=== PATIENT | female | born 1965 | race African-American/Black ===

== ENCOUNTER → 2022-11-16 07:08 | Outpatient (CLI) | payer BC, SELFPAY ==
--- NOTE | ~2022-11-16 | XR_ITS ---
Clinical Indication: Abnormal finding of lung field PA and lateral views of the chest: Comparison: None Findings: The lungs are clear, without evidence of focal consolidation or pleural effusion. Cardiome diastinal silhouette is within normal limits. Bones and soft tissues are unremarkable. Impression: Normal chest. Reviewed, dictated and finalized at location . Impression: Normal chest.
== END ==
DX: R91.8 Other nonspecific abnormal finding of lung field (principal)
CPT/HCPCS: 71046

== ENCOUNTER 2024-04-09 15:04 | Outpatient (CLI) | payer BC, SELFPAY ==
--- OUTSIDE RECORDS SUMMARY | 2024-04-09 16:52 | XMS_ITS | Encounter Summary ---
Author Organization [facility] Address [address] [place] [address] Phone Care Team Providers Care Civil Division Commander Deputy Sheriff Name Role Phone Marcus Shannon MD Primary Care Provider [phone] Reason for Visit * Reason Comments Medication Refill Encounter Details Date Type Department Care Team (Late st Contact Info) Description 07/25/2023 Refill [facility] - [facility] [address] [place] [address] Marcus Shannon MD [address] [address] Medication Refill Social History Tobacco Use Types Packs/Day Years Used Date Smoking Tobacco: Never Smokeless Tobacco: Never Alcohol Use Standard Drinks/Week Comments Yes 0 (1 standard drink = 0.6 oz pur e alcohol) occasionally PHQ-2 Answer Date Recorded Total Score - Questions 1-9 0 09/05 Education Answer Date Recorded What is the highest level of school you have completed or the highest degree you have received? Bachelor's degree (e.g., BA, AB, BS) 11/04/2020 Sexually Active Control Partners Comments Not Currently Comments No Sex and Gender Information Value Date Recorded Sex Assigned at Not on file Legal Sex Female 12:46 PM CDT Gender Identity Not on file Sexual Orientation Not on file documented as of this encounter Miscellaneous Notes * Telephone Encounter - iNcole Hays RN - 07/25/2023 10:58 AM CDT Medication(s) refilled and signed per [facility] Chronic Medication Refill Standing Order for Pediatricand Adult Patients. Requested Prescriptions Pending Prescriptions Disp Refills metoprolol Succinate (TOPROL-XL) 50 MG TABLET SR 24 HR [Pharmacy Med Name: Metoprolol Succinate ER 50 MG Oral Tablet Extended Release 24 Hour] 90 Tablet 1 Sig: Take 1 tablet by mouth once daily Beta-Blockers Protocol Passed - 07/25/2023 6:50 AM Passed - BP on record in the past year Clinician-entered: BP Readings from Last 3 Encounters: 04/19/23 120/84 06/15/22 126/82 03/02/22 130/76 Patient-entered: No data recorded Passed - Visit with relevant provider in past 12 months or upcoming 90 days Recent Visits Date Type Provider Dept 04/19/23 Office Visit Marcus Shannon MD [facility] [place] Showing recent visits within past 365 days and meeting all other requirements Future Appointments Date Type Provider Dept 08/02/23 Appointment Marcus Shannon MD [facility] Showing future appointments within next 90 days and meeting all other requirements documented in this encounter Plan of Treatment Upcoming Encounters Date Type Department Care Team (Late st Contact Info) Description 06/05/2024 2:30 PM CDT Office Visit [facility] - [facility] - [address] [place] [address] Marcus Shannon MD [address] [address] documented as of this encounter Visit Diagnoses Not on filedocumented in this encounter Additional Health Concerns Assessment Noted Time PHQ-9 Depression Total Score: 0 05/08/19 21 9:00 AM CDT documented as of this encounter Care Teams Civil Division Commander Deputy Sheriff Relationship Specialty Start Date End Date Marcus Shannon MD [address] [address] PCP - General Family Medicine 07/06/16 documented as of this encounter
--- OUTSIDE RECORDS SUMMARY | 2024-04-09 16:52 | XMS_ITS | Patient Health Summary ---
Author Organization [facility] Address [address] [place] [address] Care Team Providers Care Treasury Assistant Name Role Phone Mary Jo Ellis MD Primary Care Provider [phone] Note from [facility],non-owned Affiliates and Associated Physician Practices is amultiple site organization consisting of ambulatory clinics and hospital sitesin [place], [place], [place] and [place]. This disclosure is being madepursuant to the Care Everywhere program and may not contain all information available regarding this patient. Last updated 17.[facility] Social History Tobacco Use Types Packs/Day Years Used Date Smoking Tobacco: Never Assessed Sex and Gender Information Value Date Recorded Sex Assigned at Not on file Gender Identity Not on file Sexual Orientation Not on file Procedures * SARS-COV-2 (COVID-19) IN HOUSE(Performed 08/20/2019) * SARS-COV-2 (COVID-19) IN HOUSE(Performed 07/15/2019) * MAMMO BILAT SCREENING(Performed 09/10/2013) Performed for Other screening mammogram * US BREAST LEFT COMPLETE(Performed 08/14/2012) Performed for Abnormal Mammogram, Unspecified * MAMMO LEFT DIAGNOSTIC(Performed 08/14/2012) Performed for Abnormal Mammogram, Unspecified * US PELVIS W TRANSVAG NON OB(Performed 02/14/2010) Performed for Unspecified symptom associated with female genital organs * GROSS + MICRO EXAM(Performed 03/06/2007) Results * SARS-COV-2 (COVID-19) IN HOUSE (08/20/2019 8:00 AM CDT) Only the most recent of2 resultswithin the time period is included. COVID-19 PCR Not detected Not detected, Invalid 08/22/2019 10:10 PM CDT [facility] Microbiology SPECIMEN FROM NASOPHARYNGEAL STRUCTURE / Unknown Collection / Unknown 08/20/2019 8:00 AM CDT 08/22/2019 11:01 AM CDT Narrative [facility] - 08/22/2019 10:10 PM CDT This Real Time RT-PCR assay was developed and its performance characteristics determined by [facility]. This test has been authorized by the Food and Drug administration (FDA)under an Emergency Use Authorization (EUA). This test has been validated in accordance with the FDA's guidance document Policy for Diagnostic Testing in Laboratories Certified to perform High Complexity Testing under CLIA prior to Emergency Use Authorization for Coronavirus Disease-2019 during the Public Health Emergency issued on April 05, 2019. FDA independent review of this validation is pending. This test is only authorized for the duration of time the declaration that circumstances exist justifying the authorization of emergency use of in vitro diagnostic tests for detection of SARS-CoV-2 virus and/or diagnosis of COVID-19 infection under section 564(b)(1) of the Act, 21 U.S.C 360bbb-3 (b)(1), unless the authorization is terminated or revoked sooner. Gerardo Bedoya MD LAB - MICROBIOLOGY ORDERABLES [facility] [address] [place], [place] [id number] [place] [address] * MIRANDA SCREENING DIGITAL IMAGE BILATERAL [id number] (09/10/2013 1:37 PM CDT) Anatomical Region Laterality Modality Breast Bilateral Mammography 09/15/2013 9:34 AM CDT Narrative 09/15/2013 9:34 AM CDT EXAMINATION: Digital screening mammogram on 09/10/2013. PRIOR: 2012 [facility] now available FINDINGS: Computer assisted detection was utilized. The tissue density is predominantly fatty. There is no significant change since the prior mammogram. ASSESSMENT: BIRADS Category 1: Negative mammogram. RECOMMENDATION: Follow up in one year. Thank you for allowing us to participate in the care of your patient. [facility] Breast [facility] utilizes [employer] as a reminder system to notify patients of their next recommended mammogram. Lauren Jacobson MD MAMMO ORDERABLES * US BREAST UNILATERAL LEFT (08/14/2012 10:52 AM CDT) Anatomical Region Laterality Modality Breast Left Ultrasound 08/14/2012 11:0 8 AM CDT Narrative 08/14/2012 11:08 AM CDT EXAMINATION: Left digital diagnostic mammogram on 08/14/2012 with left breast ultrasound. INDICATION: Abnormal screening mammogram FINDINGS: Computer assisted detection was utilized. The tissue density is almost completely fatty. The patient was sent for additional evaluation of a possible lesion based on a abnormal screening mammogram obtained at [facility] on 08/09/2012. The images from that study are available for review as is the report. Images today show possible small nodules present in the area of original concern. No definite discrete nodular lesion is demonstrated. A targeted left breast sonogram is then performed. At the six o'clock position 1 cm from the nipple a 3 mm complicated cyst is present. At the seven o'clock position 2 cm from the nipple, a 4 mm hypoechoic avascular wider than taller nodule is present most compatible with a complicated cyst. A similar but slightly smaller complicated cyst is present at the nine o'clock position 5 cm from the nipple. No suspicious findings are seen. ASSESSMENT: BIRADS Category 1: Negative mammogram.. RECOMMENDATION: One year followup screening mammogram. Procedure Note Von Taylor MD - 08/14/2012 EXAMINATION: Left digital diagnostic mammogram on 08/14/2012 with left breast ultrasound. INDICATION: Abnormal screening mammogram FINDINGS: Computer assisted detection was utilized. The tissue density is almost completely fatty. The patient was sent for additional evaluation of a possible lesion based on a abnormal screening mammogram obtained at [facility] on 08/09/2012. The images from that study are available for review as is the report. Images today show possible small nodules present in the area of original concern. No definite discrete nodular lesion is demonstrated. A targeted left breast sonogram is then performed. At the six o'clock position 1 cm from the nipple a 3 mm complicated cyst is present. At the seven o'clock position 2 cm from the nipple, a 4 mm hypoechoic avascular wider than taller nodule is present most compatible with a complicated cyst. A similar but slightly smaller complicated cyst is present at the nine o'clock position 5 cm from the nipple. No suspicious findings are seen. ASSESSMENT: BIRADS Category 1: Negative mammogram.. RECOMMENDATION: One year followup screening mammogram. Saw Longoria MD US ORDERABLES * MIRANDA DIAG DIRECT DIG IMAGE UNI LEFT [id number] (08/14/2012 10:38 AM CDT) Anatomical Region Laterality Modality Left Mammography 08/14/2012 11:0 8 AM CDT Narrative 08/14/2012 11:08 AM CDT EXAMINATION: Left digital diagnostic mammogram on 08/14/2012 with left breast ultrasound. INDICATION: Abnormal screening mammogram FINDINGS: Computer assisted detection was utilized. The tissue density is almost completely fatty. The patient was sent for additional evaluation of a possible lesion based on a abnormal screening mammogram obtained at [facility] on 08/09/2012. The images from that study are available for review as is the report. Images today show possible small nodules present in the area of original concern. No definite discrete nodular lesion is demonstrated. A targeted left breast sonogram is then performed. At the six o'clock position 1 cm from the nipple a 3 mm complicated cyst is present. At the seven o'clock position 2 cm from the nipple, a 4 mm hypoechoic avascular wider than taller nodule is present most compatible with a complicated cyst. A similar but slightly smaller complicated cyst is present at the nine o'clock position 5 cm from the nipple. No suspicious findings are seen. ASSESSMENT: BIRADS Category 1: Negative mammogram.. RECOMMENDATION: One year followup screening mammogram. Procedure Note Von Taylor MD - 08/14/2012 EXAMINATION: Left digital diagnostic mammogram on 08/14/2012 with left breast ultrasound. INDICATION: Abnormal screening mammogram FINDINGS: Computer assisted detection was utilized. The tissue density is almost completely fatty. The patient was sent for additional evaluation of a possible lesion based on a abnormal screening mammogram obtained at [facility] on 08/09/2012. The images from that study are available for review as is the report. Images today show possible small nodules present in the area of original concern. No definite discrete nodular lesion is demonstrated. A targeted left breast sonogram is then performed. At the six o'clock position 1 cm from the nipple a 3 mm complicated cyst is present. At the seven o'clock position 2 cm from the nipple, a 4 mm hypoechoic avascular wider than taller nodule is present most compatible with a complicated cyst. A similar but slightly smaller complicated cyst is present at the nine o'clock position 5 cm from the nipple. No suspicious findings are seen. ASSESSMENT: BIRADS Category 1: Negative mammogram.. RECOMMENDATION: One year followup screening mammogram. Saw Longoria MD MAMMO ORDERABLES * US PELVIS WITH TRANSVAG NON OB (02/14/2010 10:54 AM FISCAL ANALYST) Anatomical Region Laterality Modality Pelvis Ultrasound 02/14/2010 1:22 PM FISCAL ANALYST Impressions 02/14/2010 3:34 PM FISCAL ANALYST 1. Absent uterus. 2. No pelvic abscess or abnormal fluid collection is seen. 3. Probably hemorrhagic cysts in both ovaries as described. 4. Normal Doppler flow to both ovaries. Narrative 02/14/2010 3:34 PM FISCAL ANALYST Pelvic sonogram: HISTORY: Right pelvic pain. History of hysterectomy. A transabdominal and endovaginal pelvic sonogram as well as Doppler ultrasound are obtained. The uterus is surgically absent. There is no mass identified. No abnormal fluid collection to indicate an abscess. There is a complex nodule measuring 17.2 x 13.9 mm in diameter in the left ovary which measures 4 x 2.2 cm in diameter. The finding is probably a hemorrhagic cyst. Followup examination recommended. There is a 3.1 x 4.9 x 4.5 mm follicle in the right ovary. In addition, there is a hypoechoic nodule measuring 6.4 x 7 x 6.5 mm in diameter in the right ovary. The finding may represent a cyst with debris or a hemorrhagic cyst. The right ovary measures 2.6 x 1.7 x 2.5 cm in diameter. Doppler ultrasound images of both ovaries are obtained and show positive Doppler flow. Procedure Note Chata Del Rosario MD - 02/14/2010 Pelvic sonogram: HISTORY: Right pelvic pain. History of hysterectomy. A transabdominal and endovaginal pelvic sonogram as well as Doppler ultrasound are obtained. The uterus is surgically absent. There is no mass identified. No abnormal fluid collection to indicate an abscess. There is a complex nodule measuring 17.2 x 13.9 mm in diameter in the left ovary which measures 4 x 2.2 cm in diameter. The finding is probably a hemorrhagic cyst. Followup examination recommended. There is a 3.1 x 4.9 x 4.5 mm follicle in the right ovary. In addition, there is a hypoechoic nodule measuring 6.4 x 7 x 6.5 mm in diameter in the right ovary. The finding may represent a cyst with debris or a hemorrhagic cyst. The right ovary measures 2.6 x 1.7 x 2.5 cm in diameter. Doppler ultrasound images of both ovaries are obtained and show positive Doppler flow. IMPRESSION 1. Absent uterus. 2. No pelvic abscess or abnormal fluid collection is seen. 3. Probably hemorrhagic cysts in both ovaries as described. 4. Normal Doppler flow to both ovaries. Saw Longoria MD US ORDERABLES * GROSS + MICRO EXAM (03/06/2007 11:22 AM FISCAL ANALYST) Result CASE NUMBER [id number] Comment: ORDERING PHYSICIAN VON CUBA SPECIMEN TYPE Cyst-post neck Surgeon DR. VON CUBA Gross Exam JOSEFA VALDES Gross Report COPY TO INDICATION FOR PROCEDURE SEBACEOUS CYST POSTERIOR NECK OPERATION I/D INFECTED SEBACEOUS CYST POSTERIOR NECK GROSS THE SPECIMEN IS RECEIVED IN ONE CONTAINER LABELED WITH THE PATIENT'S NAME AND SEBACEOUS CYST POSTERIOR NECK . THE SPECIMEN IS RECEIVED IN FORMALIN AND CONSISTS OF A 1.5 X 1 X 0.8 CM. DISRUPTED CYST NODULE WITH AN ATTACHED 1 X 0.5 CM. UNREMARKABLE ELLIPSE OF WELLS, BROWN SKIN. THE CYST LUMEN IS LINED BY BAITSTA BROWN KERATINOUS MATERIAL. THE SPECIMEN IS SERIALLY SECTIONED AND THEN ENTIRELY SUBMITTED IN A SINGLE CASSETTE. LW/CS MICROSCOPIC EXAM MICROSCOPIC SECTIONS OF THE SEBACEOUS CYST OF THE POSTERIOR NECK SHOW A SKIN FRAGMENT. WITHIN THE DERMIS, EPIDERMAL INCLUSION CYST IS PRESENT. THE CYST WALL IS COMPOSED OF SQUAMOUS EPITHELIUM WITH IDENTIFIABLE GRANULAR LAYER. THE CYST LUMEN IS IN PART FILLED WITH KERATIN DEBRIS. JW/CS DIAGNOSIS DIAGNOSIS [1] SEBACEOUS CYST POSTERIOR NECK -- EPIDERMAL INCLUSION CYST JW/CS Released By KRISTI PINO CPT Code 87614 MISCELLANEOUS SAMPLES / Unknown 03/06/2007 11:22 AM FISCAL ANALYST 03/06/2007 11:23 AM FISCAL ANALYST Historical Provider MD LAB - PATHOLOGY/C YTOLOGY ORDERABLES Care Teams Treasury Assistant Relationship Specialty Start Date End Date Mary Jo Ellis MD [facility] [address] [place] [id number] PCP - General 03/06/18
--- OUTSIDE RECORDS SUMMARY | 2024-04-09 16:52 | XMS_ITS | Encounter Summary ---
Author Organization [facility] Address [address] [place] [address] Phone Care Team Providers Care Lead Technical Writer Name Role Phone Marcus Shannon MD Primary Care Provider [phone] Reason for Visit * Reason Comments Medication Refill Encounter Details Date Type Department Care Team (Late st Contact Info) Description 04/05/2023 Refill [facility] - Family Medicine [facility] [address] [place] [address] Marcus Shannon MD [address] [address] Medication Refill Social History Tobacco Use Types [...] encounter Miscellaneous Notes * Telephone Encounter - Nicole Hays RN - 04/05/2023 9:36 AM CST Medication failed the protocol, provider to review and approve the medication order if appropriate. Requested Prescriptions Pending Prescriptions Disp Refills metFORMIN (GLUCOPHAGE) 500 MG Tablet [Pharmacy Med Name: metFORMIN HCl 500 MG Oral Tablet] 60 Tablet 0 Sig: TAKE 1 TABLET BY MOUTH TWICE DAILY WITH MEALS Biguanides Protocol Failed - 04/05/2023 6:51 AM Failed - HgA1C on record in past 6 months HGB-A1C Date Value Ref Range Status 03/02/2022 6.3 (H) 4.0 - 6.0 % Final Failed - GFR on record in past 6 months No results found for: GFRA Passed - Visit with relevant provider in past 6 months or upcoming 90 days Recent Visits No visits were found meeting these conditions. Showing recent visits within past 182 days and meeting all other requirements Future Appointments Date Type Provider Dept 04/19/23 Appointment Marcus Shannon MD [facility] Showing future appointments within next 90 days and meeting all other requirements CREW SUPPORT WORKER documented in this encounter Plan of Treatment Upcoming Encounters Date Type Department Care Team (Late st Contact Info) Description 06/05/2024 2:30 PM CDT Office Visit [facility] - Family Medicine - [address] [place] [address] Marcus Shannon MD [address] [address] documented as of this encounter Visit Diagnoses Not on filedocumented in this encounter Additional Health Concerns Assessment Noted Time PHQ-9 Depression Total Score: 0 05/08/19 21 9:00 AM CDT documented as of this encounter Care Teams Lead Technical Writer Relationship Specialty Start Date End Date Marcus Shannon MD [address] [address] PCP - General Family Medicine 07/06/16 documented as of this encounter
--- OUTSIDE RECORDS SUMMARY | 2024-04-09 16:52 | XMS_ITS | Encounter Summary ---
Author Organization [facility] Address [address] [place] [address] Phone Care Team Providers Care Insurance Marketing Rep Name Role Phone Marcus Shannon MD Primary Care Provider [phone] Reason for Visit * Reason Comments Medication Refill Encounter Details Date Type Department Care Team (Late st Contact Info) Description 08/31/2021 Refill [facility] - [facility] [address] [place] [address] Marcus Shannon MD [address] [address] Medication Refill Social History Tobacco Use Types Packs/Day Years Used Date Smoking Tobacco: Never Smokeless Tobacco: Never Alcohol Use Standard Drinks/Week Comments Yes 0 (1 standard drink = 0.6 oz pur e alcohol) occasionally PHQ-2 Answer Date Recorded Total Score - Questions 1-9 0 04/0 03/2020 Education Answer Date Recorded What is the [...] Telephone Encounter - Nicole Hays RN - 08/31/2021 2:17 PM CDT metoprolol Succinate (TOPROL-XL) 50 MG TABLET SR 24 HR 90 Tablet 0 08/15/2021 Sig: Take 1 tablet by mouth once daily Sent to pharmacy as: Metoprolol Succinate ER 50 MG Oral Tablet Extended Release 24 Hour (TOPROL-XL) Class: E Prescribe E-Prescribing Status: Receipt confirmed by pharmacy (08/15/2021 ??9:31 AM CDT) Order Questions ?? metoprolol Succinate (TOPROL-XL) 50 MG TABLET SR 24 HR [[id number]] 8 Status: Active Mode: Ordering in Standing Orders mode Communicated by: Nicole Hays RN Ordering user: Nicole Hays RN 08/15/21930 Ordering provider: Marcus Shannon MD Authorized by: Marcus Shannon MD Frequency: ??08/15/21 - Until Discontinued Released by: Nicole Hays RN 08/15/[address] documented in this encounter Plan of Treatment Upcoming Encounters Date Type Department Care Team (Late st Contact Info) Description 06/05/2024 2:30 PM CDT Office Visit [facility] - Family Medicine - [place] [address] [place] [address] Marcus Shannon MD [address] [address] documented as of this encounter Visit Diagnoses Not on filedocumented in this encounter Additional Health Concerns Assessment Noted Time PHQ-9 Depression Total Score: 0 05/08/19 21 9:00 AM CDT documented as of this encounter Care Teams Insurance Marketing Rep Relationship Specialty Start Date End Date Marcus Shannon MD [address] [place] [id number] PCP - General Family Medicine 07/06/16 documented as of this encounter
--- OUTSIDE RECORDS SUMMARY | 2024-04-09 16:52 | XMS_ITS | Encounter Summary ---
Author Organization [facility] Address [address] [place] [address] Phone Care Team Providers Care Doorperson Or Luggage Porter Name Role Phone Marcus Shannon MD Primary Care Provider [phone] Reason for Visit * Reason Comments Medication Refill Encounter Details Date Type Department Care Team (Late st Contact Info) Description 03/02/2023 Refill [facility] - [facility] [address] [place] [address] Marcus Shannon MD [address] [address] Medication Refill Social History Tobacco Use Types [...] encounter Miscellaneous Notes * Telephone Encounter - Payton Saeed RMA - 03/06/2023 1:44 PM PHOTO MASK PATTERN GENERATOR scheduled O MASK PATTERN GENERATOR * Telephone Encounter - Nicole Hays RN - 03/02/2023 3:05 PM CST Needs OV with PCP O MASK PATTERN GENERATOR * Telephone Encounter - Nicole Hays RN - 03/02/2023 3:05 PM CST Medication failed the protocol, provider to review and approve the medication order if appropriate. Requested Prescriptions Pending Prescriptions Disp Refills metFORMIN (GLUCOPHAGE) 500 MG Tablet [Pharmacy Med Name: metFORMIN HCl 500 MG Oral Tablet] 60 Tablet 0 Sig: TAKE 1 TABLET BY MOUTH TWICE DAILY WITH MEALS Biguanides Protocol Failed - 03/02/2023 10:54 AM Failed - Visit with relevant provider in past 6 months or upcoming 90 days Recent Visits No visits were found meeting these conditions. Showing recent visits within past 182 days and meeting all other requirements Future Appointments No visits were found meeting these conditions. Showing future appointments within next 90 days and meeting all other requirements Failed - HgA1C on record in past 6 months HGB-A1C Date Value Ref Range Status 03/02/2022 6.3 (H) 4.0 - 6.0 % Final Failed - GFR on record in past 6 months No results found for: GFRA O MASK PATTERN GENERATOR documented in this encounter Plan of Treatment Upcoming Encounters Date Type Department Care Team (Late st Contact Info) Description 06/05/2024 2:30 PM CDT Office Visit [facility] - [facility] Medicine [facility] [address] [place] [address] Marcus Shannon MD #[address] [address] documented as of this encounter Visit Diagnoses Not on filedocumented in this encounter Additional Health Concerns Assessment Noted Time PHQ-9 Depression Total Score: 0 05/08/19 21 9:00 AM CDT documented as of this encounter Care Teams Doorperson Or Luggage Porter Relationship Specialty Start Date End Date Marcus Shannon MD [address] [place] [id number] PCP - General Family Medicine 07/06/16 documented as of this encounter
--- OUTSIDE RECORDS SUMMARY | 2024-04-09 16:52 | XMS_ITS | Referral Summary ---
Author Organization [facility] Address [address] [place] [address] Care Team Providers Care Mailing Specialist Name Role Phone Mary Jo Ellis MD Primary Care Provider [phone] Source Comments [facility],non-owned Affiliates and Associated Physician Practices is amultiple site organization consisting of ambulatory clinics and hospital sitesin [place], [place], [place] and [place]. This disclosure is being madepursuant to the Care Everywhere program and may not contain all information available regarding this patient. Last updated 17.[facility] depict Social History Tobacco Use Types Packs/Day Years Used Date Smoking Tobacco: Never Assessed Sex and Gender Information Value Date Recorded Sex Assigned at Not on file Gender Identity Not on file Sexual Orientation Not on file Plan of Treatment Not on file Procedures Procedure Name Priority Date/Time Associated Diagnosis Comments MAMMO BILAT SCREENING Routine 09/10/2013 1:37 PM CDT Other screening mammogram from Last 3 Months or Most Recently Relevant to Health Maintenance Results * MIRANDA SCREENING DIGITAL IMAGE BILATERAL [id number] (09/10/2013 1:37 PM CDT) Anatomical Region Laterality Modality Breast Bilateral Mammography 09/15/2013 9:34 AM CDT Narrative 09/15/2013 9:34 AM CDT EXAMINATION: Digital screening mammogram on 09/10/2013. PRIOR: 2012 [facility] now available FINDINGS: Computer assisted detection was utilized. The tissue density is predominantly fatty. There is no significant change since the prior mammogram. ASSESSMENT: BIRADS Category 1: Negative mammogram. RECOMMENDATION: Follow up in one year. Thank you for allowing us to participate in the care of your patient. [facility] utilizes [employer] as a reminder system to notify patients of their next recommended mammogram. Lauren Jacobson MD MAMMO ORDERABLES from Last 3 Months or Most Recently Relevant to Health Maintenance Care Teams Mailing Specialist Relationship Specialty Start Date End Date Mary Jo Ellis MD [address] [place] [address] PCP - General 03/06/18
--- OUTSIDE RECORDS SUMMARY | 2024-04-09 16:52 | XMS_ITS | Encounter Summary ---
Author Organization [facility] Address [address] [place] [address] Phone Care Team Providers Care Carpenter Cradle And Dolly Name Role Phone Marcus Shannon MD Primary Care Provider [phone] Reason for Visit * Reason Comments Medication Refill Encounter Details Date Type Department Care Team (Late st Contact Info) Description 04/21/2023 Refill [facility] - Family Medicine [facility] [address] [place] [address] Marcus Shannon MD [address] [address] Medication Refill Social History Tobacco Use Types [...] encounter Miscellaneous Notes * Telephone Encounter - Flor Wayne RN - 04/21/2023 11:44 AM CDT Medication(s) refilled and signed per [facility] Chronic Medication Refill Standing Order for Pediatricand Adult Patients. Requested Prescriptions Pending Prescriptions Disp Refills metoprolol Succinate (TOPROL-XL) 50 MG TABLET SR 24 HR [Pharmacy Med Name: Metoprolol Succinate ER 50 MG Oral Tablet Extended Release 24 Hour] 90 Tablet 0 Sig: Take 1 tablet by mouth once daily Beta-Blockers Protocol Passed - 04/21/2023 9:05 AM Passed - BP on record in the past year Clinician-entered: BP Readings from Last 3 Encounters: 04/19/23 120/84 06/15/22 126/82 03/02/22 130/76 Patient-entered: No data recorded Passed - Visit with relevant provider in past 12 months or upcoming 90 days Recent Visits Date Type Provider Dept 04/19/23 Office Visit Marcus Shannon MD [facility] 06/15/22 Office Visit Paul Russ APRN, MARKET CONSULTANT [facility] Showing recent visits within past 365 days and meeting all other requirements Future Appointments No visits were found meeting these conditions. Showing future appointments within next 90 days and meeting all other requirements documented in this encounter Plan of Treatment Upcoming Encounters Date Type Department Care Team (Late st Contact Info) Description 06/05/2024 2:30 PM CDT Office Visit [facility] - Family [facility] - [place] [address] [place] [address] Marcsu Shannon MD [address] [address] documented as of this encounter Visit Diagnoses Not on filedocumented in this encounter Additional Health Concerns Assessment Noted Time PHQ-9 Depression Total Score: 0 05/08/19 21 9:00 AM CDT documented as of this encounter Care Teams Carpenter Cradle And Dolly Relationship Specialty Start Date End Date Marcus Shannon MD #[address] [address] PCP - General Family Medicine 07/06/16 documented as of this encounter
--- OUTSIDE RECORDS SUMMARY | 2024-04-09 16:52 | XMS_ITS | Clinical Summary ---
Author Organization [facility] Address [address] [place] [address] Phone Care Team Providers Care Aquatic Scientist Name Role Phone Marcus Shannon MD Primary Care Provider [phone]- [phone] Allergies Active Allergy Reactions Criticality Noted Date Comments Tetracycline Anaphylaxis High 07/06/2016 Cetirizine Hcl Other (see Comments) Low 08/20/2019 Makes her feel funny , disconnected , lightheaded Medications Multiple Vitamin (MULTI-VITAMIN PO) Take by mouth every morning. Active Cholecalciferol (Vitamin D3) 1000 UNIT Tablet Take by mouth. Activ e famotidine (PEPCID) 20 MG Tablet Take 1 Tablet by mouth 2 times daily. 90 Tablet 3 05/21/19 21 Active pantoprazole (PROTONIX) 40 MG Tablet Delayed ResponseIndicat ions:Gastroesop hageal reflux disease, unspecified whether esophagitis present Take 1 Tablet by mouth daily. 30 Tablet 2 03/01/19 23 Active Additional Information Patient not taking.Reported on 04/19/2023 atorvastatin (LIPITOR) 10 MG Tablet Take 1 Tablet by mouth daily. 90 Tablet 3 04/19/19 24 Active EQ Aspirin Adult Low Dose 81 MG Tablet Delayed Response Take 1 tablet by mouth once daily 100 Tablet 1 08/03/19 24 Active probiotic (VSL#3) Pack 1 Packet by Per NG tube route daily. Active [place]-3 Fatty Acids (FISH OIL PO) Take by mouth. Activ e fluticasone (FLONASE) 50 MCG/ACT Suspension 1 [place] by Nasal route daily. Use in each nostril as directed. 18.2 mL 11/21/19 24 Active metoprolol Succinate (TOPROL-XL) 50 MG TABLET SR 24 HR Take 1 tablet by mouth once daily 90 Tablet 1 01/28/20 24 Active metFORMIN (GLUCOPHAGE) 500 MG Tablet TAKE 1 TABLET BY MOUTH TWICE DAILY WITH MEALS 60 Tablet 03/24/19 25 Active metFORMIN (GLUCOPHAGE) 500 MG Tablet TAKE 1 TABLET BY MOUTH TWICE DAILY WITH MEALS 60 Tablet 02/19/19 25 025 Discontinued Active Problems Problem Noted Date Diagnosed Date Type 2 diabetes mellitus treated without insulin 03/02/2022 Moderate obstructive sleep apnea 10/06/2020 Diet-controlled type 2 diabetes mellitus 021 Hyperlipidemia 06/19/2020 Diabetic eye exam 06/19/2020 Postprandial epigastric pain 05/20/2020 Belching 05/20/2020 Obesity (BMI 30-39.9) 05/07/2020 Shingles 01/08/2019 Elevated hemoglobin A1c 03/03/2018 Vitamin D insufficiency 07/09/2016 Hyperglycemia 07/09/2016 Prediabetes 07/09/2016 Elevated liver enzymes 07/09/2016 Non morbid obesity 07/06/2016 Tachycardia 07/06/2016 High blood pressure 07/06/2016 Family history of diabetes mellitus (DM) 017 Gastroesophageal reflux disease 07/06/2016 Abnormal EKG 07/06/2016 Encounters Date Type Department Care Team Description 03/23/2024 Refill [facility] [place] [id number] Marcus Shannon MD Medication Refill 02/20/2024 Refill [facility] [place] [address] Marcus Shannon MD Medication Refill 01/27/2024 Refill [facility] [address] [place] [address] Marcus Shannon MD Medication Refill from Last 3 Months Immunizations Immunization Administration Dates Next Due Covid-19, Mrna, Lnp-s, Pf, 3 0 Mcg/0.3 Ml Dose (TriActive) 05/07/2020,04/16/2020 Influenza Vaccine greater than 3 yrs 11/19/2010, 11/16/2008 Influenza Vaccine less than 3 yrs 01/05/2022 Influenza Vaccine, MDCK,quad rivalent, pres free 11/10/2019,11/14/2018 Influenza Vaccine, Quadrivalent, PF 2020,1 02/06/2017,11/21/2016 Influenza, Seasonal, Injectable, Undefined 01/05 Td (Adult) 11/16/2008 Family History Medical History Relation Name Comments Diabetes Brother Hypertension Brother Diabetes Maternal Aunt Hypertension Maternal Aunt Cancer Mother cervical Diabetes Mother Hypertension Mother Diabetes Sister Hypertension Sister Relation Name Status Comments Brother Alive Maternal Aunt Mother Sister Alive Social History Tobacco Use Types Packs/Day Years [...] on file Sexual Orientation Not on file Last Filed Vital Signs Vital Sign Reading Time Taken Comments Blood Pressure 134/82 11/21/2023 9:18 AM CDT Pulse 66 11/21/2023 9:13 AM CDT Temperature 36.5 C (97.7 F) 11/21/2023 9:13 AM CDT Respiratory Rate 20 11/21/2023 9:13 AM CDT Oxygen Saturation 98% 11/21/2023 9:13 AM CDT Inhaled Oxygen Concentration - - Weight 110.2 kg (243 lb) 04/19/2023 4:08 PM CDT Height 172.7 cm (5' 8 ) 04/19/2023 4:08 PM CDT Body Mass Index 36.95 04/19/2023 4:08 PM CDT Plan of Treatment Upcoming Encounters Date Type Department Care Team (Late st Contact Info) Description 06/05/2024 2:30 PM CDT [facility] [place] [address] [place] [address] Marcus Shannon MD [address] [address] Health Maintenance Due Date Last Done Comments Diabetes: Eye Exam 1964 Diabetes: Foot Exam 1965 TdaP Immunization 1964 Hepatitis B Immunization (1 of 3 - 19+ 3-dose series) 11/09/1983 Pneumococcal Immunization (50+ years) (1 of 2 - PCV) 11/09/1983 HPV/Cotest 1994 Cologuard 2014 Immunochemical Fecal Occult Blood 2014 Zoster Immunization (1 of 2) 2014 Diabetes: Nephropathy Screening 2021 2020, 05/07/2020, 07/07/2016 Diabetes: Hemoglobin A1c 08/30/2022 023, 09/15/2021, 2020, Additional history exists Mammogram 07/05/2024 07/06/2023, 02/06, 11/30/2020, Additional history exists Colonoscopy 07/17/2024 07/18/2019 Colorectal Cancer Screening 07/17/2024 Respiratory Syncytial Virus (RSV) Immunization (Adult) (1 - 1-dose 75+ series) 11/09/2039 07/18/2019 DTaP/Tdap/Td Immunization Discontinued 11/16/2008 Hepatitis C Virus (HCV) Screening Completed 02/19/2018 Influenza Immunization Completed , 01/05/2022, 2020, Additional history exists SARS-COV-2 Immunization Completed 11/23/19 24, 04/21/2023, 01/21/2021, Additional history exists Cervical Cancer Screening (CCS) Discontinued Meningococcal Immunization (ACWY) Aged Out No longer eligible based on patient's age to complete this topic Pap Smear Discontinued Rotavirus Immunization Aged Out No lo nger eligible based on patient's age to complete this topic Procedures Procedure Name Priority Date/Time Associated Diagnosis Comments MIRANDA SCREENING BILATERAL DIGITAL W CAD W SURESH Routine 07/06/2023 12:26 PM CDT Visit for screening mammogram HEMOGLOBIN A1C W/ ESTIMATED GLUCOSE Routine 03/02/2022 3:32 PM RACE RELATIONS ADVISER Type 2 diabetes mellitus treated without insulin (HCC) CMP (COMPREHENSIVE METABOLIC PANEL) Routine 2020 9:30 AM CDT Hyperlipidemia, unspecified hyperlipidemia type HEPATITIS PANEL ACUTE (AHP) Routine 02/19/2018 4:29 PM RACE RELATIONS ADVISER Elevated liver enzymes from Last 3 Months or Most Recently Relevant to Health Maintenance Results * MIRANDA SCREENING BILATERAL DIGITAL W CAD W SURESH (07/06/2023 12:26 PM CDT) Anatomical Region Laterality Modality breast Bilateral Mammography 07/06/2023 1:40 PM CDT Narrative 07/06/2023 5:31 PM CDT - MIRANDA SCREENING BILATERAL DIGITAL W CAD W SURESH BILATERAL DIGITAL SCREENING MAMMOGRAM 3D/2D WITH CAD WITH MEDIOLATERAL OBLIQUE CRANIOCAUDAL: 07/06/2023 The study was acquired using digital technology and interpreted from soft copy. Current study was also evaluated with ICAD version 7.2. 2D digital mammographic views, as well as 3D digital tomosynthesis were performed in the CC and MLO projections. CLINICAL: Routine screening. Patient has no complaints. No personal history of cancer. No family history of breast cancer. COMPARISONS: Comparison is made to exams dated: 03/02/2022, 11/30/2020, and 12/03/2019 [facility]. BREAST TISSUE:There are scattered fibroglandular densities in both breasts. FINDINGS: No significant masses, calcifications, or other findings are seen in either breast. There has been no significant interval change. IMPRESSION: BI-RAD 1 NEGATIVE There is no mammographic evidence of malignancy. A 1 year screening mammogram is recommended. A letter will be sent to the patient with these results. The patient will be entered into a reminder system with a target due date of 1 year for her next screening exam. Electronically signed by: Morgan giordano/penrad:07/06/2023 16:07:11 Paper Coater(s): JAMILAH Vásquez)(M), [facility] letter sent: Normal Exam Reading location: [place] BI-RADS: 1 Negative Procedure Note Morgan Cain MD - 07/06/2023 - MIRANDA SCREENING BILATERAL DIGITAL W CAD W SURESH BILATERAL DIGITAL SCREENING MAMMOGRAM 3D/2D WITH CAD WITH MEDIOLATERAL OBLIQUE CRANIOCAUDAL: 07/06/2023 The study was acquired using digital technology and interpreted from soft copy. Current study was also evaluated with ICAD version 7.2. 2D digital mammographic views, as well as 3D digital tomosynthesis were performed in the CC and MLO projections. CLINICAL: Routine screening. Patient has no complaints. No personal history of cancer. No family history of breast cancer. COMPARISONS: Comparison is made to exams dated: 03/02/2022, 11/30/2020, and 12/03/2019 [facility]. BREAST TISSUE:There are scattered fibroglandular densities in both breasts. FINDINGS: No significant masses, calcifications, or other findings are seen in either breast. There has been no significant interval change. IMPRESSION: BI-RAD 1 NEGATIVE There is no mammographic evidence of malignancy. A 1 year screening mammogram is recommended. A letter will be sent to the patient with these results. The patient will be entered into a reminder system with a target due date of 1 year for her next screening exam. Electronically signed by: Morgan giordano/penrad:07/06/2023 16:07:11 Paper Coater(s): JAMILAH Vásquez)(M), [facility] letter sent: Normal Exam Reading location: [place] BI-RADS: 1 Negative Marcus Shannon MD IMG MAMMO ORDERABLES Final Result * (ABNORMAL) HEMOGLOBIN A1C W/ ESTIMATED GLUCOSE (03/02/2022 3:32 PM RACE RELATIONS ADVISER) HGB-A1C 6.3(H) 4.0 - 6.0 % 03/02/2022 4:18 PM RACE RELATIONS ADVISER [facility] Est Average Glucose 134.1 mg/dL 03/02/2022 4:18 PM RACE RELATIONS ADVISER [facility] Blood Venipuncture / Unknown 03/02/2022 3:32 PM RACE RELATIONS ADVISER 03/02/2022 3:32 PM RACE RELATIONS ADVISER Narrative [facility] - 03/02/2022 4:18 PM RACE RELATIONS ADVISER HEMOGLOBIN A1C: DIABETIC PATIENTS: WELL-CONTROLLED: 6.2 - 7.0 INTERMEDIATE WELL-CONTROLLED: 7.0 - 9.0 POORLY-CONTROLLED: >9.0 Marcus Shannon MD CHEMISTRY ORDERABLES Final Result [facility] [address] [place] [address] * (ABNORMAL) CMP (COMPREHENSIVE METABOLIC PANEL) (2020 9:30 AM CDT) [facility] SODIUM 138 136 - 144 mmol/L 2020 11:04 AM CDT [facility] POTASSIUM 4.1 3.5 - 5.1 mmol/L 2020 11:04 AM CDT [facility] CHLORIDE 101 100 - 110 mmol/L 2020 11:04 AM CDT [facility] CO2, VENOUS 27 22 - 32 mmol/L 2020 11:04 AM CDT [facility] ANION GAP 14.1 8.0 - 20.0 mmol/L 2020 11:04 AM CDT [facility] GLUCOSE 117(H) 70 - 99 mg/dL 2020 11:04 AM CDT [facility] BUN 13 6 - 20 mg/dL 2020 11:04 AM CDT [facility] CREATININE, BLOOD 0.86 0.60 - 1.10 mg/dL 2020 11:04 AM [facility] BUN/CREATININE RATIO 15 12 - 20 ratio 2020 11:04 AM [facility] TOTAL PROTEIN 7.8 6.0 - 8.3 g/dL 2020 11:04 AM [facility] ALBUMIN 4.4 3.5 - 5.2 g/dL 2020 11:04 AM [facility] Comment: The colormetric methods used for the determination of Albumin may lead to falsely elevated test results in patients suffering from renal failure or insufficiency due to interference with other proteins. A/G RATIO 1.3 1.0 - 2.0 2020 11:04 AM [facility] CALCIUM 9.4 8.9 - 10.3 mg/dL 2020 11:04 AM [facility] T BILI 0.4 <=1.2 mg/dL 2020 11:04 AM [facility] SGOT (AST) 24 <=32 U/L 2020 11:04 AM [facility] SGPT (ALT) 24 <=41 U/L 2020 11:04 AM [facility] ALKALINE PHOSPHATASE 100 35 - 105 U/L 2020 11:04 AM [facility] GFR, EST. NONAFRICAN >60 >=60 2020 11:04 AM [facility] GFR, EST. >60 >=60 021 11:04 AM [facility] Comment: Creatinine Clearance is the preferred criteria for selecting drug dose adjustments in renally impaired patients. The GFR is provided as additional pertinent clinical information. GFR is reported in mL/min/1.73 sq m. IS THE PATIENT REQUIRED TO BE FASTING? No 2020 11:04 AM [facility] Blood Venipuncture / Unknown 2020 9:30 AM CDT 2020 10:28 AM CDT Marcus Shannon MD CHEMISTRY ORDERABLES Final Result Performing Organization Address City/State/ZIP Sd de Phone Number [facility] [address] [place] [address] * HEPATITIS PANEL ACUTE (AHP) (02/19/2018 4:29 PM RACE RELATIONS ADVISER) HEPATITIS A IGM ANTIBODY NON DETECTED NON DETECTED 02/19/2018 10:40 PM RACE RELATIONS ADVISER [facility] Comment: IGM Antibodies to HAV not detected. Does not exclude early acute or recovered HAV infection. HEP B CORE AB (IGM) NON DETECTED NON DETECTED 02/19/2018 10:40 PM RACE RELATIONS ADVISER [facility] Comment: IGM anti-HBC not detected. Does not exclude the possibility of exposure to or infection with HBV. HEPATITIS B SURFACE ANTIGEN NON DETECTED NON DETECTED 02/19/2018 10:40 PM RACE RELATIONS ADVISER [facility] Comment: A nonreactive test result does not exclude the possibility of exposure to or infection with Hepatitis B virus. A nonreactive test result in individuals with prior exposure to hepatitis B may be due to antigen levels below the detection limit of this assay or lack of antigen reactivity to the antibodies in this assay. hepatitis C antibody 0.08 <1 S/CO 02/19/2018 10:40 PM RACE RELATIONS ADVISER [facility] Comment: Signal/Cutoff ratio < 0.79 is Nondetected Signal/Cutoff ratio 0.80-0.99 is Grayzone Signal/Cutoff ratio > 0.99 is Detected Supplemental assays are recommended if signal/cutoff ratio is >/=1.00. Signal/cutoff ratio result >/= 5.00 is 97% predictive of positivity for recombinant immunoblot assay (RIBA) and will be reported to the [place] Department of Public Health as required. Blood specimen (specimen) Venipuncture / Unknown 02/19/2018 4:29 PM RACE RELATIONS ADVISER 02/19/2018 4:37 PM RACE RELATIONS ADVISER Marcus Shannon MD HEMATOLOGY ORDERABLES Final Result [facility] [address] [place] [address], from Last 3 Months or Most Recently Relevant to Health Maintenance Insurance [facility] Care Teams Aquatic Scientist Relationship Specialty Start Date End Date Marcus Shannon MD [address] [address] PCP - General Family Medicine 07/06/16
--- OUTSIDE RECORDS SUMMARY | 2024-04-09 16:52 | XMS_ITS | Encounter Summary ---
Author Organization [facility] Address [address] [place] [address] Phone Care Team Providers Care Business Analysis Analyst Name Role Phone Marcus Shannon MD Primary Care Provider [phone] [phone] Reason for Visit * Reason Comments Medication Refill Encounter Details Date Type Department Care Team (Late st Contact Info) Description 01/16/2023 [facility]ill [facility] [address] [place] [address] Marcus Shannon MD #[address] [address] Medication Refill Social History Tobacco Use Types [...] Telephone Encounter - Nicole Hays RN - 01/17/2023 8:25 AM CST Medication failed the protocol, provider to review and approve the medication order if appropriate. Requested Prescriptions Pending Prescriptions Disp Refills EQ Aspirin Adult Low Dose 81 MG Tablet Delayed Response [Pharmacy Med Name: EQ Aspirin Adult Low Dose 81 MG Oral Tablet Delayed Release] 100 Tablet 1 Sig: Take 1 tablet by mouth once daily Platelet Inhibitors Protocol Failed - 01/16/2023 5:09 PM Failed - CBC on record in the past year WBC Date Value Ref Range Status 05/07/2020 7.76 4.00 - 12.00 10(3)/mcL Final WBC ESTERASE Date Value Ref Range Status 07/07/2016 25 /uL (A) Negative Final WBC MORPH STATUS Date Value Ref Range Status 07/07/2016 Normal Final RBC Date Value Ref Range Status 05/07/2020 4.56 3.80 - 5.30 10(6)/mcL Final RBC MORPHOLOGY CONSISTENT WITH INDICES Date Value Ref Range Status 07/07/2016 Yes Final HEMATOCRIT (HCT) Date Value Ref Range Status 05/07/2020 37.1 36.0 - 47.0 % Final HEMOGLOBIN (HGB) Date Value Ref Range Status 05/07/2020 12.0 12.0 - 15.8 g/dL Final MCV Date Value Ref Range Status 05/07/2020 81.4 (L) 82.0 - 96.0 fL Final MCH Date Value Ref Range Status 05/07/2020 26.3 26.0 - 34.0 pg Final MCHC Date Value Ref Range Status 05/07/2020 32.3 31.0 - 36.0 g/dL Final Passed - Visit with relevant provider in past year or upcoming 90 days Recent Visits Date Type Provider Dept 06/15/22 Office Visit Paul Russ APRN, [facility] 03/02/22 Office Visit Marcus Shannon MD [facility] Showing recent visits within past 365 days and meeting all other requirements Future Appointments No visits were found meeting these conditions. Showing future appointments within next 90 days and meeting all other requirements ITY CONTROL documented in this encounter Plan of Treatment Upcoming Encounters Date Type Department Care Team (Late st Contact Info) Description 06/05/2024 2:30 PM CDT Office Visit [facility] [address] [place] [address] Marcus Shannon MD #[address] [address] documented as of this encounter Visit Diagnoses Not on filedocumented in this encounter Additional Health Concerns Assessment Noted Time PHQ-9 Depression Total Score: 0 05/08/19 21 9:00 AM CDT documented as of this encounter Care Teams Business Analysis Analyst Relationship Specialty Start Date End Date Marcus Shannon MD #[address] [address] PCP - General Family Medicine 07/06/16 documented as of this encounter
--- OUTSIDE RECORDS SUMMARY | 2024-04-09 16:52 | XMS_ITS | Encounter Summary ---
Author Organization [facility] Address [address] [place] [address] Care Team Providers Care Dog Groomer Name Role Phone Mary Jo Ellis MD Primary Care Provider [phone]- [phone] Encounter Details Date Type Department Care Team (Late st Contact Info) Description 07/15/2019 Lab Requisition [facility] [address] [place] [address] Gerardo Bedoya MD Social History Tobacco Use Types Packs/Day Years Used Date Smoking Tobacco: Never Assessed Sex and Gender Information Value Date Recorded Sex Assigned at Not on file Gender Identity Not on file Sexual Orientation Not on file documented as of this encounter Plan of Treatment Not on file documented as of this encounter Procedures Procedure Name Priority Date/Time Associated Diagnosis Comments SARS-COV-2 (COVID-19) IN HOUSE Routine 07/15/2019 8:30 AM CDT documented in this encounter Results * SARS-COV-2 (COVID-19) IN HOUSE (07/15/2019 8:30 AM CDT) COVID-19 PCR Not detected Not detected, Invalid 07/15/2019 11:24 PM CDT [facility] Microbiology SPECIMEN FROM NASOPHARYNGEAL STRUCTURE / Unknown Collection / Unknown 07/15/2019 8:30 AM CDT 07/15/2019 3:27 PM CDT Narrative [facility] - 07/15/2019 11:24 PM CDT This Real Time RT-PCR assay was developed and its performance characteristics determined by [facility]. This test has been authorized [...] Gerardo Bedoya MD LAB - MICROBIOLOGY ORDERABLES [facility] [address] [place] [address], [facility] [phone] documented in this encounter Visit Diagnoses Not on filedocumented in this encounter Additional Health Concerns Infection Onset Date Last Indicated Resolved Time COVID-19 Under Investigation 07/15/2019 07/15/2019 07/15/2019 11:24 PM CDT COVID-19 Under Investigation 08/22/2019 08/20/2019 08/22/2019 10:10 PM CDT documented as of this encounter Care Teams Dog Groomer Relationship Specialty Start Date End Date Mary Jo Ellis MD [facility] [place] [address] PCP - General 03/06/18 documented as of this encounter
--- OUTSIDE RECORDS SUMMARY | 2024-04-09 16:52 | XMS_ITS | Encounter Summary ---
Author Organization [facility] Address [address] [place] [address] Phone Care Team Providers Care Regular Senior Care Provider Name Role Phone Marcus Shannon MD Primary Care Provider [phone] [phone] Reason for Visit * Reason Comments Medication Refill Encounter Details Date Type Department Care Team (Late st Contact Info) Description 04/25/2020 Refill [facility] [address] [place] [address] Marcus Shannon MD [address] [address] Medication Refill Social History Tobacco Use Types Packs/Day Years Used Date Smoking Tobacco: Never Smokeless Tobacco: Never Alcohol Use Standard Drinks/Week Comments Yes 0 (1 standard drink = 0.6 oz pur e alcohol) occasionally PHQ-2 Answer Date Recorded PHQ-2 Score 0 10/10/2018 Sexually Active Control Partners Comments Not Currently Comments No Sex and Gender Information Value Date Recorded Sex Assigned at Not on file Legal Sex Female 12:46 PM CDT Gender Identity Not on file Sexual Orientation Not on file COVID-19 Exposure Response Date Recorded In the last month, have you been in contact with someone who was confirmed or suspected to have Coronavirus / COVID-19? No / Unsure 04/13/2020 12:40 PM ASSOCIATE SALES documented as of this encounter Miscellaneous Notes * Telephone Encounter - Vicky Juan RN - 04/26/2020 10:01 AM CDT Medication failed the protocol, provider to review and approve the medication order if appropriate. Requested Prescriptions Pending Prescriptions Disp Refills metoprolol Succinate (TOPROL-XL) 50 MG TABLET SR 24 HR [Pharmacy Med Name: Metoprolol Succinate ER 50 MG Oral Tablet Extended Release 24 Hour] 30 Tablet 0 Sig: Take 1 tablet by mouth once daily Cardiovascular: Beta Blockers Failed - 04/25/2020 3:32 PM Failed - Valid encounter within last 12 months Past Office Visits Recent Outpatient Visits 1 year ago Essential hypertension [facility] Marcus Maher MD 1 year ago Hyperglycemia [facility] Marcus Maher MD 2 years ago Essential hypertension [facility] Marcus Maher MD 3 years ago Non morbid obesity, unspecified obesity type [facility] Marcus Maher MD Upcoming Appointments Future Appointments In 1 week Marcus Shannon MD [facility] - Recent and Past Visits Recent Visits No visits were found meeting these conditions. Showing recent visits within past 460 days with a meds authorizing provider and meeting all other requirements Future Appointments Date Type Provider Dept 05/07/20 Appointment Marcus Shannon MD [facility] Showing future appointments within next 90 days with a meds authorizing provider and meeting all other requirements Passed - Last BP in normal range BP Readings from Last 1 Encounters: 07/18/19 92/78 documented in this encounter Plan of Treatment Upcoming Encounters Date Type Department Care Team (Late st Contact Info) Description 06/05/2024 2:30 PM CDT Office [facility] [place] [address] Marcus Shannon MD #[address] [address] documented as of this encounter Visit Diagnoses Not on filedocumented in this encounter Additional Health Concerns Assessment Noted Time PHQ-9 Depression Total Score: 0 02/19/19 19 3:00 PM ASSOCIATE SALES documented as of this encounter Care Teams Regular Senior Care Provider Relationship Specialty Start Date End Date Marcus Shannon MD [address] [address] PCP - General Family Medicine 07/06/16 documented as of this encounter
--- OUTSIDE RECORDS SUMMARY | 2024-04-09 16:52 | XMS_ITS | Encounter Summary ---
Author Organization [facility] Address [address] [place] [address] Care Team Providers Care Wine Manager Name Role Phone Mary Jo Ellis MD Primary Care Provider [phone]- [phone] Encounter Details Date Type Department Care Team (Late st Contact Info) Description 08/22/2019 Lab Requisition [facility] [address] [place] [address] Gerardo Bedoya MD Social History Tobacco Use [...] Diagnosis Comments SARS-COV-2 (COVID-19) IN HOUSE Routine 08/20/2019 8:00 AM CDT documented in this encounter Results * SARS-COV-2 (COVID-19) IN HOUSE (08/20/2019 8:00 AM CDT) COVID-19 PCR Not detected Not detected, Invalid 08/22/2019 10:10 PM CDT [facility] Microbiology SPECIMEN FROM NASOPHARYNGEAL STRUCTURE / Unknown Collection / Unknown 08/20/2019 8:00 AM CDT 08/22/2019 11:01 AM CDT Narrative [facility] - 08/22/2019 10:10 PM CDT This Real Time RT-PCR assay was developed and its performance characteristics determined by [facility]. This test has been authorized [...] Gerardo Bedoya MD LAB - MICROBIOLOGY ORDERABLES [facility] [address] [place] [address] [phone] documented in this encounter Visit Diagnoses Not on filedocumented in this encounter Additional Health Concerns Infection Onset Date Last Indicated Resolved Time COVID-19 Under Investigation 08/22/2019 08/20/2019 08/22/2019 10:10 PM CDT documented as of this encounter Care Teams Wine Manager Relationship Specialty Start Date End Date Mary Jo Ellis MD [facility] [place], [place] [id number] PCP - General 03/06/18 documented as of this encounter
--- OUTSIDE RECORDS SUMMARY | 2024-04-09 16:52 | XMS_ITS | Encounter Summary ---
Author Organization [facility] Address [address] [place] [address] Phone Care Team Providers Care Livestock Farmworker Name Role Phone Marcus Shannon MD Primary Care Provider [phone] [phone] Reason for Visit * Reason Comments Medication Refill Encounter Details Date Type Department Care Team (Late st Contact Info) Description 02/20/2020 Refill [facility] [address] [place], [place] [id number] Marcus Shannon MD [address] [address] Medication Refill Social History Tobacco Use Types [...] encounter Miscellaneous Notes * Telephone Encounter - Edita Ravi CMA - 02/23/2020 8:23 AM CST Dime message was sent to patient. PROGRAM ENGAGEMENT DIRECTOR * Telephone Encounter - Nicole Hays RN - 02/20/2020 1:07 PM CST Patient needs appointment. PROGRAM ENGAGEMENT DIRECTOR documented in this encounter Plan of Treatment Upcoming Encounters Date Type Department Care Team (Late st Contact Info) Description 06/05/2024 2:30 PM CDT Office Visit [facility] [address] [place] [address] Marcus Shannon MD [address] [address] documented as of this encounter Visit Diagnoses Not on filedocumented in this encounter Additional Health Concerns Assessment Noted Time PHQ-9 Depression Total Score: 0 02/19/19 19 3:00 PM IT PROGRAM ENGAGEMENT DIRECTOR documented as of this encounter Care Teams Livestock Farmworker Relationship Specialty Start Date End Date Marcus Shannon MD [address] [address] PCP - General Family Medicine 07/06/16 documented as of this encounter
--- OUTSIDE RECORDS SUMMARY | 2024-04-09 16:52 | XMS_ITS | Encounter Summary ---
Author Organization [facility] Address [address] [place] [address] Phone Care Team Providers Care Industrial Trainer Name Role Phone Marcus Shannon MD Primary Care Provider [phone] Reason for Visit * Reason Comments Medication Refill Encounter Details Date Type Department Care Team (Late st Contact Info) Description 05/16/2023 Refill [facility] #2 [place] [address] Marcus Shannon MD [address] [address] Medication Refill Social History Tobacco Use Types [...] Telephone Encounter - Nicole Hays RN - 05/16/2023 10:58 AM CDT Medication failed the protocol, provider to review and approve the medication order if appropriate. Requested Prescriptions Pending Prescriptions Disp Refills metFORMIN (GLUCOPHAGE) 500 MG Tablet [Pharmacy Med Name: metFORMIN HCl 500 MG Oral Tablet] 60 Tablet 5 Sig: TAKE 1 TABLET BY MOUTH TWICE DAILY WITH MEALS Biguanides Protocol Failed - 05/16/2023 6:50 AM Failed - HgA1C on record in [...] Dept 04/19/23 Office Visit Marcus Shannon MD [facility] Showing recent visits within past 182 days and meeting all other requirements Future Appointments Date Type Provider Dept 08/02/23 Appointment Marcus Shannon MD [facility] Showing future appointments within next 90 days and meeting all other requirements documented in this encounter Plan of Treatment Upcoming Encounters Date Type Department Care Team (Late st Contact Info) Description 06/05/2024 2:30 PM CDT [facility] [place] [address] [place] [address] Marcus Shannon MD [address] [address] documented as of this encounter Visit Diagnoses Not on filedocumented in this encounter Additional Health Concerns Assessment Noted Time PHQ-9 Depression Total Score: 0 05/08/19 21 9:00 AM CDT documented as of this encounter Care Teams Industrial Trainer Relationship Specialty Start Date End Date Marcus Shannon MD [address] [address] PCP - General Family Medicine 07/06/16 documented as of this encounter
--- OUTSIDE RECORDS SUMMARY | 2024-04-09 16:52 | XMS_ITS | Clinical Summary ---
Author Organization [facility] Address [address] [place] [address] Care Team Providers Care Warp Picker Name Role Phone Mary Jo Ellis MD Primary Care Provider [phone]- [phone] Source Comments [facility],non-owned Affiliates and Associated Physician Practices is amultiple site organization consisting of ambulatory clinics and hospital sitesin [place], [place], [place] and [place]. This disclosure is being madepursuant to the Care Everywhere program and may not contain all information available regarding this patient. Last updated 17.[facility] Prezi Social History Tobacco Use Types Packs/Day Years Used Date Smoking Tobacco: Never Assessed Sex and Gender Information Value Date Recorded Sex Assigned at Not on file Gender Identity Not on file Sexual Orientation Not on file Plan of Treatment Health Maintenance Due Date Last Done Comments COLOGUARD (AGES 45-75) - COL ON CA SCREENING 1964 COLON MONITORING 1964 COLONOSCOPY - COLON CA SCREENING 1964 CT COLONOGRAPHY - COLON CA SCREENING 1964 Colorectal Cancer Screening 1964 FIT - COLON CA SCREENING 1964 FLEX SIG - COLON CA SCREENING 1964 LIPID TESTING 1964 PAP SMEAR 1964 HIV SCREENING 11/09/1979 HEPATITIS C SCREENING 11/04/1982 DTAP/TDAP/TD VACCINES (1 - Tdap) 11/09/1983 HEPATITIS B VACCINE (1 of 3 - 19+ 3-dose series) 11/09/1983 PNEUMOCOCCAL VACCINE 50+ (1 of 1 - PCV) 2014 ZOSTER VACCINE (1 of 2) 2014 MAMMOGRAM 09/11/2015 09/10/2013 COVID-19 VACCINE (2023-2 5 season) 2023 INFLUENZA VACCINE (#1) 2023 DEPRESSION SCREENING 02/06/2024 HIB VACCINE Aged Out No longer eligi ble based on patient's age to complete this topic HPV VACCINE Aged Out No longer eligi ble based on patient's age to complete this topic MENINGOCOCCAL (Group B) VACCINE Aged Out No longer eligible based on patient's age to complete this topic MENINGOCOCCAL VACCINE Aged Out No richar ashlie eligible based on patient's age to complete this topic PNEUMOCOCCAL VACCINE Aged Out No long er eligible based on patient's age to complete [...] Digital screening mammogram on 09/10/2013. PRIOR: 2012 [facility] now available FINDINGS: Computer assisted detection was utilized. The tissue density is predominantly fatty. There is no significant change since the prior mammogram. ASSESSMENT: BIRADS Category 1: Negative mammogram. RECOMMENDATION: Follow up in one year. Thank you for allowing us to participate in the care of your patient. [facility] Breast Care utilizes Bal[employer] as a reminder system to notify patients of their next recommended mammogram. Lauren Jacobson MD MAMMO ORDERABLES from Last 3 Months or Most Recently Relevant to Health Maintenance Care Teams Warp Picker Relationship Specialty Start Date End Date Mary Jo Ellis MD [address] [place] [address] PCP - General 03/06/18
[2024-04-09 18:22] LABS: Basophils Absolute Auto 0.1 K/mm3 (0.0-0.1); Basophils Percent Auto 0.7 % (0.2-1.2); Eosinophils Absolute Auto 0.2 K/mm3 (0-0.3); Eosinophils Percent Auto 1.7 % (0-4.4); Hematocrit 35.4 % (37.0-47.0); Hemoglobin 11.7 g/dL (12.0-15.0); Immature Granulocyte Absolute 0.02 K/mm3 (0.00-0.031); Immature Granulocyte Percent A 0.2 % (0-0.5); Lymphocytes Absolute Auto 4.14 K/mm3 (0.9-3.2); Lymphocytes Percent Auto 41.4 % (18.3-44.2); Mean Corpuscular HGB Conc 33.1 g/dl (32-36); Mean Corpuscular Hemoglobin 25.8 pg (26-34); Mean Platelet Volume 12.1 fl (7.4-10.4); Monocytes Absolute Auto 0.6 K/mm3 (0.1-0.6); Monocytes Percent Auto 5.5 % (2.6-8.5); Neutrophils Absolute Auto 5.1 K/mm3 (1.3-6.7); Neutrophils Percent Auto 50.5 % (45.5-73.1); Platelet Count Result 227 k/mm3 (150-375); Red Blood Count 4.54 M/mm3 (4.2-5.4); Red Cell Distribution Width 15.2 % (11.5-14.5)
[2024-04-09 18:38] LABS: Alanine Aminotransferase 26 U/L (6-35); Albumin Level 4.5 g/dL (3.5-5.1); Alkaline Phosphatase 133 U/L (38-126); Anion Gap 13 mmol/L (4-12); Aspartate Amino Transferase 30 U/L (14-36); Bilirubin,Total 0.6 mg/dL (0.2-1.3); Blood Urea Nitrogen 16 mg/dL (7-17); Calcium 10.1 mg/dL (8.4-10.2); Carbon Dioxide 29 mmol/L (22-30); Chloride 98 mmol/L (98-107); Cholesterol 174 mg/dL (0-200); Estimated Glomerular Filt Rate > 60; Glucose 103 mg/dL (65-110); HDL Direct 56 mg/dL; Potassium 3.9 mmol/L (3.4-5.0); Sodium 140 mmol/L (137-145); Triglycerides 72 mg/dL (<150)
[2024-04-09 18:46] LABS: Vitamin D 25 Hydroxy 53.3 ng/mL
[2024-04-09 18:49] LABS: LDL Cholesterol Direct 83 mg/dL
[2024-04-09 18:51] LABS: Creatinine Urine 89.4 mg/dL
[2024-04-09 18:55] LABS: Microalbumin Urine Random 35.8 mg/L (0-16.7)
[2024-04-09 19:06] LABS: Hemoglobin A1C 7.9 % (<5.7)
[2024-04-10 09:21] LABS: Iron 72 ug/dL (37-170)
[2024-04-10 09:30] LABS: Percent Iron Saturation 19 % (20-50)
[2024-04-10 10:29] LABS: Folic Acid > 20.0 ng/mL (2.76->20)
== END 2024-04-09 15:05 | disposition home or self-care (01) ==
LOC: ANHGOSHLAB 15:05
PROVIDERS: Family Medicine; PCP Nurse Practitioner Family; Visit Provider Nurse Practitioner Family
DX: E78.5 Hyperlipidemia, unspecified (principal); I10 Essential (primary) hypertension; E55.9 Vitamin D deficiency, unspecified; E11.9 Type 2 diabetes mellitus without complications; D64.9 Anemia, unspecified
CPT/HCPCS: 36415; 80053; 80061; 82043; 82306; 82607; 82728; 82746; 83036; 83540; 83550; 84443; 85025

== ENCOUNTER 2024-05-23 15:20 | Outpatient (CLI) | payer BC, SELFPAY ==
--- NOTE | ~2024-05-23 | US_ITS ---
US thyroid INDICATION: Nontoxic goiter TECHNIQUE: Real-time sonographic images of the thyroid gland were obtained. COMPARISON: No prior studies for comparison. FINDINGS: The right thyroid lobe measures 3.1 x 0.9 times centimeters. The left thyroid lobe measure s 3.2 x 1 x 1.1 m. There is normal echotexture and echogenicity throughout the thyroid gland. No disc rete nodules identified. Normal vascular flow is present. IMPRESSION: 1. Normal thyroid without discrete nodule or abnormal vascularity. Reviewed, dictated and finalized at location A.
== END 2024-05-23 15:21 | disposition home or self-care (01) ==
LOC: MICIMG 15:20
PROVIDERS: PCP Nurse Practitioner Family; Visit Provider Nurse Practitioner Family
DX: E04.9 Nontoxic goiter, unspecified (principal)
CPT/HCPCS: 76536

== ENCOUNTER 2024-10-03 07:41 | Outpatient (CLI) | payer BC, SELFPAY ==
--- OUTSIDE RECORDS SUMMARY | 2000-11-09 19:00 | XMS_ITS | Continuity of Care Document ---
Author Organization [facility] Address [address] [place] [address] Phone Care Team Providers Care Hot Press Operator Name Role Phone Tom OD, Bert Unavailable Unavailable Advance Directives Directive Yes / No Effective Date File Name No Information Encounters Encounter Description Practice Location Reason(s) For Visit Diagnoses Date Provider Providers Copied on Encounter [facility], [address], [place], [place], [id number], [place] tel:[phone] SEC [facility] No Information Oct-0 6-200 1 Tom OD Bert. [address] , [address], [place], [address], [place]. tel:[phone] Family History Family Member Type Diagnosis Age At Onset No Information Payers Payer name Insurance type Covered libertarian ID Authoriza tion(s) No Information Social History [...]
--- NOTE | ~2024-10-03 | MM_ITS ---
EXAMINATION: MM screening brodie BI w bryson HISTORY: Screening TECHNIQUE: Craniocaudal and mediolateral oblique 3-D tomosynthesis images were obtained and synthetic 2-D images were generated. CAD analysis was submitted and interpreted. COMPARISON: None provided BREAST PARENCHYMAL COMPOSITION: There are scattered areas of fibroglandular density. FINDINGS: There is no evidence of suspicious mass, calcification, or architectural distortion to suggest malignancy in either breast. IMPRESSION: 1. No mammographic evidence of malignancy. 2. Recommend routine screening mammography in one year. BI-RADS Category 1: Negative Reviewed, dictated and finalized at location B.
--- OUTSIDE RECORDS SUMMARY | 2024-10-03 07:50 | XMS_ITS | Encounter Summary ---
Author Organization [facility] Address [address] [place] [address] Phone Care Team Providers Care Assistant Center Director Name Role Phone Provider, None Primary Care Provider Unavailabl e Reason for Visit * Reason Comments Medication Refill Encounter Details Date Type Department Care Team (Late st Contact Info) Description 08/20/2024 Refill [facility] [address]2 [place] [address] Marcus Shannon MD #[address] [address] Medication Refill Social History Tobacco Use Types [...] on file documented as of this encounter Visit Diagnoses Not on filedocumented in this encounter Additional Health Concerns Assessment Noted Time PHQ-9 Depression Total Score: 0 05/08/19 21 9:00 AM CDT documented as of this encounter Care Teams Assistant Center Director Relationship Specialty Start Date End Date Provider, None [place] PCP - General 07/26/24 documented as of this encounter
--- OUTSIDE RECORDS SUMMARY | 2024-10-03 07:50 | XMS_ITS | Encounter Summary ---
Author Organization [facility] Address [address] [place] [address] Phone Care Team Providers Care Process Safety Management Engineer Name Role Phone Marcus Shannon MD Primary Care Provider [phone] Provider, None Primary Care Provider Unavailabl e Reason for Visit * Reason Comments Medication Refill Encounter Details Date Type Department Care Team (Late st Contact Info) Description 06/20/2024 Refill [facility] #2 [place] [address] Marcus Shannon MD #[address] [address] Medication Refill Social History Tobacco Use Types [...] Telephone Encounter - Nicole Hays RN - 06/20/2024 10:23 AM CDT Not seen in over a year - pt has cancelled her last 3 appts - most recent 06/05/24 documented in this encounter Plan of Treatment Not on file documented as of this encounter Visit Diagnoses Not on filedocumented in this encounter Additional Health Concerns Assessment Noted Time PHQ-9 Depression Total Score: 0 05/08/19 21 9:00 AM CDT documented as of this encounter Care Teams Process Safety Management Engineer Relationship Specialty Start Date End Date Marcus Shannon MD #[address] [address] PCP - General Family Medicine 07/06/16 07/25/24 Provider, None [place] PCP - General 07/26/24 documented as of this encounter
--- OUTSIDE RECORDS SUMMARY | 2024-10-03 07:50 | XMS_ITS | Clinical Summary ---
Author Organization [facility] Address [address] [place] [address] Phone Care Team Providers Care Herb Counselor Name Role Phone Provider, None Primary Care Provider Unavailabl e Allergies Active Allergy Reactions Criticality Noted Date Comments Tetracycline Anaphylaxis High 07/06/2016 Cetirizine Hcl Other (see Comments) Low 08/20/2019 Makes her feel funny, disconnected, lightheaded Medications Multiple Vitamin (MULTI-VITAMIN PO) Take by mouth every morning. Active Cholecalciferol (Vitamin D3) 1000 UNIT Tablet Take by mouth. Active famotidine (PEPCID) 20 MG Tablet Take 1 Tablet by mouth 2 times daily. 90 Tablet 3 1 Active pantoprazole (PROTONIX) 40 MG Tablet Delayed ResponseIndicati ons:Gastroesopha geal reflux disease, unspecified whether esophagitis present Take 1 Tablet by mouth daily. 30 Tablet 2 3 Active Additional Information Patient not taking.Reported on 04/19/2023 EQ Aspirin Adult Low Dose 81 MG Tablet Delayed Response Take 1 tablet by mouth once daily 100 Tablet 1 4 Active probiotic (VSL#3) Pack 1 Packet by Per NG tube route daily. Active [place]-3 Fatty Acids (FISH OIL PO) Take by mouth. Activ e fluticasone (FLONASE) 50 MCG/ACT Suspension 1 [place] by Nasal route daily. Use in each nostril as directed. 18.2 mL 4 Active atorvastatin (LIPITOR) 10 MG Tablet Take 1 tablet by mouth once daily 90 Tablet 5 Active metFORMIN (GLUCOPHAGE) 500 MG Tablet TAKE 1 TABLET BY MOUTH TWICE DAILY WITH MEALS 60 Tablet 5 Active metoprolol Succinate (TOPROL-XL) 50 MG TABLET SR 24 HR Take 1 tablet by mouth once daily 30 Tablet 5 Active Active Problems Problem Noted Date Diagnosed Date [...] Encounters Date Type Department Care Team Description 08/20/2024 Refill [facility]2 [place] [phone] Marcus Shannon MD Medication Refill 08/01/2024 Refill [facility] [place] [address] Marcus Shannon MD Medication Refill 07/26/2024 Telephone [facility] [address] [place] [place] [address] Marcus Shannon MD Appointment 07/24/2024 Refill [facility] #2 [place] [address] Marcus Shannon MD Medication Refill from Last 3 Months Immunizations Immunization Administration Dates Next Due Covid-19, Mrna, Lnp-s, Pf, 3 0 Mcg/0.3 Ml Dose ([employer]) 05/07/2020,04/16/2020 Influenza Vaccine greater than 3 yrs [...] 4:08 PM CDT Height 172.7 cm (5' 8) 04/19/2023 4:08 PM CDT Body Mass Index 36.95 04/19/2023 4:08 PM CDT Plan of Treatment Health Maintenance Due Date Last Done Comments Diabetes: Eye Exam 1965 Diabetes: Foot Exam 1964 TdaP Immunization 1964 Hepatitis B Immunization (1 of 3 - 19+ 3-dose series) 11/09/1983 Pneumococcal Immunization (50+ years) (1 of 2 - PCV) 11/09/1983 Cologuard 2009 Immunochemical Fecal Occult Blood 2009 Zoster Immunization (1 of 2) 2014 Diabetes: Nephropathy Screening 2021 2020, 05/07/2020, 07/07/2016 Diabetes: Hemoglobin A1c 08/30/2022 023, 09/15/2021, 2020, Additional history exists Mammogram 07/05/2024 07/06/2023, 02/06, 11/30/2020, Additional history exists Colonoscopy 07/17/2024 07/18/2019 Colorectal Cancer Screening 07/17/2024 Influenza Immunization (#1) 10/06/202411/05, 01/05/2022, 01/05/2022, Additional history exists Respiratory Syncytial Virus (RSV) Immunization (Adult) (1 - 1-dose 75+ series) 11/09/2039 DTaP/Tdap/Td Immunization Discontinued 11/16/2008 Hepatitis C Virus (HCV) Screening Completed 02/19/2018 SARS-COV-2 Immunization Completed 11/23/19 24, 04/21/2023, 01/21/2021, Additional history exists Human Papillomavirus (HPV) Immunization Aged Out No longer eligible based on patient's age to complete this topic Meningococcal Immunization (ACWY) Aged Out No longer eligible based on patient's age to complete this topic Rotavirus Immunization Aged Out No lo nger eligible based on patient's age to complete this topic Procedures Procedure Name Priority Date/Time Associated Diagnosis Comments MIRANDA SCREENING BILATERAL DIGITAL W CAD W SURESH Routine 07/06/2023 12:26 PM CDT Visit for screening mammogram HEMOGLOBIN A1C W/ ESTIMATED GLUCOSE Routine 03/02/2022 3:32 PM CIVIL ENGINEER HELPER Type 2 diabetes mellitus treated without insulin (HCC) CMP (COMPREHENSIVE METABOLIC PANEL) Routine 2020 9:30 AM CDT Hyperlipidemia, unspecified hyperlipidemia type HEPATITIS PANEL ACUTE (AHP) Routine 02/19/2018 4:29 PM CIVIL ENGINEER HELPER Elevated liver enzymes from Last 3 Months [...] copy. Current study was also evaluated with [employer] version 7.2. 2D digital mammographic views, as well as 3D digital tomosynthesis were performed in the CC and MLO projections. CLINICAL: Routine screening. Patient has no complaints. No personal history of cancer. No family history of breast cancer. COMPARISONS: Comparison is made to exams dated: 03/02/2022, 11/30/2020, and 12/03/2019 [facility]. BREAST TISSUE:There are scattered fibroglandular densities in [...] next screening exam. Electronically signed by: Morgan giordano/uma:07/06/2023 16:07:11 Checking Department Supervisor(s): RT Thalia(R)(M), [facility] letter sent: Normal Exam Reading location: [facility] BI-RADS: 1 Negative Procedure Note Morgan Cain [...] to exams dated: 03/02/2022, 11/30/2020, and 12/03/2019 [facility]. BREAST TISSUE:There are scattered fibroglandular densities in [...] next screening exam. Electronically signed by: Morgan giordano/uma:07/06/2023 16:07:11 Checking Department Supervisor(s): RT Thalia(R)(M), [facility] letter sent: Normal Exam Reading location: [facility] BI-RADS: 1 Negative [facility] Dc Shannon MD IMG MAMMO ORDERABLES Nataliia l Result * (ABNORMAL) HEMOGLOBIN A1C W/ ESTIMATED GLUCOSE (03/02/2022 3:32 PM CIVIL ENGINEER HELPER) HGB-A1C 6.3(H) 4.0 - 6.0 % 03/02/2022 4:18 PM CIVIL ENGINEER HELPER [facility] Est Average Glucose 134.1 mg/dL 03/02/2022 4:18 PM CIVIL ENGINEER HELPER [facility] Blood Venipuncture / Unknown 03/02/2022 3:32 PM CIVIL ENGINEER HELPER 03/02/2022 3:32 PM CIVIL ENGINEER HELPER Narrative [facility] - 03/02/2022 4:18 PM CIVIL ENGINEER HELPER HEMOGLOBIN A1C: DIABETIC PATIENTS: WELL-CONTROLLED: 6.2 - 7.0 INTERMEDIATE WELL-CONTROLLED: 7.0 - 9.0 POORLY-CONTROLLED: >9.0 Marcus Shannon MD CHEMISTRY ORDERABLES Nataliia matos Result [facility] [address] [place] [address] * (ABNORMAL) CMP (COMPREHENSIVE METABOLIC PANEL) (2020 9:30 AM CDT) SODIUM 138 136 - 144 mmol/L 2020 11:04 AM CDT [facility] POTASSIUM 4.1 3.5 - 5.1 mmol/L 2020 11:04 AM CDT [facility] CHLORIDE 101 100 - 110 mmol/L 2020 11:04 AM CDT [facility] CO2, VENOUS 27 22 - 32 mmol/L 2020 11:04 AM CDT [facility] ANION GAP 14.1 8.0 - 20.0 mmol/L 2020 11:04 AM CDT [facility] GLUCOSE 117(H) 70 - 99 mg/dL 2020 11:04 AM CDT [facility] BUN 13 6 - 20 mg/dL 2020 11:04 AM CDT [facility] CREATININE, BLOOD 0.86 0.60 - 1.10 mg/dL 2020 11:04 AM CDT [facility] BUN/CREATININE RATIO 15 12 - 20 ratio 2020 11:04 AM CDT [facility] TOTAL PROTEIN 7.8 6.0 - 8.3 g/dL 2020 11:04 AM CDT [facility] ALBUMIN 4.4 3.5 - 5.2 g/dL 2020 11:04 AM CDT [facility] Comment: The colormetric methods used for the determination of Albumin may lead to falsely elevated test results in patients suffering from renal failure or insufficiency due to interference with other proteins. A/G RATIO 1.3 1.0 - 2.0 2020 11:04 AM CDT [facility] CALCIUM 9.4 8.9 - 10.3 mg/dL 2020 11:04 AM CDT [facility] T BILI 0.4 <=1.2 mg/dL 2020 11:04 AM CDT [facility] SGOT (AST) 24 <=32 U/L 2020 11:04 AM CDT [facility] SGPT (ALT) 24 <=41 U/L 2020 11:04 AM CDT [facility] ALKALINE PHOSPHATASE 100 35 - 105 U/L 2020 11:04 AM CDT [facility] GFR, EST. NONAFRICAN >60 >=60 2020 11:04 AM CDT [facility] GFR, EST. >60 >=60 021 11:04 AM CDT [facility] Comment: Creatinine Clearance is the preferred criteria for selecting drug dose adjustments in renally impaired patients. The GFR is provided as additional pertinent clinical information. GFR is reported in mL/min/1.73 sq m. IS THE PATIENT REQUIRED TO BE FASTING? No 2020 11:04 AM CDT [facility] Blood Venipuncture / Unknown 2020 9:30 AM CDT 2020 10:28 AM CDT us Marcus Shannon MD CHEMISTRY ORDERABLES Nataliia matos Result [facility] [address] [place] [address] * HEPATITIS PANEL ACUTE (AHP) (02/19/2018 4:29 PM CIVIL ENGINEER HELPER) HEPATITIS A IGM ANTIBODY NON DETECTED NON DETECTED 02/19/2018 10:40 PM CIVIL ENGINEER HELPER [facility] Comment: IGM Antibodies to HAV not detected. Does not exclude early acute or recovered HAV infection. HEP B CORE AB (IGM) NON DETECTED NON DETECTED 02/19/2018 10:40 PM CIVIL ENGINEER HELPER [facility] Comment: IGM anti-HBC not detected. Does not exclude the possibility of exposure to or infection with HBV. HEPATITIS B SURFACE ANTIGEN NON DETECTED NON DETECTED 02/19/2018 10:40 PM CIVIL ENGINEER HELPER [facility] Comment: A nonreactive test result does not [...] antibody 0.08 <1 S/CO 02/19/2018 10:40 PM CIVIL ENGINEER HELPER [facility] Comment: Signal/Cutoff ratio < 0.79 is Nondetected Signal/Cutoff ratio 0.80-0.99 is Grayzone Signal/Cutoff ratio > 0.99 is Detected Supplemental assays are recommended if signal/cutoff ratio is >/=1.00. Signal/cutoff ratio result >/= 5.00 is 97% predictive of positivity for recombinant immunoblot assay (RIBA) and will be reported to the [place] Department of Public Health as required. Blood specimen (specimen) Venipuncture / Unknown 02/19/2018 4:29 PM CIVIL ENGINEER HELPER 02/19/2018 4:37 PM CIVIL ENGINEER HELPER us Marcus Shannon MD HEMATOLOGY ORDERABLES Fin al Result [facility] [address] [place] [address], from Last 3 Months or Most Recently Relevant to Health Maintenance Insurance [facility] Care Teams Herb Counselor Relationship Specialty Start Date End Date Provider, None [place] PCP - General 07/26/24
--- OUTSIDE RECORDS SUMMARY | 2024-10-03 07:50 | XMS_ITS | Encounter Summary ---
Author Organization [facility] Address [address] [place] [address] Phone Care Team Providers Care Foxing Closer Name Role Phone Marcus Shannon MD Primary Care Provider [phone] Provider, None Primary Care Provider Unavailabl e Reason for Visit * Reason Comments Medication Refill Encounter Details Date Type Department Care Team (Late st Contact Info) Description 03/02/2023 Refill [facility] #2 [place] [address] Marcus Shannon MD #[address] [address] Medication Refill Social History Tobacco Use Types [...] Payton Saeed RMA - 03/06/2023 1:44 PM CHEMICAL LABORATORY TECHNICIAN scheduled ICAL LABORATORY TECHNICIAN * Telephone Encounter - Nicole Hays RN - 03/02/2023 3:05 PM CST Needs OV with PCP ICAL LABORATORY TECHNICIAN * Telephone Encounter - Nicole Hays RN [...] 6 months No results found for: GFRA ICAL LABORATORY TECHNICIAN documented in this encounter Plan of Treatment Not on file documented as of this encounter Visit Diagnoses Not on filedocumented in this encounter Additional Health Concerns Assessment Noted Time PHQ-9 Depression Total Score: 0 05/08/19 21 9:00 AM CDT documented as of this encounter Care Teams Foxing Closer Relationship Specialty Start Date End Date Marcus Shannon MD [address] [place] [id number] PCP - General Family Medicine 07/06/16 07/25/24 Provider, None [place] PCP - General 07/26/24 documented as of this encounter
--- OUTSIDE RECORDS SUMMARY | 2024-10-03 07:50 | XMS_ITS | Encounter Summary ---
Author Organization [facility] Address [address] [place] [address] Phone Care Team Providers Care Member Of Congress Name Role Phone Marcus Shannon MD Primary Care Provider +1 -[phone] Provider, None Primary Care Provider Unavailabl e Reason for Visit * Reason Comments Medication Refill Encounter Details Date Type Department Care Team (Late st Contact Info) Description 05/16/2023 Refill [facility] #2 [place] [address] Marcus Shannon MD [address] [address] Medication Refill Social History Tobacco Use Types [...] documented as of this encounter Care Teams Member Of Congress Relationship Specialty Start Date End Date Marcus Shannon MD #[address] [address] PCP - General Family Medicine 07/06/16 07/25/24 Provider, None [place] PCP - General 07/26/24 documented as of this encounter
--- OUTSIDE RECORDS SUMMARY | 2024-10-03 07:50 | XMS_ITS | Encounter Summary ---
Author Organization [facility] Address [address] [place] [address] Phone Care Team Providers Care Bookseamer Blindstitch Name Role Phone Marcus Shannon MD Primary Care Provider +1 [phone] Provider, None Primary Care Provider Unavailabl e Reason for Visit * Reason Comments Medication Refill Encounter Details Date Type Department Care Team (Late st Contact Info) Description 04/25/2020 Refill [facility] #2 [place] [id number] Marcus Shannon MD #[address] [address] Medication Refill Social History Tobacco Use Types [...] COVID-19? 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 documented as of this encounter Miscellaneous Notes [...] Outpatient Visits 1 year ago Essential hypertension [facility] Marcus Maher MD 1 year ago Hyperglycemia [facility] Marcus Maher MD 2 years ago Essential hypertension [facility] Marcus Maher MD 3 years ago Non morbid obesity, unspecified obesity type [facility] Marcus Maher MD Upcoming Appointments Future Appointments In 1 week Marcus Shannon MD [facility] - Recent and Past Visits Recent Visits No visits were found meeting these conditions. Showing recent visits within past 460 days with a meds authorizing provider and meeting all other requirements Future Appointments Date Type Provider Dept 05/07/20 Appointment Marcus Shannon MD [facility] Showing future appointments within next 90 [...] Total Score: 0 02/19/19 19 3:00 PM TRUCK DRIVER HEAVY documented as of this encounter Care Teams Bookseamer Blindstitch Relationship Specialty Start Date End Date Marcus Shannon MD [address] [address] PCP - General Family Medicine 07/06/16 07/25/24 Provider, None [place] PCP - General 07/26/24 documented as of this encounter
--- OUTSIDE RECORDS SUMMARY | 2024-10-03 07:50 | XMS_ITS | Encounter Summary ---
Author Organization [facility] Address [address] [place] [address] Phone Care Team Providers Care Physiological Chemist Name Role Phone Marcus Shannon MD Primary Care Provider +1 -[phone] Provider, None Primary Care Provider Unavailabl e Reason for Visit * Reason Comments Medication Refill Encounter Details Date Type Department Care Team (Late st Contact Info) Description 04/05/2023 Refill [facility] #2 [place] [address] Marcus Shannon MD #[address] [address] Medication Refill Social History Tobacco Use Types [...] Provider Dept 04/19/23 Appointment Marcus Shannon MD [facility] Showing future appointments within next 90 days and meeting all other requirements ALTERATIONS SEAMSTRESS documented in this encounter Plan of Treatment Not on file documented as of this encounter Visit Diagnoses Not on filedocumented in this encounter Additional Health Concerns Assessment Noted Time PHQ-9 Depression Total Score: 0 05/08/19 21 9:00 AM CDT documented as of this encounter Care Teams Physiological Chemist Relationship Specialty Start Date End Date Marcus Shannon MD #[address] [address] PCP - General Family Medicine 07/06/16 07/25/24 Provider, None [place] PCP - General 07/26/24 documented as of this encounter
--- OUTSIDE RECORDS SUMMARY | 2024-10-03 07:50 | XMS_ITS | Encounter Summary ---
Author Organization [facility] Address [address] [place] [address] Phone Care Team Providers Care Beef Tagger Name Role Phone Marcus Shannon MD Primary Care Provider +1 [phone] Provider, None Primary Care Provider Unavailabl e Reason for Visit * Reason Comments Medication Refill Encounter Details Date Type Department Care Team (Late st Contact Info) Description 04/21/2023 Refill [facility] #2 [place] [address] Marcus Shannon MD #[address] [address] Medication Refill Social History Tobacco Use Types [...] AM CDT Medication(s) refilled and signed per [facility] Chronic Medication Refill Standing Order for Pediatricand [...] Dept 04/19/23 [facility] Visit [facility]22 Office Visit Paul Russ APRN, WOUND CARE PHYSICIAN [facility] Showing recent visits within past 365 days [...] documented as of this encounter Care Teams Beef Tagger Relationship Specialty Start Date End Date Marcus Shannon MD #[address] [address] PCP - General Family Medicine 07/06/16 07/25/24 Provider, None [place] PCP - General 07/26/24 documented as of this encounter
--- OUTSIDE RECORDS SUMMARY | 2024-10-03 07:50 | XMS_ITS | Encounter Summary ---
Author Organization [facility] Address [address] [place] [address] Phone Care Team Providers Care Sales Order Clerk Name Role Phone Marcus Shannon MD Primary Care Provider +1 [phone] Provider, None Primary Care Provider Unavailabl e Reason for Visit * Reason Comments Medication Refill Encounter Details Date Type Department Care Team (Late st Contact Info) Description 01/16/2023 Refill [facility] #2 [place] [id number] Marcus Shannon MD #[address] [address] Medication Refill Social History Tobacco Use Types [...] Bennett 03/02/22 Office Visit Marcus Shannon MD [facility] Showing recent visits within past 365 days and meeting all other requirements Future Appointments No visits were found meeting these conditions. Showing future appointments within next 90 days and meeting all other requirements L HANDLER documented in this encounter Plan of Treatment Not on file documented as of this encounter Visit Diagnoses Not on filedocumented in this encounter Additional Health Concerns Assessment Noted Time PHQ-9 Depression Total Score: 0 05/08/19 9:00 AM CDT documented as of this encounter Care Teams Sales Order Clerk Relationship Specialty Start Date End Date Marcus Shannon MD #[address] [address] PCP - General Family Medicine 07/06/16 07/25/24 Provider, None [place] PCP - General 07/26/24 documented as of this encounter
--- OUTSIDE RECORDS SUMMARY | 2024-10-03 07:50 | XMS_ITS | Encounter Summary ---
Author Organization [facility] Address [address] [place] [address] Phone Care Team Providers Care Route Returner Name Role Phone Marcus Shannon MD Primary Care Provider +1 [phone] Provider, None Primary Care Provider Unavailabl e Reason for Visit * Reason Comments Medication Refill Encounter Details Date Type Department Care Team (Late st Contact Info) Description 02/20/2020 [facility]ill [facility] [address] [place] [address] Marcus Shannon MD #[address] [address] Medication Refill Social History Tobacco Use Types [...] Ravi CMA - 02/23/2020 8:23 AM CST MyChart message was sent to patient. ER AFTER LASTING * Telephone Encounter - Nicole Hays RN - 02/20/2020 1:07 PM CST Patient needs appointment. ER AFTER LASTING documented in this encounter Plan of Treatment Not on file documented as of this encounter Visit Diagnoses Not on filedocumented in this encounter Additional Health Concerns Assessment Noted Time PHQ-9 Depression Total Score: 0 02/19/19 19 3:00 PM FLAMER AFTER LASTING documented as of this encounter Care Teams Route Returner Relationship Specialty Start Date End Date Marcus Shannon MD #[address] [address] PCP - General Family Medicine 07/06/16 07/25/24 Provider, None [place] PCP - General 07/26/24 documented as of this encounter
--- OUTSIDE RECORDS SUMMARY | 2024-10-03 07:50 | XMS_ITS | Encounter Summary ---
Author Organization [facility] Address [address] [place] [address] Phone Care Team Providers Care Housekeeper Nanny Name Role Phone Provider, None Primary Care Provider Unavailabl e Reason for Visit * Reason Comments Medication Refill Encounter Details Date Type Department Care Team (Late st Contact Info) Description 08/01/2024 Refill [facility] #2 [place] [address] Marcus Shannon MD #[address] [address] Medication Refill Social History Tobacco Use Types [...] documented as of this encounter Care Teams Housekeeper Nanny Relationship Specialty Start Date End Date Provider, None [place] PCP - General 07/26/24 documented as of this encounter
--- OUTSIDE RECORDS SUMMARY | 2024-10-03 07:50 | XMS_ITS | Encounter Summary ---
Author Organization [facility] Address [address] [place] [address] Phone Care Team Providers Care Product Lead Name Role Phone Marcus Shannon MD Primary Care Provider [phone] [phone] Provider, None Primary Care Provider Unavailabl e Reason for Visit * Reason Comments Medication Refill Encounter Details Date Type Department Care Team (Late st Contact Info) Description 07/25/2023 Refill [facility] #2 [place] [address] Marcus Shannon MD #[address] [address] Medication Refill Social History Tobacco Use Types [...] Telephone Encounter - Nicole Hays RN - 07/25/2023 10:58 AM CDT Medication(s) refilled and signed per [facility] Chronic Medication Refill Standing Order for Pediatricand [...] [facility] Showing recent visits within past 365 days [...] documented as of this encounter Care Teams Product Lead Relationship Specialty Start Date End Date Marcus Shannon MD #[address] [address] PCP - General Family Medicine 07/06/16 07/25/24 Provider, Maryan [place] PCP - General 07/26/24 documented as of this encounter
--- OUTSIDE RECORDS SUMMARY | 2024-10-03 07:51 | XMS_ITS | Encounter Summary ---
Author Organization [facility] Address [address] [address] Care Team Providers Care Art Education Professor Name Role Phone Mary Jo Ellis MD Primary Care Provider [phone]- [phone] Encounter Details Date Type Department Care Team (Late st Contact Info) Description 07/15/2019 Lab Requisition [facility] [address] [place] [address] Gerardo Bedoya MD Social History Tobacco Use Types Packs/Day Years Used Date Smoking Tobacco: Never Assessed Comments No Sex and Gender Information Value Date Recorded Sex Assigned at Not on file Legal Sex Female 9:46 AM COGNOS LEAD Gender Identity Not on file Sexual Orientation [...] Not detected, Invalid 07/15/2019 11:24 PM CDT [facility] Microbiology SPECIMEN FROM NASOPHARYNGEAL STRUCTURE / Unknown Collection / Unknown 07/15/2019 8:30 AM CDT 07/15/2019 3:27 PM CDT Narrative [facility] - 07/15/2019 11:24 PM CDT This Real Time RT-PCR assay was developed and its performance characteristics determined by [facility]. This test has been authorized [...] the authorization is terminated or revoked sooner. eGrardo Bedoya MD LAB - MICROBIOLOGY ORDERABL ES Final Result [facility] [address] [place] [address], [facility] [phone] documented in this encounter Visit Diagnoses Not on filedocumented in this encounter Additional Health Concerns Infection Onset Date Last Indicated Resolved Time COVID-19 Under Investigation 07/15/2019 07/15/2019 07/15/2019 11:24 PM CDT COVID-19 Under Investigation 08/22/2019 08/20/2019 08/22/2019 10:10 PM CDT documented as of this encounter Care Teams Art Education Professor Relationship Specialty Start Date End Date Mary Jo Ellis MD [address] [place] [address] PCP - General 03/06/18 documented as of this encounter
--- OUTSIDE RECORDS SUMMARY | 2024-10-03 07:51 | XMS_ITS | Encounter Summary ---
Author Organization [facility] Address [address] [place] [address] Care Team Providers Care Internal Combustion Engine Assembler Name Role Phone Mary Jo Ellis MD Primary Care Provider +1- [phone] Encounter Details Date Type Department Care Team (Late st Contact Info) Description 08/22/2019 Lab Requisition [facility] [address] [place] [address] Gerardo Bedoya MD Social History Tobacco Use Types Packs/Day Years Used Date Smoking Tobacco: Never Assessed Comments No Sex and Gender Information Value Date Recorded Sex Assigned at Not on file Legal Sex Female 9:46 AM MEDICAL ASSISTANT CARDIOLOGY Gender Identity Not on file Sexual Orientation [...] Not detected, Invalid 08/22/2019 10:10 PM CDT [facility]CRO[facility] Microbiology SPECIMEN FROM NASOPHARYNGEAL STRUCTURE / Unknown Collection / Unknown 08/20/2019 8:00 AM CDT 08/22/2019 11:01 AM CDT Narrative [facility]CRO[facility] - 08/22/2019 10:10 PM CDT This Real Time RT-PCR assay was developed and its performance characteristics determined by [facility]. This test has been [...] sooner. Gerardo Bedoya MD LAB - MICROBIOLOGY ORDERABL ES Final Result [facility] [address] [place] [address], [facility] [phone] documented in this encounter Visit Diagnoses Not on filedocumented in this encounter Additional Health Concerns Infection Onset Date Last Indicated Resolved Time COVID-19 Under Investigation 08/22/2019 08/20/2019 08/22/2019 10:10 PM CDT documented as of this encounter Care Teams Internal Combustion Engine Assembler Relationship Specialty Start Date End Date Mary Jo Ellis MD [facility] [facility] [place] [address] PCP - General 03/06/18 documented as of this encounter
--- OUTSIDE RECORDS SUMMARY | 2024-10-03 07:51 | XMS_ITS | Encounter Summary ---
Author Organization [facility] Address [address] [place] [address] Phone Care Team Providers Care Driver Guide Name Role Phone Marcus Shannon MD Primary Care Provider +1 -[phone] Provider, None Primary Care Provider Unavailabl e Reason for Visit * Reason Comments Medication Refill Encounter Details Date Type Department Care Team (Late st Contact Info) Description 08/31/2021 Refill [facility] #2 [place] [address] Marcus Shannon MD #[address] [address] Medication Refill Social History Tobacco Use Types [...] (TOPROL-XL) 50 MG TABLET SR 24 HR [[id number]] 8 Status: Active Mode: Ordering in Standing Orders mode Communicated by: Nicole Hays RN Ordering user: Nicole Hays RN 08/15/21930 Ordering provider: Marcus Shannon MD Authorized by: Marcus Shannon MD Frequency: ??08/15/21 - Until Discontinued Released by: Nicole Hays RN 08/15/[address] documented in this encounter Plan of Treatment Not on file documented as of this encounter Visit Diagnoses Not on filedocumented in this encounter Additional Health Concerns Assessment Noted Time PHQ-9 Depression Total Score: 0 05/08/19 21 9:00 AM CDT documented as of this encounter Care Teams Driver Guide Relationship Specialty Start Date End Date Marcus Shannon MD #[address] [address] PCP - General Family Medicine 07/06/16 07/25/24 Provider, None [place] PCP - General 07/26/24 documented as of this encounter
--- OUTSIDE RECORDS SUMMARY | 2024-10-03 07:51 | XMS_ITS | Clinical Summary ---
Author Organization [facility] Address [address] [facility] [place] [address] Care Team Providers Care Vice President Medical Affairs Name Role Phone Mary Jo Ellis MD Primary Care Provider +1- [phone] Source Comments [facility],non-owned Affiliates and Associated Physician Practices is amultiple site organization consisting of ambulatory clinics and hospital sitesin [place], [place], [place] and [place]. This disclosure is being madepursuant to the Care Everywhere program and may not contain all information available regarding this patient. Last updated 17.[facility] [employer] Social History Tobacco Use Types Packs/Day Years Used Date Smoking Tobacco: Never Assessed Comments No Sex and Gender Information Value Date Recorded Sex Assigned at Not on file Legal Sex Female 9:46 AM PAROLE AGENT Gender Identity Not on file Sexual Orientation [...] COLON CA SCREENING 1964 LIPID TESTING 1964 HIV SCREENING 11/09/1979 HEPATITIS C SCREENING 11/04/1982 DTAP/TDAP/TD VACCINES (1 - Tdap) 11/09/1983 HEPATITIS B VACCINE (1 of 3 - 19+ 3-dose series) 11/09/1983 PNEUMOCOCCAL VACCINE 50+ (1 of 1 - PCV) 2014 ZOSTER VACCINE (1 of 2) 2014 MAMMOGRAM 09/11/2015 09/10/2013 COVID-19 VACCINE (1 - 2023-2 5 season) 2023 DEPRESSION SCREENING 02/06/2024 INFLUENZA VACCINE (#1) 2024 HIB VACCINE Aged Out No longer eligi ble based on patient's age to complete this topic HPV VACCINE Aged Out No longer eligi ble based on patient's age to complete this topic MENINGOCOCCAL (Group B) VACC INE SHARED DECISION-MAKING Aged Out No longer eligibl e based on patient's age to complete this topic MENINGOCOCCAL GROUPS A/C/Y/W VACCINE Aged Out No longer eligible b ased on patient's age to complete this topic [...] screening mammogram on 09/10/2013. PRIOR: 2012 [facility] now available FINDINGS: Computer assisted detection was utilized. The tissue density is predominantly fatty. There is no significant change since the prior mammogram. ASSESSMENT: BIRADS Category 1: Negative mammogram. RECOMMENDATION: Follow up in one year. Thank you for allowing us to participate in the care of your patient. [facility] utilizes [employer] as a reminder system to notify patients of their next recommended mammogram. us Lauren Jacobson MD MAMMO ORDERABLES Final Resu lt from Last 3 Months or Most Recently Relevant to Health Maintenance Insurance ANTH ANTHEM ANTHEM Care Teams Vice President Medical Affairs Relationship Specialty Start Date End Date Mary Jo Ellis MD [address] [place] [address] PCP - General 03/06/18
== END 2024-10-03 07:42 | disposition home or self-care (01) ==
LOC: ANHFOHIMG 07:42
PROVIDERS: PCP Nurse Practitioner Family; Visit Provider Nurse Practitioner Family
DX: Z12.31 Encounter for screening mammogram for malignant neoplasm of breast (principal)
CPT/HCPCS: 36415; 77063; 77067; 80053; 80061; 83036; 85025

== ENCOUNTER 2024-10-03 08:30 | Outpatient (CLI) | payer BC, SELFPAY ==
--- OUTSIDE RECORDS SUMMARY | 2000-11-09 19:00 | XMS_ITS | Continuity of Care Document ---
Author Organization [facility] Address [address] [place] [address] Phone Care Team Providers Care Pier Hand Name Role Phone Tom OD, Bert Unavailable Unavailable Advance Directives Directive Yes / No Effective Date File Name No Information Encounters Encounter Description Practice Location Reason(s) For Visit Diagnoses Date Provider Providers Copied on Encounter [facility], [address], [place], [place], [id number], [place] tel:[phone] [facility] No Information Oct-0 6-200 1 Tom OD Bert. [address] , [address], [place], [address], [place]. tel:[phone] Family History Family Member Type Diagnosis Age At Onset No Information Payers Payer name Insurance type Covered democrat ID Authoriza tion(s) No Information Social History [...]
--- OUTSIDE RECORDS SUMMARY | 2024-10-03 08:34 | XMS_ITS | Encounter Summary ---
Author Organization [facility] Address [address] [place] [address] Phone Care Team Providers Care Box Truck Driver Name Role Phone Provider, None Primary Care Provider Unavailabl e Reason for Visit * Reason Comments Medication Refill Encounter Details Date Type Department Care Team (Late st Contact Info) Description 08/01/2024 Refill [facility] #2 [place] [address] Marcus Shannon MD #[address] [address] Medication Refill Social History Tobacco Use Types [...] documented as of this encounter Care Teams Box Truck Driver Relationship Specialty Start Date End Date Provider, None [place] PCP - General 07/26/24 documented as of this encounter
--- OUTSIDE RECORDS SUMMARY | 2024-10-03 08:34 | XMS_ITS | Encounter Summary ---
Author Organization [facility] Address [address] [place] [address] Phone Care Team Providers Care Mold Cutting Machine Operator Name Role Phone Marcus Shannon MD Primary Care Provider +1 -[phone] Provider, None Primary Care Provider Unavailabl e Reason for Visit * Reason Comments Medication Refill Encounter Details Date Type Department Care Team (Late st Contact Info) Description 04/21/2023 Refill [facility] #2 [place] [address] Marcus Shannon MD #[address] [address] Medication Refill Social History Tobacco Use Types [...] AM CDT [facility]) [facility] Med[facility] Refill Standing Order for [...] Dept 04/19/23 Office Visit [facility]22 Office Visit Paul Russ APRN, YARN DRY ROOM WORKER [facility] Showing recent visits within past 365 days [...] documented as of this encounter Care Teams Mold Cutting Machine Operator Relationship Specialty Start Date End Date Marcus Shannon MD #[address] [address] PCP - General Family Medicine 07/06/16 07/25/24 Provider, None [place] PCP - General 07/26/24 documented as of this encounter
--- OUTSIDE RECORDS SUMMARY | 2024-10-03 08:34 | XMS_ITS | Encounter Summary ---
Author Organization [facility] Address [address] [place] [address] Phone Care Team Providers Care Manufacturers Agent Name Role Phone Marcus Shannon MD Primary Care Provider +1 -[phone] Provider, None Primary Care Provider Unavailabl e Reason for Visit * Reason Comments Medication Refill Encounter Details Date Type Department Care Team (Late st Contact Info) Description 04/05/2023 Refill [facility] #2 [place] [address] Marcus Shannon MD #[address] [address] Medication Refill Social History Tobacco Use Types [...] Provider Dept 04/19/23 Appointment Marcus Shannon MD [facility] Showing future appointments within next 90 days and meeting all other requirements S SPECIAL AGENT documented in this encounter Plan of Treatment Not on file documented as of this encounter Visit Diagnoses Not on filedocumented in this encounter Additional Health Concerns Assessment Noted Time PHQ-9 Depression Total Score: 0 05/08/19 21 9:00 AM CDT documented as of this encounter Care Teams Manufacturers Agent Relationship Specialty Start Date End Date Marcus Shannon MD #[address] [address] PCP - General Family Medicine 07/06/16 07/25/24 Provider, None [place] PCP - General 07/26/24 documented as of this encounter
--- OUTSIDE RECORDS SUMMARY | 2024-10-03 08:34 | XMS_ITS | Encounter Summary ---
Author Organization [facility] Address [address] [place] [address] Phone Care Team Providers Care Senior Administrator Support Name Role Phone Marcus Shannon MD Primary Care Provider +1 -[phone] Provider, None Primary Care Provider Unavailabl e Reason for Visit * Reason Comments Medication Refill Encounter Details Date Type Department Care Team (Late st Contact Info) Description 05/16/2023 Refill [facility] #2 [place] [address] Marcus Shannon MD #[address] [address] Medication Refill Social History Tobacco Use Types [...] documented as of this encounter Care Teams Senior Administrator Support Relationship Specialty Start Date End Date Marcus Shannon MD #[address] [address] PCP - General Family Medicine 07/06/16 07/25/24 Provider, None [place] PCP - General 07/26/24 documented as of this encounter
--- OUTSIDE RECORDS SUMMARY | 2024-10-03 08:34 | XMS_ITS | Encounter Summary ---
Author Organization [facility] Address [address] [place] [address] Phone Care Team Providers Care X Ray Developing Machine Operator Name Role Phone Marcus Shannon MD Primary Care Provider [phone] [phone] Provider, None Primary Care Provider Unavailabl e Reason for Visit * Reason Comments Medication Refill Encounter Details Date Type Department Care Team (Late st Contact Info) Description 01/16/2023 Refill [facility] #2 [place] [id number] Marcus Shannon MD [address] [address] Medication Refill Social History Tobacco Use Types [...] Bennett 03/02/22 Office Visit Marcus Shannon MD [facility] Showing recent visits within past 365 days and meeting all other requirements Future Appointments No visits were found meeting these conditions. Showing future appointments within next 90 days and meeting all other requirements AN documented in this encounter Plan of Treatment Not on file documented as of this encounter Visit Diagnoses Not on filedocumented in this encounter Additional Health Concerns Assessment Noted Time PHQ-9 Depression Total Score: 0 05/08/19 9:00 AM CDT documented as of this encounter Care Teams X Ray Developing Machine Operator Relationship Specialty Start Date End Date Marcus Shannon MD [address] [address] PCP - General Family Medicine 07/06/16 07/25/24 Provider, None [place] PCP - General 07/26/24 documented as of this encounter
--- OUTSIDE RECORDS SUMMARY | 2024-10-03 08:34 | XMS_ITS | Encounter Summary ---
Author Organization [facility] Address [address] [place] [address] Phone Care Team Providers Care Machine Cloth Trimmer Name Role Phone Marcus Shannon MD Primary Care Provider [phone] [phone] Provider, None Primary Care Provider Unavailabl e Reason for Visit * Reason Comments Medication Refill Encounter Details Date Type Department Care Team (Late st Contact Info) Description 07/25/2023 Refill [facility] #2 [place] [address] Marcus Shannon MD #[address] [address] Medication Refill Social History Tobacco Use Types [...] documented as of this encounter Care Teams Machine Cloth Trimmer Relationship Specialty Start Date End Date Marcus Shannon MD #[address] [address] PCP - General Family Medicine 07/06/16 07/25/24 Provider, Maryan [place] PCP - General 07/26/24 documented as of this encounter
--- OUTSIDE RECORDS SUMMARY | 2024-10-03 08:34 | XMS_ITS | Encounter Summary ---
Author Organization [facility] Address [address] [place] [address] Phone Care Team Providers Care Latex Caster Name Role Phone Marcus Shannon MD Primary Care Provider [phone] [phone] Provider, None Primary Care Provider Unavailabl e Reason for Visit * Reason Comments Medication Refill Encounter Details Date Type Department Care Team (Late st Contact Info) Description 02/20/2020 Refill [facility] [address] [place] [address] Marcus Shannon MD [address] [address] Medication Refill Social History Tobacco Use Types [...] CST MyChart message was sent to patient. RITY ESCORT * Telephone Encounter - Nicole Hays RN - 02/20/2020 1:07 PM CST Patient needs appointment. RITY ESCORT documented in this encounter Plan of Treatment Not on file documented as of this encounter Visit Diagnoses Not on filedocumented in this encounter Additional Health Concerns Assessment Noted Time PHQ-9 Depression Total Score: 0 02/19/19 19 3:00 PM SECURITY ESCORT documented as of this encounter Care Teams Latex Caster Relationship Specialty Start Date End Date Marcus Shannon MD [address] [address] PCP - General Family Medicine 07/06/16 07/25/24 Provider, None [place] PCP - General 07/26/24 documented as of this encounter
--- OUTSIDE RECORDS SUMMARY | 2024-10-03 08:34 | XMS_ITS | Encounter Summary ---
Author Organization [facility] Address [address] [place] [address] Phone Care Team Providers Care Letter Of Credit Document Examiner Name Role Phone Marcus Shannon MD Primary Care Provider [phone] [phone] Provider, None Primary Care Provider Unavailabl e Reason for Visit * Reason Comments Medication Refill Encounter Details Date Type Department Care Team (Late st Contact Info) Description 04/25/2020 Refill [facility] #2 [place] [id number] Marcus Shannon MD #[address] [address] Medication Refill Social History Tobacco Use Types [...] COVID-19? No / Unsure 04/13/2020 12:40 PM SYSTEMS AUDITOR documented as of this encounter Miscellaneous Notes [...] Outpatient Visits 1 year ago Essential hypertension [facility] Marcus Maher MD 1 year ago Hyperglycemia [facility] Marcus Maher MD 2 years ago Essential hypertension [facility] Marcus Maher MD 3 years ago Non morbid obesity, unspecified obesity type [facility] Marcus Maher MD Upcoming Appointments Future Appointments In 1 week Marcus Shannon MD [facility]WORK OPERATIONS PROJECT MANAGER - Recent and Past Visits Recent Visits No visits were found meeting these conditions. Showing recent visits within past 460 days with a meds authorizing provider and meeting all other requirements Future Appointments Date Type Provider Dept 05/07/20 Appointment Marcus Shannon MD [facility] Showing future appointments within next 90 [...] Total Score: 0 02/19/19 19 3:00 PM SYSTEMS AUDITOR documented as of this encounter Care Teams Letter Of Credit Document Examiner Relationship Specialty Start Date End Date Marcus Shannon MD [address] [address] PCP - General Family Medicine 07/06/16 07/25/24 Provider, None [place] PCP - General 07/26/24 documented as of this encounter
--- OUTSIDE RECORDS SUMMARY | 2024-10-03 08:34 | XMS_ITS | Encounter Summary ---
Author Organization [facility] Address [address] [place] [address] Phone Care Team Providers Care Mds Coordinator Name Role Phone Marcus Shannon MD Primary Care Provider [phone] [phone] Provider, None Primary Care Provider Unavailabl e Reason for Visit * Reason Comments Medication Refill Encounter Details Date Type Department Care Team (Late st Contact Info) Description 06/20/2024 Refill [facility] #2 [place] [address] Marcus Shannon MD #[address] [address] Medication Refill Social History Tobacco Use Types [...] documented as of this encounter Care Teams Mds Coordinator Relationship Specialty Start Date End Date Marcus Shannon MD #[address] [address] PCP - General Family Medicine 07/06/16 07/25/24 Provider, None [place] PCP - General 07/26/24 documented as of this encounter
--- OUTSIDE RECORDS SUMMARY | 2024-10-03 08:34 | XMS_ITS | Encounter Summary ---
Author Organization [facility] Address [address] [place] [address] Phone Care Team Providers Care Shortage Worker Name Role Phone Provider, None Primary Care Provider Unavailabl e Reason for Visit * Reason Comments Medication Refill Encounter Details Date Type Department Care Team (Late st Contact Info) Description 08/20/2024 Refill [facility] #2 [place] [address] Marcus Shannon MD #[address] [address] Medication Refill Social History Tobacco Use Types [...] documented as of this encounter Care Teams Shortage Worker Relationship Specialty Start Date End Date Provider, None [place] PCP - General 07/26/24 documented as of this encounter
--- OUTSIDE RECORDS SUMMARY | 2024-10-03 08:34 | XMS_ITS | Encounter Summary ---
Author Organization [facility] Address [address] [place] [address] Phone Care Team Providers Care Biology Internship Name Role Phone Marcus Shannon MD Primary Care Provider [phone] [phone] Provider, None Primary Care Provider Unavailabl e Reason for Visit * Reason Comments Medication Refill Encounter Details Date Type Department Care Team (Late st Contact Info) Description 03/02/2023 Refill [facility] #2 [place] [address] Marcus Shannon MD #[address] [address] Medication Refill Social History Tobacco Use Types [...] Payton Saeed RMA - 03/06/2023 1:44 PM BENEFITS COORDINATOR scheduled FITS COORDINATOR * Telephone Encounter - Nicole Hays RN - 03/02/2023 3:05 PM CST Needs OV with PCP FITS COORDINATOR * Telephone Encounter - Nicole Hays RN [...] 6 months No results found for: GFRA FITS COORDINATOR documented in this encounter Plan of Treatment Not on file documented as of this encounter Visit Diagnoses Not on filedocumented in this encounter Additional Health Concerns Assessment Noted Time PHQ-9 Depression Total Score: 0 05/08/19 21 9:00 AM CDT documented as of this encounter Care Teams Biology Internship Relationship Specialty Start Date End Date Marcus Shannon MD [address] [place] [id number] PCP - General Family Medicine 07/06/16 07/25/24 Provider, None [place] PCP - General 07/26/24 documented as of this encounter
--- OUTSIDE RECORDS SUMMARY | 2024-10-03 08:35 | XMS_ITS | Clinical Summary ---
Author Organization [facility] Address [address] [place] [address] Phone Care Team Providers Care Automation Analyst Name Role Phone Provider, None Primary Care [...] by Per NG tube route daily. Active Sheridan-3 Fatty Acids (FISH OIL PO) Take by mouth. Activ e fluticasone (FLONASE) 50 MCG/ACT Suspension 1 [place] by Nasal route daily. Use in each [...] [facility] [address] [place] [address] Marcus Shannon MD Medication Refill 08/01/2024 Refill [facility] [address] [place] [address] Marcus Shannon MD Medication Refill 07/26/2024 Telephone [facility] 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 Current study was also evaluated with [employer] version 7.2. 2D digital mammographic views, as well as 3D digital tomosynthesis were performed in the CC and MLO projections. CLINICAL: Routine screening. Patient has no complaints. No personal history of cancer. No family history of breast cancer. COMPARISONS: Comparison is made to exams dated: 03/02/2022, 11/30/2020, and 12/03/2019 [facility]. BREAST TISSUE:There are scattered fibroglandular densities in [...] exam. Electronically signed by: Morgan giordano/uma:07/06/2023 16:07:11 Compress Engineer(s): RT Thalia(R)(M), [facility] letter sent: Normal Exam Reading location: [facility] BI-RADS: 1 Negative Procedure Note Morgan Cain [...] to exams dated: 03/02/2022, 11/30/2020, and 12/03/2019 [facility]. BREAST TISSUE:There are scattered fibroglandular densities in [...] exam. Electronically signed by: Morgan giordano/uma:07/06/2023 16:07:11 Compress Engineer(s): RT Thalia(R)(M), [facility] letter sent: Normal Exam Reading location: [facility] BI-RADS: 1 Negative [facility] Dc Shannon MD IMG MAMMO ORDERABLES Nataliia l Result * (ABNORMAL) HEMOGLOBIN A1C W/ ESTIMATED GLUCOSE (03/02/2022 3:32 PM COMMERCIAL TRAILER TRUCK DRIVER) HGB-A1C 6.3(H) 4.0 - 6.0 % 03/02/2022 4:18 PM COMMERCIAL TRAILER TRUCK DRIVER [facility] Est Average Glucose 134.1 mg/dL 03/02/2022 4:18 PM COMMERCIAL TRAILER TRUCK DRIVER [facility] Blood Venipuncture / Unknown 03/02/2022 3:32 PM COMMERCIAL TRAILER TRUCK DRIVER 03/02/2022 3:32 PM COMMERCIAL TRAILER TRUCK DRIVER Narrative [facility] - 03/02/2022 4:18 PM COMMERCIAL TRAILER TRUCK DRIVER HEMOGLOBIN A1C: DIABETIC PATIENTS: WELL-CONTROLLED: 6.2 - 7.0 INTERMEDIATE WELL-CONTROLLED: 7.0 - 9.0 POORLY-CONTROLLED: >9.0 Marcus Shannon MD CHEMISTRY ORDERABLES Nataliia matos Result [facility] [address] [place] [address] * (ABNORMAL) CMP (COMPREHENSIVE METABOLIC PANEL) (2020 9:30 AM CDT) SODIUM 138 136 - 144 mmol/L 2020 11:04 AM CDT [facility] POTASSIUM 4.1 3.5 - 5.1 mmol/L 2020 11:04 AM CDT [facility] CHLORIDE 101 100 - 110 mmol/L 2020 11:04 AM CDT [facility] CO2, VENOUS 27 22 - 32 mmol/L 2020 11:04 AM CDT [facility] ANION GAP 14.1 8.0 - 20.0 mmol/L 2020 11:04 AM CDT [facility] GLUCOSE 117(H) 70 - 99 mg/dL 2020 11:04 AM CDT [facility] BUN 13 6 - 20 mg/dL 2020 11:04 AM CDT [facility] CREATININE, BLOOD 0.86 0.60 - 1.10 mg/dL 2020 11:04 AM CDT [facility] BUN/CREATININE RATIO 15 12 - 20 ratio 2020 11:04 AM CDT [facility] TOTAL PROTEIN 7.8 6.0 - 8.3 g/dL 2020 11:04 AM CDT [facility] ALBUMIN 4.4 3.5 - 5.2 g/dL 2020 11:04 AM CDT [facility] Comment: The colormetric methods used for the determination of Albumin may lead to falsely elevated test results in patients suffering from renal failure or insufficiency due to interference with other proteins. A/G RATIO 1.3 1.0 - 2.0 2020 11:04 AM CDT [facility] CALCIUM 9.4 8.9 - 10.3 mg/dL 2020 11:04 AM CDT [facility] T BILI 0.4 <=1.2 mg/dL 2020 11:04 AM CDT [facility] SGOT (AST) 24 <=32 U/L 2020 11:04 AM CDT [facility] SGPT (ALT) 24 <=41 U/L 2020 11:04 AM CDT [facility] ALKALINE PHOSPHATASE 100 35 - 105 U/L 2020 11:04 AM CDT [facility] GFR, EST. NONAFRICAN >60 >=60 2020 11:04 AM CDT [facility] GFR, EST. >60 >=60 021 11:04 AM CDT [facility] Comment: Creatinine Clearance is the preferred criteria for selecting drug dose adjustments in renally impaired patients. The GFR is provided as additional pertinent clinical information. GFR is reported in mL/min/1.73 sq m. IS THE PATIENT REQUIRED TO BE FASTING? No 2020 11:04 AM CDT [facility] Blood Venipuncture / Unknown 2020 9:30 AM CDT 2020 10:28 AM CDT us Marcus Shannon MD CHEMISTRY ORDERABLES Nataliia matos Result [facility] [address] [place] [address] * HEPATITIS PANEL ACUTE (AHP) (02/19/2018 4:29 PM COMMERCIAL TRAILER TRUCK DRIVER) HEPATITIS A IGM ANTIBODY NON DETECTED NON DETECTED 02/19/2018 10:40 PM COMMERCIAL TRAILER TRUCK DRIVER [facility] Comment: IGM Antibodies to HAV not detected. Does not exclude early acute or recovered HAV infection. HEP B CORE AB (IGM) NON DETECTED NON DETECTED 02/19/2018 10:40 PM COMMERCIAL TRAILER TRUCK DRIVER [facility] Comment: IGM anti-HBC not detected. Does not exclude the possibility of exposure to or infection with HBV. HEPATITIS B SURFACE ANTIGEN NON DETECTED NON DETECTED 02/19/2018 10:40 PM COMMERCIAL TRAILER TRUCK DRIVER [facility] Comment: A nonreactive test result does [...] antibody 0.08 <1 S/CO 02/19/2018 10:40 PM COMMERCIAL TRAILER TRUCK DRIVER [facility] Comment: Signal/Cutoff ratio < 0.79 is Nondetected Signal/Cutoff ratio 0.80-0.99 is Grayzone Signal/Cutoff ratio > 0.99 is Detected Supplemental assays are recommended if signal/cutoff ratio is >/=1.00. Signal/cutoff ratio result >/= 5.00 is 97% predictive of positivity for recombinant immunoblot assay (RIBA) and will be reported to the [place] Department of Public Health as required. Blood specimen (specimen) Venipuncture / Unknown 02/19/2018 4:29 PM COMMERCIAL TRAILER TRUCK DRIVER 02/19/2018 4:37 PM COMMERCIAL TRAILER TRUCK DRIVER us Marcus Shannon MD HEMATOLOGY ORDERABLES Fin al Result [facility] [address] [place] [address], from Last 3 Months or Most Recently Relevant to Health Maintenance Insurance [facility] Care Teams Automation Analyst Relationship Specialty Start Date End Date Provider, None [place] PCP - General 07/26/24
--- OUTSIDE RECORDS SUMMARY | 2024-10-03 08:35 | XMS_ITS | Encounter Summary ---
Author Organization [facility] Address [address] [place] [address] Phone Care Team Providers Care Mill Roll Operator Name Role Phone Marcus Shannon MD Primary Care Provider [phone] -[phone] Provider, None Primary Care Provider Unavailabl e Reason for Visit * Reason Comments Medication Refill Encounter Details Date Type Department Care Team (Late st Contact Info) Description 08/31/2021 Refill [facility] #2 [place] [address] Marcus Shannon MD [address] [address] Medication Refill Social History Tobacco Use Types [...] (TOPROL-XL) 50 MG TABLET SR 24 HR [[id number]] 8 Status: Active Mode: Ordering in Standing Orders mode Communicated by: Nicole Hays RN Ordering user: Nicole Hays RN 08/15/21930 Ordering provider: Marcus Shannon MD Authorized by: Marcus Shannon MD Frequency: ??08/15/21 - Until Discontinued Released by: Nicole Hays RN 08/15/[address] documented in this encounter Plan of Treatment Not on file documented as of this encounter Visit Diagnoses Not on filedocumented in this encounter Additional Health Concerns Assessment Noted Time PHQ-9 Depression Total Score: 0 05/08/19 21 9:00 AM CDT documented as of this encounter Care Teams Mill Roll Operator Relationship Specialty Start Date End Date Marcus Shannon MD #[address] [address] PCP - General Family Medicine 07/06/16 07/25/24 Provider, None [place] PCP - General 07/26/24 documented as of this encounter
--- OUTSIDE RECORDS SUMMARY | 2024-10-03 08:35 | XMS_ITS | Clinical Summary ---
Author Organization [facility] Address [address] [place] [address] Care Team Providers Care Client Technical Professional Name Role Phone Mary Jo Ellis MD Primary Care Provider +1- [phone] Source Comments [facility],non-owned Affiliates and Associated Physician Practices is amultiple site organization consisting of ambulatory clinics and hospital sitesin [place], [place], [place] and [place]. This disclosure is being madepursuant to the Care Everywhere program and may not contain all information available regarding this patient. 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 PRIOR: 2012 [facility] now available FINDINGS: Computer assisted detection was utilized. The tissue density is predominantly fatty. There is no significant change since the prior mammogram. ASSESSMENT: BIRADS Category 1: Negative mammogram. RECOMMENDATION: Follow up in one year. Thank you for allowing us to participate in the care of your patient. [facility] Breast Care utilizes [employer] as a reminder system to notify patients of their next recommended mammogram. us Lauren Jacobson MD MAMMO ORDERABLES Final Resu lt from Last 3 Months or Most Recently Relevant to Health Maintenance Insurance ANTH ANTHEM ANTHEM Care Teams Client Technical Professional Relationship Specialty Start Date End Date Mary Jo Ellis MD [address] [place] [address] PCP - General 03/06/18
--- OUTSIDE RECORDS SUMMARY | 2024-10-03 08:35 | XMS_ITS | Encounter Summary ---
Author Organization [facility] Address [address] [place] [address] Care Team Providers Care Residency Program Coordinator Name Role Phone Mary Jo Ellis MD Primary Care Provider [phone]- [phone] Encounter Details Date Type Department Care Team (Late st Contact Info) Description 07/15/2019 Lab Requisition [facility] [address] [place] [address] Gerardo Bedoya MD Social History Tobacco Use Types Packs/Day Years Used Date Smoking Tobacco: Never Assessed Comments No Sex and Gender Information Value Date Recorded Sex Assigned at Not on file 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 MICROBIOLOGY Microbiology SPECIMEN FROM NASOPHARYNGEAL STRUCTURE / Unknown Collection / Unknown 07/15/2019 8:30 AM CDT 07/15/2019 3:27 PM CDT Narrative [facility] MICROBIOLOGY - 07/15/2019 11:24 PM CDT This Real Time RT-PCR assay was developed and its performance characteristics determined by [facility]. This test has been [...] LAB - MICROBIOLOGY ORDERABL ES Final Result [facility] MICROBIOLOGY [address] [place] [address], [facility] [phone] documented in this encounter Visit Diagnoses Not on filedocumented in this encounter Additional Health Concerns Infection Onset Date Last Indicated Resolved Time COVID-19 Under Investigation 07/15/2019 07/15/2019 07/15/2019 11:24 PM CDT COVID-19 Under Investigation 08/22/2019 08/20/2019 08/22/2019 10:10 PM CDT documented as of this encounter Care Teams Residency Program Coordinator Relationship Specialty Start Date End Date Mary Jo Ellis MD [address] [place] [address] PCP - General 03/06/18 documented as of this encounter
--- OUTSIDE RECORDS SUMMARY | 2024-10-03 08:35 | XMS_ITS | Encounter Summary ---
Author Organization [facility] Address [address] [place] [address] Care Team Providers Care Locomotive Firer Name Role Phone Mary Jo Ellis MD Primary Care Provider +1- [phone] Encounter Details Date Type Department Care Team (Late st Contact Info) Description 08/22/2019 Lab Requisition [facility] [address] [place] [address] Gerardo Bedoya MD Social History Tobacco Use Types Packs/Day Years Used Date Smoking Tobacco: Never Assessed Comments No Sex and Gender Information Value Date Recorded Sex Assigned at Not on file Legal Sex Female 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 This test has been [...] LAB - MICROBIOLOGY ORDERABL ES Final Result [facility] [address] [place] [address], [facility] [phone] documented in this encounter Visit Diagnoses Not on filedocumented in this encounter Additional Health Concerns Infection Onset Date Last Indicated Resolved Time COVID-19 Under Investigation 08/22/2019 08/20/2019 08/22/2019 10:10 PM CDT documented as of this encounter Care Teams Locomotive Firer Relationship Specialty Start Date End Date Mary Jo Ellis MD [facility] [place] [address] PCP - General 03/06/18 documented as of this encounter
[2024-10-03 18:24] LABS: Hematocrit 37.1 % (37.0-47.0); Hemoglobin 11.8 g/dL (12.0-15.0); Immature Granulocyte Percent A 0.3 % (0-0.5); Lymphocytes Absolute Auto 2.77 K/mm3 (0.9-3.2); Mean Corpuscular HGB Conc 31.8 g/dl (32-36); Mean Corpuscular Hemoglobin 24.7 pg (26-34); Mean Corpuscular Volume 77.6 fl (80-100); Nucleated Red Blood Cells Absolute Auto 0.000 K/mm3 (0.0-0.012); Nucleated Red Blood Cells Perc 0.0 % (0.0-0.2); Platelet Count Result 242 k/mm3 (150-375); Red Blood Count 4.78 M/mm3 (4.2-5.4); White Blood Count 9.1 K/mm3 (4.5-10.0)
[2024-10-03 18:54] LABS: Hemoglobin A1C 6.3 % (<5.7)
[2024-10-03 19:12] LABS: Alanine Aminotransferase 25 U/L (6-35); Albumin Level 4.5 g/dL (3.5-5.1); Alkaline Phosphatase 119 U/L (38-126); Anion Gap 10 mmol/L (4-12); Aspartate Amino Transferase 72 U/L (14-36); Bilirubin,Total 0.5 mg/dL (0.2-1.3); Blood Urea Nitrogen 20 mg/dL (7-17); Calcium 9.9 mg/dL (8.4-10.2); Carbon Dioxide 28 mmol/L (22-30); Chloride 103 mmol/L (98-107); Cholesterol 176 mg/dL (0-200); Estimated Glomerular Filt Rate 46; Glucose 83 mg/dL (65-110); HDL Direct 48 mg/dL; Potassium 4.6 mmol/L (3.4-5.0); Sodium 141 mmol/L (137-145); Total Protein 8.7 g/dL (6.3-8.2); Triglycerides 56 mg/dL (<150)
== END 2024-10-03 08:31 | disposition home or self-care (01) ==
LOC: ANHGOSHLAB 08:31
PROVIDERS: PCP Nurse Practitioner Family; Visit Provider Nurse Practitioner Family
DX: E78.5 Hyperlipidemia, unspecified (principal); I10 Essential (primary) hypertension; E11.9 Type 2 diabetes mellitus without complications
CPT/HCPCS: 36415; 80053; 80061; 83036; 85025

== ENCOUNTER 2024-11-07 07:52 | Outpatient (CLI) | payer BC, SELFPAY ==
--- OUTSIDE RECORDS SUMMARY | 2000-11-09 19:00 | XMS_ITS | Continuity of Care Document ---
Author Organization [facility] Address [address] [place] [address] Phone Care Team Providers Care Street Photographer Name Role Phone Tom OD, Bert Unavailable Unavailable Advance Directives Directive Yes / No Effective Date File Name No Information Encounters Encounter Description Practice Location Reason(s) For Visit Diagnoses Date Provider Providers Copied on Encounter [facility], [address], [place], [place], [id number], [place] tel:[phone] SEC [facility] No Information Oct-0 6-200 1 Tom OD Bert. [address] [place] , [address], [place], [address], [place]. tel:[phone] Family History Family Member Type Diagnosis Age [...]
--- OUTSIDE RECORDS SUMMARY | 2024-11-07 07:55 | XMS_ITS | Encounter Summary ---
Author Organization [facility] Address [address] [place] [address] Phone Care Team Providers Care Circulation Tender Name Role Phone Marcus Shannon MD Primary Care Provider [phone] [phone] Provider, None Primary Care Provider Unavailabl e Reason for Visit * Reason Comments Medication Refill Encounter Details Date Type Department Care Team (Late st Contact Info) Description 04/25/2020 Refill [facility] [address] [place] [id number] Marcus Shannon MD [address] [address] Medication Refill Social History Tobacco Use Types [...] COVID-19? No / Unsure 04/13/2020 12:40 PM MAINTENANCE AND CUSTODIAN SUPERVISOR documented as of this encounter Miscellaneous Notes [...] Outpatient Visits 1 year ago Essential hypertension [facility] Marcus Maher MD 1 year ago Hyperglycemia [facility] Marcus Maher MD 2 years ago Essential hypertension [facility] Marcus Maher MD 3 years ago Non morbid obesity, unspecified obesity type [facility] Marcus Maher MD Upcoming Appointments Future Appointments In 1 week Marcus Shannon MD [facility] MANUAL TESTER - Recent and Past Visits Recent Visits No visits were found meeting these conditions. Showing recent visits within past 460 days with a meds authorizing provider and meeting all other requirements Future Appointments Date Type Provider Dept 05/07/20 Appointment Marcus Shannon MD [facility] Showing future appointments within next 90 days [...] Total Score: 0 02/19/19 19 3:00 PM MAINTENANCE AND CUSTODIAN SUPERVISOR documented as of this encounter Care Teams Circulation Tender Relationship Specialty Start Date End Date Marcus Shannon MD [address] [address] PCP - General Family Medicine 07/06/16 07/25/24 Provider, None [place] PCP - General 07/26/24 documented as of this encounter
--- OUTSIDE RECORDS SUMMARY | 2024-11-07 07:55 | XMS_ITS | Encounter Summary ---
Author Organization [facility] Address [address] [place] [address] Phone Care Team Providers Care Instructor Extension Work Name Role Phone Marcus Shannon MD Primary Care Provider [phone] [phone] Provider, None Primary Care Provider Unavailabl e Reason for Visit * Reason Comments Medication Refill Encounter Details Date Type Department Care Team (Late st Contact Info) Description 04/05/2023 Refill [facility] [address] [place] [id number] Marcus Shannon MD [address] [address] Medication Refill Social History Tobacco Use Types [...] Provider Dept 04/19/23 Appointment Marcus Shannon MD [facility] Showing future appointments within next 90 days and meeting all other requirements L SOCIOLOGIST documented in this encounter Plan of Treatment Not on file documented as of this encounter Visit Diagnoses Not on filedocumented in this encounter Additional Health Concerns Assessment Noted Time PHQ-9 Depression Total Score: 0 05/08/19 21 9:00 AM CDT documented as of this encounter Care Teams Instructor Extension Work Relationship Specialty Start Date End Date Marcus Shannon MD [address] [address] PCP - General Family Medicine 07/06/16 07/25/24 Provider, None [place] PCP - General 07/26/24 documented as of this encounter
--- OUTSIDE RECORDS SUMMARY | 2024-11-07 07:55 | XMS_ITS | Encounter Summary ---
Author Organization [facility] Address [address] [place] [address] Phone Care Team Providers Care Mapping Technician Name Role Phone Provider, None Primary Care Provider Unavailabl e Reason for Visit * Reason Comments Medication Refill Encounter Details Date Type Department Care Team (Late st Contact Info) Description 08/20/2024 Refill [facility] #2 [place] [address] Marcus Shannon MD #[address] [address] Medication Refill Social History Tobacco Use Types [...] documented as of this encounter Care Teams Mapping Technician Relationship Specialty Start Date End Date Provider, None [place] PCP - General 07/26/24 documented as of this encounter
--- OUTSIDE RECORDS SUMMARY | 2024-11-07 07:55 | XMS_ITS | Encounter Summary ---
Author Organization [facility] Address [address] [place] [address] Phone Care Team Providers Care Senior It Architect Name Role Phone Marcus Shannon MD Primary Care Provider [phone] [phone] Provider, None Primary Care Provider Unavailabl e Reason for Visit * Reason Comments Medication Refill Encounter Details Date Type Department Care Team (Late st Contact Info) Description 05/16/2023 Refill [facility] #2 [place] [address] Marcus Shannon MD [address] [address] Medication Refill Social History Tobacco Use Types [...] as of this encounter Care Teams Senior It Architect Relationship Specialty Start Date End Date Marcus Shannon MD #[address] [address] PCP - General Family Medicine 07/06/16 07/25/24 Provider, None [place] PCP - General 07/26/24 documented as of this encounter
--- OUTSIDE RECORDS SUMMARY | 2024-11-07 07:55 | XMS_ITS | Encounter Summary ---
Author Organization [facility] Address [address] [place] [address] Care Team Providers Care Nematologist Name Role Phone Mary Jo Ellis MD Primary Care Provider [phone]- [phone] Encounter Details Date Type Department Care Team (Late st Contact Info) Description 08/22/2019 Lab Requisition [facility] [address] [place] [address] Gerardo Bedoya MD Social History Tobacco Use Types Packs/Day Years Used Date Smoking Tobacco: Never Assessed Comments No Sex and Gender Information Value Date Recorded Sex Assigned at Not on file 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 This test has been [...] LAB - MICROBIOLOGY ORDERABL ES Final Result [facility] [address] [place] [address], [facility] [phone] documented in this encounter Visit Diagnoses Not on filedocumented in this encounter Additional Health Concerns Infection Onset Date Last Indicated Resolved Time COVID-19 Under Investigation 08/22/2019 08/20/2019 08/22/2019 10:10 PM CDT documented as of this encounter Care Teams Nematologist Relationship Specialty Start Date End Date Mary Jo Ellis MD [facility] [place] [address] PCP - General 03/06/18 documented as of this encounter
--- OUTSIDE RECORDS SUMMARY | 2024-11-07 07:55 | XMS_ITS | Encounter Summary ---
Author Organization [facility] Address [address] [place] [address] Phone Care Team Providers Care Editor Name Role Phone Marcus Shannon MD Primary Care Provider [phone] [phone] Provider, None Primary Care Provider Unavailabl e Reason for Visit * Reason Comments Medication Refill Encounter Details Date Type Department Care Team (Late st Contact Info) Description 07/25/2023 Refill [facility] #[address] [place] [address] Marcus Shannon MD #[address] [address] Medication Refill Social History Tobacco Use Types [...] documented as of this encounter Care Teams Editor Relationship Specialty Start Date End Date Marcus Shannon MD #[address] [address] PCP - General Family Medicine 07/06/16 07/25/24 Provider, Maryan [place] PCP - General 07/26/24 documented as of this encounter
--- OUTSIDE RECORDS SUMMARY | 2024-11-07 07:55 | XMS_ITS | Encounter Summary ---
Author Organization [facility] Address [address] [place] [address] Phone Care Team Providers Care Traveling Engineer Name Role Phone Marcus Shannon MD Primary Care Provider [phone] [phone] Provider, None Primary Care Provider Unavailabl e Reason for Visit * Reason Comments Medication Refill Encounter Details Date Type Department Care Team (Late st Contact Info) Description 06/20/2024 Refill [facility] [address] [place] [address] Marcus Shannon MD #[address] [address] Medication Refill Social History Tobacco Use Types [...] documented as of this encounter Care Teams Traveling Engineer Relationship Specialty Start Date End Date Marcus Shannon MD #[address] [address] PCP - General Family Medicine 07/06/16 07/25/24 Provider, None [place] PCP - General 07/26/24 documented as of this encounter
--- OUTSIDE RECORDS SUMMARY | 2024-11-07 07:55 | XMS_ITS | Encounter Summary ---
Author Organization [facility] Address [address] [place] [address] Phone Care Team Providers Care Etched Circuit Processor Name Role Phone Marcus Shannon MD Primary Care Provider [phone] [phone] Provider, None Primary Care Provider Unavailabl e Reason for Visit * Reason Comments Medication Refill Encounter Details Date Type Department Care Team (Late st Contact Info) Description 04/21/2023 Refill [facility] #2 [place] [address] Marcus Shannon MD [address] [address] Medication Refill Social History Tobacco Use Types [...] Dept 04/19/23 Office Visit Marcus Shannon MD [facility] 06/15/22 Office Visit Paul Russ APRN, SINGLE SPINDLE SCREW MACHINE OPERATOR [facility] Showing recent visits within past 365 days [...] documented as of this encounter Care Teams Etched Circuit Processor Relationship Specialty Start Date End Date Marcus Shannon MD #[address] [address] PCP - General Family Medicine 07/06/16 07/25/24 Provider, None [place] PCP - General 07/26/24 documented as of this encounter
--- OUTSIDE RECORDS SUMMARY | 2024-11-07 07:55 | XMS_ITS | Encounter Summary ---
Author Organization [facility] Address [address] [place] [address] Phone Care Team Providers Care Food And Beverage Analyst Name Role Phone Marcus Shannon MD Primary Care Provider [phone] Provider, None Primary Care Provider Unavailabl e Reason for Visit * Reason Comments Medication Refill Encounter Details Date Type Department Care Team (Late st Contact Info) Description 02/20/2020 Refill [facility] [address] [place] [address] Marcus Shannon MD #[address] [address] Medication Refill Social History Tobacco Use Types [...] CST MyChart message was sent to patient. LINES SUPERINTENDENT * Telephone Encounter - Nicole Hays RN - 02/20/2020 1:07 PM CST Patient needs appointment. LINES SUPERINTENDENT documented in this encounter Plan of Treatment Not on file documented as of this encounter Visit Diagnoses Not on filedocumented in this encounter Additional Health Concerns Assessment Noted Time PHQ-9 Depression Total Score: 0 02/19/19 19 3:00 PM PIPELINES SUPERINTENDENT documented as of this encounter Care Teams Food And Beverage Analyst Relationship Specialty Start Date End Date Marcus Shannon MD #[address] [address] PCP - General Family Medicine 07/06/16 07/25/24 Provider, None [place] PCP - General 07/26/24 documented as of this encounter
--- OUTSIDE RECORDS SUMMARY | 2024-11-07 07:55 | XMS_ITS | Encounter Summary ---
Author Organization [facility] Address [address] [place] [address] Phone Care Team Providers Care Supercharger Repair Supervisor Name Role Phone Provider, None Primary Care Provider Unavailabl e Reason for Visit * Reason Comments Medication Refill Encounter Details Date Type Department Care Team (Late st Contact Info) Description 08/01/2024 Refill [facility] #2 [place] [address] Marcus Shannon MD #[address] [address] Medication Refill Social History Tobacco Use Types [...] documented as of this encounter Care Teams Supercharger Repair Supervisor Relationship Specialty Start Date End Date Provider, None [place] PCP - General 07/26/24 documented as of this encounter
--- OUTSIDE RECORDS SUMMARY | 2024-11-07 07:55 | XMS_ITS | Encounter Summary ---
Author Organization [facility] Address [address] [place] [address] Phone Care Team Providers Care Home Agent Name Role Phone Marcus Shannon MD Primary Care Provider [phone] [phone] Provider, None Primary Care Provider Unavailabl e Reason for Visit * Reason Comments Medication Refill Encounter Details Date Type Department Care Team (Late st Contact Info) Description 03/02/2023 Refill [facility] #2 [place] [address] Marcus Shannon MD #[address] [address] Medication Refill Social History Tobacco Use Types [...] Payton Saeed RMA - 03/06/2023 1:44 PM SPRAY OPERATOR scheduled Y OPERATOR * Telephone Encounter - Nicole Hays RN - 03/02/2023 3:05 PM CST Needs OV with PCP Y OPERATOR * Telephone Encounter - Nicole Hays RN [...] 6 months No results found for: GFRA Y OPERATOR documented in this encounter Plan of Treatment Not on file documented as of this encounter Visit Diagnoses Not on filedocumented in this encounter Additional Health Concerns Assessment Noted Time PHQ-9 Depression Total Score: 0 05/08/19 21 9:00 AM CDT documented as of this encounter Care Teams Home Agent Relationship Specialty Start Date End Date Marcus Shannon MD [address] [place] [id number] PCP - General Family Medicine 07/06/16 07/25/24 Provider, None [place] PCP - General 07/26/24 documented as of this encounter
--- OUTSIDE RECORDS SUMMARY | 2024-11-07 07:55 | XMS_ITS | Clinical Summary ---
Author Organization [facility] Address [address] [facility] [place] [address] Care Team Providers Care Cheesemaker Helper Name Role Phone Mayr Jo Ellis MD Primary Care Provider +1- [phone] Source Comments [facility],non-owned Affiliates and Associated Physician Practices is amultiple site organization consisting of ambulatory clinics and hospital sitesin [place], [place], [place] and [place]. This disclosure is being madepursuant to the Care Everywhere program and may not contain all information available regarding this patient. Last updated 17.[facility] [employer] Social History Tobacco Use Types Packs/Day Years Used Date Smoking Tobacco: Never Assessed Comments No Sex and Gender Information Value Date Recorded Sex Assigned at Not on file Legal Sex Female 9:46 AM COMMUNITY MUSIC THERAPIST Gender Identity Not on file Sexual Orientation [...] (1 of 2) 2014 MAMMOGRAM 09/11/2015 09/10/2013 DEPRESSION SCREENING 02/06/2024 COVID-19 VACCINE (1 - 2023-2 5 season) 2024 INFLUENZA VACCINE (#1) 2024 HIB VACCINE Aged [...] Digital screening mammogram on 09/10/2013. PRIOR: 2012 [facility] now available FINDINGS: Computer assisted detection was utilized. The tissue density is predominantly fatty. There is no significant change since the prior mammogram. ASSESSMENT: BIRADS Category 1: Negative mammogram. RECOMMENDATION: Follow up in one year. Thank you for allowing us to participate in the care of your patient. [facility] utilizes [employer] as a reminder system to notify patients of their next recommended mammogram. us Lauren Jacobson MD MAMMO ORDERABLES Final Resu lt from Last 3 Months or Most Recently Relevant to Health Maintenance Insurance ANTH ANTHEM ANTHEM Care Teams Cheesemaker Helper Relationship Specialty Start Date End Date Mary Jo Ellis MD [address] [place] [address] PCP - General 03/06/18
--- OUTSIDE RECORDS SUMMARY | 2024-11-07 07:55 | XMS_ITS | Clinical Summary ---
Author Organization [facility] Address [address] [place] [address] Phone Care Team Providers Care Art Gallery Internship Name Role Phone Provider, None Primary Care [...] by Per NG tube route daily. Active [place]-3 Fatty Acids (FISH OIL PO) Take by mouth. Activ e fluticasone (FLONASE) 50 MCG/ACT Suspension 1 [place] by Nasal route daily. Use in each [...] Care Team Description 08/20/2024 Refill [facility] [address] [place] [address] Marcus Shannon MD Medication Refill from Last 3 Months Immunizations Immunization Administration Dates Next Due Covid-19, Mrna, Lnp-s, Pf, 3 0 Mcg/0.3 Ml Dose (Pfizer) 05/07/2020,04/16/2020 Influenza Vaccine greater than 3 yrs [...] W/ ESTIMATED GLUCOSE Routine 03/02/2022 3:32 PM MILLROOM SUPERVISOR Type 2 diabetes mellitus treated without insulin (HCC) CMP (COMPREHENSIVE METABOLIC PANEL) Routine 2020 9:30 AM CDT Hyperlipidemia, unspecified hyperlipidemia type HEPATITIS PANEL ACUTE (AHP) Routine 02/19/2018 4:29 PM MILLROOM SUPERVISOR Elevated liver enzymes from Last 3 Months [...] to exams dated: 03/02/2022, 11/30/2020, and 12/03/2019 [facility]. BREAST TISSUE:There are scattered fibroglandular densities in [...] exam. Electronically signed by: Morgan giordano/uma:07/06/2023 16:07:11 Potato Picker(s): RT Thalia(Mei)(M), [facility] letter sent: Normal Exam Reading location: [facility] BI-RADS: 1 Negative Procedure Note Morgan Cain [...] to exams dated: 03/02/2022, 11/30/2020, and 12/03/2019 [facility]. BREAST TISSUE:There are scattered fibroglandular densities in [...] exam. Electronically signed by: Morgan giordano/uma:07/06/2023 16:07:11 Potato Picker(s): RT Thalia(R)(M), [facility] letter sent: Normal Exam Reading location: [facility] BI-RADS: 1 Negative Marcus Shannon MD IMG MAMMO ORDERABLES Nataliia l Result * (ABNORMAL) HEMOGLOBIN A1C W/ ESTIMATED GLUCOSE (03/02/2022 3:32 PM MILLROOM SUPERVISOR) HGB-A1C 6.3(H) 4.0 - 6.0 % 03/02/2022 4:18 PM MILLROOM SUPERVISOR [facility] Est Average Glucose 134.1 mg/dL 03/02/2022 4:18 PM MILLROOM SUPERVISOR [facility] Blood Venipuncture / Unknown 03/02/2022 3:32 PM MILLROOM SUPERVISOR 03/02/2022 3:32 PM MILLROOM SUPERVISOR Narrative [facility] - 03/02/2022 4:18 PM MILLROOM SUPERVISOR HEMOGLOBIN A1C: DIABETIC PATIENTS: WELL-CONTROLLED: 6.2 - 7.0 INTERMEDIATE WELL-CONTROLLED: 7.0 - 9.0 POORLY-CONTROLLED: >9.0 Marcus Shannon MD CHEMISTRY ORDERABLES Nataliia l Result [facility] [address] [place] [address] * (ABNORMAL) CMP (COMPREHENSIVE METABOLIC PANEL) (2020 9:30 AM CDT) [facility] SODIUM 138 136 - 144 mmol/L 2020 11:04 AM [facility] POTASSIUM 4.1 3.5 - 5.1 mmol/L 2020 11:04 AM [facility] CHLORIDE 101 100 - 110 mmol/L 2020 11:04 AM [facility] CO2, VENOUS 27 22 - 32 mmol/L 2020 11:04 AM [facility] ANION GAP 14.1 8.0 - 20.0 mmol/L 2020 11:04 AM [facility] GLUCOSE 117(H) 70 - 99 mg/dL 2020 11:04 AM [facility] BUN 13 6 - 20 mg/dL 2020 11:04 AM [facility] CREATININE, BLOOD 0.86 0.60 - 1.10 mg/dL 2020 11:04 AM [facility] BUN/CREATININE RATIO 15 12 - 20 ratio 2020 11:04 AM [facility] TOTAL PROTEIN 7.8 6.0 - 8.3 g/dL 2020 11:04 AM [facility] ALBUMIN 4.4 3.5 - 5.2 g/dL 2020 11:04 AM [facility] Comment: The colormetric methods used for the determination of Albumin may lead to falsely elevated test results in patients suffering from renal failure or insufficiency due to interference with other proteins. A/G RATIO 1.3 1.0 - 2.0 2020 11:04 AM [facility] CALCIUM 9.4 8.9 - 10.3 mg/dL 2020 11:04 AM [facility] T BILI 0.4 <=1.2 mg/dL 2020 11:04 AM [facility] SGOT (AST) 24 <=32 U/L 2020 11:04 AM CDT [facility] SGPT (ALT) 24 <=41 U/L 2020 11:04 AM CDT [facility] ALKALINE PHOSPHATASE 100 35 - 105 U/L 2020 11:04 AM CDT [facility] GFR, EST. NONAFRICAN >60 >=60 2020 11:04 AM CDT [facility] GFR, EST. >60 >=60 021 11:04 AM CDT [facility] Comment: Creatinine Clearance is the preferred criteria for selecting drug dose adjustments in renally impaired patients. The GFR is provided as additional pertinent clinical information. GFR is reported in mL/min/1.73 sq m. IS THE PATIENT REQUIRED TO BE FASTING? No 2020 11:04 AM CDT [facility] Blood Venipuncture / Unknown 2020 9:30 AM CDT 2020 10:28 AM CDT Marcus Shannon MD CHEMISTRY ORDERABLES Nataliia matos Result [facility] [address] [place] [address] * HEPATITIS PANEL ACUTE (AHP) (02/19/2018 4:29 PM MILLROOM SUPERVISOR) HEPATITIS A IGM ANTIBODY NON DETECTED NON DETECTED 02/19/2018 10:40 PM MILLROOM SUPERVISOR [facility] Comment: IGM Antibodies to HAV not detected. Does not exclude early acute or recovered HAV infection. HEP B CORE AB (IGM) NON DETECTED NON DETECTED 02/19/2018 10:40 PM MILLROOM SUPERVISOR [facility] Comment: IGM anti-HBC not detected. Does not exclude the possibility of exposure to or infection with HBV. HEPATITIS B SURFACE ANTIGEN NON DETECTED NON DETECTED 02/19/2018 10:40 PM MILLROOM SUPERVISOR [facility] Comment: A nonreactive test [...] antibody 0.08 <1 S/CO 02/19/2018 10:40 PM MILLROOM SUPERVISOR [facility] Comment: Signal/Cutoff ratio < 0.79 is Nondetected Signal/Cutoff ratio 0.80-0.99 is Grayzone Signal/Cutoff ratio > 0.99 is Detected Supplemental assays are recommended if signal/cutoff ratio is >/=1.00. Signal/cutoff ratio result >/= 5.00 is 97% predictive of positivity for recombinant immunoblot assay (RIBA) and will be reported to the [place] Department of Public Health as required. Blood specimen (specimen) Venipuncture / Unknown 02/19/2018 4:29 PM MILLROOM SUPERVISOR 02/19/2018 4:37 PM MILLROOM SUPERVISOR us Marcus Shannon MD HEMATOLOGY ORDERABLES Fin al Result [facility] [address] [place] [address], from Last 3 Months or Most Recently Relevant to Health Maintenance [place] [address] [place] [address] Care Teams Art Gallery Internship Relationship Specialty Start Date End Date Provider, None [place] PCP - General 07/26/24
--- OUTSIDE RECORDS SUMMARY | 2024-11-07 07:55 | XMS_ITS | Encounter Summary ---
Author Organization [facility] Address [address] [place] [address] Phone Care Team Providers Care Fish House Worker Name Role Phone Marcus Shannon MD Primary Care Provider [phone] Provider, None Primary Care Provider Unavailabl e Reason for Visit * Reason Comments Medication Refill Encounter Details Date Type Department Care Team (Late st Contact Info) Description 01/16/2023 Refill [facility] [address] [place] [id number] Marcus Shannon MD [address] [address] Medication Refill Social History Tobacco Use Types [...] Bennett 03/02/22 Office Visit Marcus Shannon MD [facility] Showing recent visits within past 365 days and meeting all other requirements Future Appointments No visits were found meeting these conditions. Showing future appointments within next 90 days and meeting all other requirements FACTURING TECHNOLOGIST documented in this encounter Plan of Treatment Not on file documented as of this encounter Visit Diagnoses Not on filedocumented in this encounter Additional Health Concerns Assessment Noted Time PHQ-9 Depression Total Score: 0 05/08/19 9:00 AM CDT documented as of this encounter Care Teams Fish House Worker Relationship Specialty Start Date End Date Marcus Shannon MD [address] [address] PCP - General Family Medicine 07/06/16 07/25/24 Provider, None [place] PCP - General 07/26/24 documented as of this encounter
--- OUTSIDE RECORDS SUMMARY | 2024-11-07 07:55 | XMS_ITS | Encounter Summary ---
Author Organization [facility] Address [address] [place] [address] Care Team Providers Care Manager Technical Sales Name Role Phone Mary Jo Ellis MD Primary Care Provider [phone] Encounter Details Date Type Department Care Team (Late st Contact Info) Description 07/15/2019 Lab Requisition [facility] [address] [place] [address] Gerardo Bedoya MD Social History Tobacco Use Types Packs/Day Years Used Date Smoking Tobacco: Never Assessed Comments No Sex and Gender Information Value Date Recorded Sex Assigned at Not on file Legal Sex Female 9:46 AM 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 This test has been authorized [...] authorization is terminated or revoked sooner. Gerardo Bdeoya MD LAB - MICROBIOLOGY ORDERABL ES Final Result [facility] [address] [place] [address], [facility] [phone] documented in this encounter Visit Diagnoses Not on filedocumented in this encounter Additional Health Concerns Infection Onset Date Last Indicated Resolved Time COVID-19 Under Investigation 07/15/2019 07/15/2019 07/15/2019 11:24 PM CDT COVID-19 Under Investigation 08/22/2019 08/20/2019 08/22/2019 10:10 PM CDT documented as of this encounter Care Teams Manager Technical Sales Relationship Specialty Start Date End Date Mary Jo Ellis MD [address] [place] [address] PCP - General 03/06/18 documented as of this encounter
--- OUTSIDE RECORDS SUMMARY | 2024-11-07 07:55 | XMS_ITS | Encounter Summary ---
Author Organization [facility] Address [address] [place] [address] Phone Care Team Providers Care Deputy Grand Jury Name Role Phone Marcus Shannon MD Primary Care Provider [phone] [phone] Provider, None Primary Care Provider Unavailabl e Reason for Visit * Reason Comments Medication Refill Encounter Details Date Type Department Care Team (Late st Contact Info) Description 08/31/2021 Refill [facility] [address] [place] [phone] Marcus Shannon MD [address] [address] Medication Refill Social History Tobacco Use Types [...] (TOPROL-XL) 50 MG TABLET SR 24 HR [[id number]] 8 Status: Active Mode: Ordering in Standing Orders mode Communicated by: Nicole Hays RN Ordering user: Nicole Hays RN 08/15/21930 Ordering provider: Marcus Shannon MD Authorized by: Marcus Shannon MD Frequency: ??08/15/21 - Until Discontinued Released by: Nicole Hays RN 08/15/[address] documented in this encounter Plan of Treatment Not on file documented as of this encounter Visit Diagnoses Not on filedocumented in this encounter Additional Health Concerns Assessment Noted Time PHQ-9 Depression Total Score: 0 05/08/19 21 9:00 AM CDT documented as of this encounter Care Teams Deputy Grand Jury Relationship Specialty Start Date End Date Marcus Shannon MD [address] [address] PCP - General Family Medicine 07/06/16 07/25/24 Provider, None [place] PCP - General 07/26/24 documented as of this encounter
[2024-11-07 13:54] LABS: Iron 58 ug/dL (37-170)
[2024-11-07 13:56] LABS: Alanine Aminotransferase 23 U/L (6-35); Albumin Level 4.4 g/dL (3.5-5.1); Alkaline Phosphatase 123 U/L (38-126); Anion Gap 9 mmol/L (4-12); Aspartate Amino Transferase 45 U/L (14-36); Bilirubin,Total 0.6 mg/dL (0.2-1.3); Blood Urea Nitrogen 19 mg/dL (7-17); Calcium 9.7 mg/dL (8.4-10.2); Carbon Dioxide 28 mmol/L (22-30); Chloride 102 mmol/L (98-107); Estimated Glomerular Filt Rate 51; Glucose 94 mg/dL (65-110); Potassium 4.1 mmol/L (3.4-5.0); Sodium 139 mmol/L (137-145); Total Protein 8.5 g/dL (6.3-8.2)
[2024-11-07 14:20] LABS: Percent Iron Saturation 16 % (20-50)
[2024-11-07 14:37] LABS: Ferritin 104.00 ng/mL (11.1-264)
[2024-11-07 15:58] LABS: Vitamin B12 > 1000.0 pg/mL (239-931)
== END 2024-11-07 07:53 | disposition home or self-care (01) ==
LOC: ANHGOSHLAB 07:53
PROVIDERS: PCP Nurse Practitioner Family; Visit Provider Family Medicine
DX: D64.9 Anemia, unspecified (principal); N28.9 Disorder of kidney and ureter, unspecified; R74.01 Elevation of levels of liver transaminase levels
CPT/HCPCS: 36415; 80053; 82607; 82728; 82746; 83540; 83550

== ENCOUNTER 2024-11-28 14:34 | Outpatient (CLI) | payer BC, SELFPAY ==
--- OUTSIDE RECORDS SUMMARY | 2024-11-28 14:37 | XMS_ITS | Clinical Summary ---
Author Organization [facility] Address [address] [place] [address] Phone Care Team Providers Care Wood Getter Name Role Phone Provider, None Primary Care [...] by Per NG tube route daily. Active [place]-3 Fatty Acids (FISH OIL PO) Take by mouth. Activ e fluticasone (FLONASE) 50 MCG/ACT Suspension 1 [place] by Nasal route daily. Use in each [...] Gastroesophageal reflux disease 07/06/2016 Abnormal EKG 07/06/2016 Immunizations Immunization Administration Dates Next Due Covid-19, Mrna, Lnp-s, Pf, 3 0 Mcg/0.3 Ml Dose ([employer]) 05/07/2020,04/16/2020 Influenza Vaccine greater than 3 yrs [...] (HCV) Screening Completed 02/19/2018 SARS-COV-2 Immunization Completed 11/23/19, 04/21/2023, 01/21/2021, Additional history exists Human Papillomavirus (HPV) Immunization Aged Out No longer eligible based on patient's age to complete this topic Meningococcal Immunization (ACWY) Aged Out No longer eligible based on patient's age to complete this topic Rotavirus Immunization Aged Out No lo nger eligible based on patient's age to complete this topic Procedures Procedure Name Priority Date/Time Associated Diagnosis Comments [facility] SCREENING BILATERAL DIGITAL W CAD W SURESH Routine 07/06/2023 12:26 PM CDT Visit for screening mammogram HEMOGLOBIN A1C W/ ESTIMATED GLUCOSE Routine 03/02/2022 3:32 PM HEAD SCORER Type 2 diabetes mellitus treated without insulin (HCC) CMP (COMPREHENSIVE METABOLIC PANEL) Routine 2020 9:30 AM CDT Hyperlipidemia, unspecified hyperlipidemia type HEPATITIS PANEL ACUTE (AHP) Routine 02/19/2018 4:29 PM HEAD SCORER Elevated liver enzymes from Last 3 Months or Most Recently Relevant to Health Maintenance Results * [facility] SCREENING BILATERAL DIGITAL W CAD W SURESH [...] to exams dated: 03/02/2022, 11/30/2020, and 12/03/2019 [facility]. BREAST TISSUE:There are scattered fibroglandular densities [...] exam. Electronically signed by: Morgan giordano/uma:07/06/2023 16:07:11 Citrix Administrator(s): RT Thalia(R)(M), [facility] letter sent: Normal Exam Reading location: [facility] BI-RADS: 1 Negative Procedure Note Morgan [...] to exams dated: 03/02/2022, 11/30/2020, and 12/03/2019 [facility]. BREAST TISSUE:There are scattered fibroglandular densities [...] exam. Electronically signed by: Morgan giordano/uma:07/06/2023 16:07:11 [employer] Administrator(s): Ashely Bui RT(R)(M), [facility] letter sent: Normal Exam Reading location: [facility] BI-RADS: 1 Negative Marcus Shannon MD IMG MAMMO ORDERABLES Nataliia l Result * (ABNORMAL) HEMOGLOBIN A1C W/ ESTIMATED GLUCOSE (03/02/2022 3:32 PM HEAD SCORER) HGB-A1C 6.3(H) 4.0 - 6.0 % 03/02/2022 4:18 PM HEAD SCORER [facility] Est Average Glucose 134.1 mg/dL 03/02/2022 4:18 PM HEAD SCORER [facility] Blood Venipuncture / Unknown 03/02/2022 3:32 PM HEAD SCORER 03/02/2022 3:32 PM HEAD SCORER Narrative [facility] - 03/02/2022 4:18 PM HEAD SCORER HEMOGLOBIN A1C: DIABETIC PATIENTS: WELL-CONTROLLED: 6.2 - 7.0 INTERMEDIATE WELL-CONTROLLED: 7.0 - 9.0 POORLY-CONTROLLED: >9.0 Result [facility] Marcus Shannon MD CHEMISTRY ORDERABLES Nataliia l Result [facility] [address] [place] [address] * (ABNORMAL) CMP (COMPREHENSIVE METABOLIC PANEL) (2020 9:30 AM CDT) SODIUM 138 136 - 144 mmol/L 2020 11:04 AM CDT [facility] POTASSIUM 4.1 3.5 - 5.1 mmol/L 2020 11:04 AM CDT [facility] CHLORIDE 101 100 - 110 mmol/L 2020 11:04 AM [facility] CO2, VENOUS 27 22 - 32 mmol/L 2020 11:04 AM [facility] ANION GAP 14.1 8.0 - 20.0 mmol/L 2020 11:04 AM [facility] GLUCOSE 117(H) 70 - 99 mg/dL 2020 11:04 AM [facility] BUN 13 6 - 20 mg/dL 2020 11:04 AM [facility] CREATININE, BLOOD 0.86 0.60 - 1.10 mg/dL 2020 11:04 AM [facility] BUN/CREATININE RATIO 15 12 - 20 ratio 2020 11:04 AM [facility] TOTAL PROTEIN 7.8 6.0 - 8.3 g/dL 2020 11:04 AM [facility] ALBUMIN 4.4 3.5 - 5.2 g/dL 2020 11:04 AM [facility] Comment: The colormetric methods used for the determination of Albumin may lead to falsely elevated test results in patients suffering from renal failure or insufficiency due to interference with other proteins. A/G RATIO 1.3 1.0 - 2.0 2020 11:04 AM [facility] CALCIUM 9.4 8.9 - 10.3 mg/dL 2020 11:04 AM [facility] T BILI 0.4 <=1.2 mg/dL 2020 11:04 AM [facility] SGOT (AST) 24 <=32 U/L 2020 11:04 AM [facility] SGPT (ALT) 24 <=41 U/L 2020 11:04 AM [facility] ALKALINE PHOSPHATASE 100 35 - 105 U/L 2020 11:04 AM CDT [facility] GFR, EST. NONAFRICAN >60 >=60 2020 11:04 AM CDT [facility] GFR, EST. >60 >=60 021 11:04 AM CDT [facility] Comment: Creatinine Clearance is the preferred criteria for selecting drug dose adjustments in renally impaired patients. The GFR is provided as additional pertinent clinical information. GFR is reported in mL/min/1.73 sq m. IS THE PATIENT REQUIRED TO BE FASTING? No 2020 11:04 AM CDT [facility] Blood Venipuncture / Unknown 2020 9:30 AM CDT 2020 10:28 AM CDT Marcus Shannon MD CHEMISTRY ORDERABLES Nataliia matos Result [facility] [address] [place] [address] * HEPATITIS PANEL ACUTE (AHP) (02/19/2018 4:29 PM HEAD SCORER) HEPATITIS A IGM ANTIBODY NON DETECTED NON DETECTED 02/19/2018 10:40 PM HEAD SCORER [facility] Comment: IGM Antibodies to HAV not detected. Does not exclude early acute or recovered HAV infection. HEP B CORE AB (IGM) NON DETECTED NON DETECTED 02/19/2018 10:40 PM HEAD SCORER [facility] Comment: IGM anti-HBC not detected. Does not exclude the possibility of exposure to or infection with HBV. HEPATITIS B SURFACE ANTIGEN NON DETECTED NON DETECTED 02/19/2018 10:40 PM HEAD SCORER [facility] Comment: A nonreactive test result does [...] antibody 0.08 <1 S/CO 02/19/2018 10:40 PM HEAD SCORER [facility] Comment: Signal/Cutoff ratio < 0.79 is Nondetected Signal/Cutoff ratio 0.80-0.99 is Grayzone Signal/Cutoff ratio > 0.99 is Detected Supplemental assays are recommended if signal/cutoff ratio is >/=1.00. Signal/cutoff ratio result >/= 5.00 is 97% predictive of positivity for recombinant immunoblot assay (RIBA) and will be reported to the [place] Department of Public Health as required. Blood specimen (specimen) Venipuncture / Unknown 02/19/2018 4:29 PM HEAD SCORER 02/19/2018 4:37 PM HEAD SCORER us Marcus Shannon MD HEMATOLOGY ORDERABLES Fin al Result [facility] [address] [place] [address], from Last 3 Months or Most Recently Relevant to Health Maintenance Insurance Care Teams Wood Getter Relationship Specialty Start Date End Date Provider, None [place] PCP - General 07/26/24
--- OUTSIDE RECORDS SUMMARY | 2024-11-28 14:37 | XMS_ITS | Encounter Summary ---
Author Organization [facility] Address [address] [place] [address] Phone Care Team Providers Care Station Attendant Name Role Phone Marcus Shannon MD Primary Care Provider [phone] Provider, None Primary Care Provider Unavailabl e Reason for Visit * Reason Comments Medication Refill Encounter Details Date Type Department Care Team (Late st Contact Info) Description 02/20/2020 Refill [facility] [address] [place] [address] Marcus Shannon MD [address] [address] Medication Refill Social History Tobacco Use Types [...] CST MyChart message was sent to patient. MAKER * Telephone Encounter - Nicole Hays RN - 02/20/2020 1:07 PM CST Patient needs appointment. MAKER documented in this encounter Plan of Treatment Not on file documented as of this encounter Visit Diagnoses Not on filedocumented in this encounter Additional Health Concerns Assessment Noted Time PHQ-9 Depression Total Score: 0 02/19/19 19 3:00 PM TAPE MAKER documented as of this encounter Care Teams Station Attendant Relationship Specialty Start Date End Date Marcus Shannon MD #[address] [address] PCP - General Family Medicine 07/06/16 07/25/24 Provider, None [place] PCP - General 07/26/24 documented as of this encounter
--- OUTSIDE RECORDS SUMMARY | 2024-11-28 14:37 | XMS_ITS | Encounter Summary ---
Author Organization [facility] Address [address] [place] [address] Phone Care Team Providers Care Club Waiter/Waitress Name Role Phone Marcus Shannon MD Primary Care Provider [phone] Provider, None Primary Care Provider Unavailabl e Reason for Visit * Reason Comments Medication Refill Encounter Details Date Type Department Care Team (Late st Contact Info) Description 01/16/2023 Refill [facility] [address] [place] [phone] Marcus Shannon MD #[address] [address] Medication Refill Social History Tobacco Use Types [...] Bennett 03/02/22 Office Visit Marcus Shannon MD [facility] Donald Showing recent visits within past 365 days and meeting all other requirements Future Appointments No visits were found meeting these conditions. Showing future appointments within next 90 days and meeting all other requirements ORMANCE TEST ARCHITECT documented in this encounter Plan of Treatment Not on file documented as of this encounter Visit Diagnoses Not on filedocumented in this encounter Additional Health Concerns Assessment Noted Time PHQ-9 Depression Total Score: 0 05/08/19 9:00 AM CDT documented as of this encounter Care Teams Club Waiter/Waitress Relationship Specialty Start Date End Date Marcus Shannon MD #[address] [address] PCP - General Family Medicine 07/06/16 07/25/24 Provider, None [place] PCP - General 07/26/24 documented as of this encounter
--- OUTSIDE RECORDS SUMMARY | 2024-11-28 14:37 | XMS_ITS | Encounter Summary ---
Author Organization [facility] Address [address] [place] [address] Phone Care Team Providers Care Professional Model Name Role Phone Marcus Shannon MD Primary Care Provider [phone] Provider, None Primary Care Provider Unavailabl e Reason for Visit * Reason Comments Medication Refill Encounter Details Date Type Department Care Team (Late st Contact Info) Description 04/05/2023 Refill [facility] [place] [phone] Marcus Shannon MD #[address] [address] Medication Refill Social History Tobacco Use Types [...] Provider Dept 04/19/23 Appointment Marcus Shannon MD [facility] Showing future appointments within next 90 days and meeting all other requirements E/MATERIALS EXCHANGE SPECIALIST documented in this encounter Plan of Treatment Not on file documented as of this encounter Visit Diagnoses Not on filedocumented in this encounter Additional Health Concerns Assessment Noted Time PHQ-9 Depression Total Score: 0 05/08/19 21 9:00 AM CDT documented as of this encounter Care Teams Professional Model Relationship Specialty Start Date End Date Marcus Shannon MD #[address] [address] PCP - General Family Medicine 07/06/16 07/25/24 Provider, None [place] PCP - General 07/26/24 documented as of this encounter
--- OUTSIDE RECORDS SUMMARY | 2024-11-28 14:37 | XMS_ITS | Clinical Summary ---
Author Organization [facility] Address [address] [place] [address] Care Team Providers Care Census Clerk Name Role Phone Mary Jo Ellis MD Primary Care Provider +1- [phone] Source Comments [facility],non-owned Affiliates and Associated Physician Practices is amultiple site organization consisting of ambulatory clinics and hospital sitesin [place], [place], [place] and [place]. This disclosure is being madepursuant to the Care Everywhere program and may not contain all information available regarding this patient. Last updated 17.[facility] [employer] Social History Tobacco Use Types Packs/Day Years Used Date Smoking Tobacco: Never Assessed Comments No Sex and Gender Information Value Date Recorded Sex Assigned at Not on file Legal Sex Female 9:46 AM SOLUTIONS ANALYST Gender Identity Not on file Sexual Orientation [...] 11/04/1982 DTAP/TDAP/TD VACCINES (1 - Tdap) 11/09/1983 PNEUMOCOCCAL VACCINE 50+ (1 of 1 - PCV) 2014 ZOSTER VACCINE (1 of 2) 2014 MAMMOGRAM 09/11/2015 09/10/2013 DEPRESSION SCREENING 02/06/2024 COVID-19 VACCINE (2023-2 5 season) 2024 INFLUENZA VACCINE (#1) 2024 Respiratory Syncytial Virus (RSV) Vaccine Pt: or over 60 yrs (1 - 1-dose 75+ series) 11/09/2039 HEPATITIS B VACCINE Aged Out No longe r eligible based on patient's age to complete this topic HIB VACCINE Aged Out No longer eligi [...] Digital screening mammogram on 09/10/2013. PRIOR: 2012 [facility] now available FINDINGS: Computer assisted detection was utilized. The tissue density is predominantly fatty. There is no significant change since the prior mammogram. ASSESSMENT: BIRADS Category 1: Negative mammogram. RECOMMENDATION: Follow up in one year. Thank you for allowing us to participate in the care of your patient. [facility] utilizes [employer] as a reminder system to notify patients of their next recommended mammogram. us Lauren Jacobson MD MAMMO ORDERABLES Final Resu lt from Last 3 Months or Most Recently Relevant to Health Maintenance Insurance ANTHEM ANTHEM ANTHEM Care Teams Census Clerk Relationship Specialty Start Date End Date Mary Jo Ellis MD [address] [place] [address] PCP - General 03/06/18
--- OUTSIDE RECORDS SUMMARY | 2024-11-28 14:37 | XMS_ITS | Encounter Summary ---
Author Organization [facility] Address [address] [place] [address] Care Team Providers Care Die Casting Machine Operator Name Role Phone Mary Jo Ellis MD Primary Care Provider +1- [phone] Encounter Details Date Type Department Care Team (Late st Contact Info) Description 07/15/2019 Lab Requisition [facility] [address] [place] [address] Gerardo Bedoya MD Social History Tobacco Use Types Packs/Day Years Used Date Smoking Tobacco: Never Assessed Comments No Sex and Gender Information Value Date Recorded Sex Assigned at Not on file Legal Sex Female 9:46 AM EVENT DECORATOR AND DESIGNER Gender Identity Not on file Sexual Orientation [...] Not detected, Invalid 07/15/2019 11:[address] [facility]CRO[facility] Microbiology SPECIMEN FROM NASOPHARYNGEAL STRUCTURE / Unknown Collection / Unknown 07/15/2019 8:30 AM CDT 07/15/2019 3:[address] [facility] - 07/15/2019 11:24 PM CDT This Real Time RT-PCR assay was developed and its performance characteristics determined by [facility]. This test has been [...] LAB - MICROBIOLOGY ORDERABL ES Final Result [facility] [address] [place] [address], [facility] [phone] documented in this encounter Visit Diagnoses Not on filedocumented in this encounter Additional Health Concerns Infection Onset Date Last Indicated Resolved Time COVID-19 Under Investigation 07/15/2019 07/15/2019 07/15/2019 11:24 PM CDT COVID-19 Under Investigation 08/22/2019 08/20/2019 08/22/2019 10:10 PM CDT documented as of this encounter Care Teams Die Casting Machine Operator Relationship Specialty Start Date End Date Mary Jo Ellis MD [address] [place] [address] PCP - General 03/06/18 documented as of this encounter
--- OUTSIDE RECORDS SUMMARY | 2024-11-28 14:37 | XMS_ITS | Encounter Summary ---
Author Organization [facility] Address [address] [place] [address] Phone Care Team Providers Care Magnetic Resonance Technologist Name Role Phone Marcus Shannon MD Primary Care Provider +1 -[phone] Provider, None Primary Care Provider Unavailabl e Reason for Visit * Reason Comments Medication Refill Encounter Details Date Type Department Care Team (Late st Contact Info) Description 08/31/2021 Refill [facility] - Family Medicine [facility] [address] [place] [id number] Marcus Shannon MD [address] [address] Medication Refill Social History Tobacco Use Types [...] (TOPROL-XL) 50 MG TABLET SR 24 HR [[id number]] 8 Status: Active Mode: Ordering in Standing Orders mode Communicated by: Nicole Hays RN Ordering user: Nicole Hays RN 08/15/21930 Ordering provider: Marcus Shannon MD Authorized by: Marcus Shannon MD Frequency: ??08/15/21 - Until Discontinued Released by: Nicole Hays RN 08/15/[address] documented in this encounter Plan of Treatment Not on file documented as of this encounter Visit Diagnoses Not on filedocumented in this encounter Additional Health Concerns Assessment Noted Time PHQ-9 Depression Total Score: 0 05/08/19 21 9:00 AM CDT documented as of this encounter Care Teams Magnetic Resonance Technologist Relationship Specialty Start Date End Date Marcus Shannon MD [address] [address] PCP - General Family Medicine 07/06/16 07/25/24 Provider, None [place] PCP - General 07/26/24 documented as of this encounter
--- OUTSIDE RECORDS SUMMARY | 2024-11-28 14:37 | XMS_ITS | Encounter Summary ---
Author Organization [facility] Address [address] [place] [address] Phone Care Team Providers Care Intensive Care Unit Nurse Name Role Phone Marcus Shannon MD Primary Care Provider +1 -[phone] Provider, None Primary Care Provider Unavailabl e Reason for Visit * Reason Comments Medication Refill Encounter Details Date Type Department Care Team (Late st Contact Info) Description 05/16/2023 Refill [facility] Family [facility] [address] [place] [address] Marcus Shannon MD [address] [address] Medication Refill Social History Tobacco Use Types [...] documented as of this encounter Care Teams Intensive Care Unit Nurse Relationship Specialty Start Date End Date Marcus Shannon MD [address] [address] PCP - General Family Medicine 07/06/16 07/25/24 Provider, None [place] PCP - General 07/26/24 documented as of this encounter
--- OUTSIDE RECORDS SUMMARY | 2024-11-28 14:37 | XMS_ITS | Encounter Summary ---
Author Organization [facility] Address [address] [place] [address] Phone Care Team Providers Care Carpet Sewing Machine Operator Name Role Phone Marcus Shannon MD Primary Care Provider +1 -[phone] Provider, None Primary Care Provider Unavailabl e Reason for Visit * Reason Comments Medication Refill Encounter Details Date Type Department Care Team (Late st Contact Info) Description 04/25/2020 Refill [facility] Medicine [facility] #2 [place] [id number] Marcus Shannon MD [address] [address] Medication Refill Social History Tobacco Use Types [...] COVID-19? No / Unsure 04/13/2020 12:40 PM ASSISTANT MANAGER/EMBALMER documented as of this encounter Miscellaneous Notes [...] Outpatient Visits 1 year ago Essential hypertension [facility] Marcus Maher MD 1 year ago Hyperglycemia [facility] Marcus Maher MD 2 years ago Essential hypertension [facility] Marcus Maher MD 3 years ago Non morbid obesity, unspecified obesity type [facility] Marcus Maher MD Upcoming Appointments Future Appointments In 1 week Marcus Shannon MD [facility] PHOTOGRAPHIC PROCESSOR - Recent and Past Visits Recent Visits No visits were found meeting these conditions. Showing recent visits within past 460 days with a meds authorizing provider and meeting all other requirements Future Appointments Date Type Provider Dept 05/07/20 Appointment Marcus Shannon MD [facility] Showing future appointments within next 90 days [...] Total Score: 0 02/19/19 19 3:00 PM ASSISTANT MANAGER/EMBALMER documented as of this encounter Care Teams Carpet Sewing Machine Operator Relationship Specialty Start Date End Date Marcus Shannon MD [address] [address] PCP - General Family Medicine 07/06/16 07/25/24 Provider, None [place] PCP - General 07/26/24 documented as of this encounter
--- OUTSIDE RECORDS SUMMARY | 2024-11-28 14:37 | XMS_ITS | Encounter Summary ---
Author Organization [facility] Address [address] [place] [address] Phone Care Team Providers Care Speech Pathologist Assistant Name Role Phone Marcus Shannon MD Primary Care Provider +1 -[phone] Provider, None Primary Care Provider Unavailabl e Reason for Visit * Reason Comments Medication Refill Encounter Details Date Type Department Care Team (Late st Contact Info) Description 06/20/2024 Refill [facility] [address] [place] [address] Marcus Shannon MD [address] [address] Medication Refill Social History Tobacco Use Types [...] documented as of this encounter Care Teams Speech Pathologist Assistant Relationship Specialty Start Date End Date Marcus Shannon MD [address] [address] PCP - General Family Medicine 07/06/16 07/25/24 Provider, None [place] PCP - General 07/26/24 documented as of this encounter
--- OUTSIDE RECORDS SUMMARY | 2024-11-28 14:37 | XMS_ITS | Encounter Summary ---
Author Organization [facility] Address [address] [place] [address] Phone Care Team Providers Care Applications Engineer Name Role Phone Marcus Shannon MD Primary Care Provider +1 -[phone] Provider, None Primary Care Provider Unavailabl e Reason for Visit * Reason Comments Medication Refill Encounter Details Date Type Department Care Team (Late st Contact Info) Description 03/02/2023 Refill [facility] #2 [place] [address] Marcus Shannon MD #[address] [address] Medication Refill Social History Tobacco Use Types [...] Payton Saeed RMA - 03/06/2023 1:44 PM SUPERVISOR SAMPLE PREPARATION scheduled RVISOR SAMPLE PREPARATION * Telephone Encounter - Nicole Hays RN - 03/02/2023 3:05 PM CST Needs OV with PCP RVISOR SAMPLE PREPARATION * Telephone Encounter - Nicole Hays RN [...] 6 months No results found for: GFRA RVISOR SAMPLE PREPARATION documented in this encounter Plan of Treatment Not on file documented as of this encounter Visit Diagnoses Not on filedocumented in this encounter Additional Health Concerns Assessment Noted Time PHQ-9 Depression Total Score: 0 05/08/19 21 9:00 AM CDT documented as of this encounter Care Teams Applications Engineer Relationship Specialty Start Date End Date Marcus Shannon MD [address] [place] [id number] PCP - General Family Medicine 07/06/16 07/25/24 Provider, None [place] PCP - General 07/26/24 documented as of this encounter
--- OUTSIDE RECORDS SUMMARY | 2024-11-28 14:37 | XMS_ITS | Encounter Summary ---
Author Organization [facility] Address [address] [place] [address] Phone Care Team Providers Care Physical Metallurgist Name Role Phone Marcus Shannon MD Primary Care Provider +1 -[phone] Provider, None Primary Care Provider Unavailabl e Reason for Visit * Reason Comments Medication Refill Encounter Details Date Type Department Care Team (Late st Contact Info) Description 07/25/2023 Refill [facility] Family Medicine [facility] #2 [place] [address] Marcus Shannon MD #[address] [address] Medication Refill Social History Tobacco Use Types [...] documented as of this encounter Care Teams Physical Metallurgist Relationship Specialty Start Date End Date Marcus Shannon MD #[address] [address] PCP - General Family Medicine 07/06/16 07/25/24 Provider, Maryan [place] PCP - General 07/26/24 documented as of this encounter
--- OUTSIDE RECORDS SUMMARY | 2024-11-28 14:37 | XMS_ITS | Encounter Summary ---
Author Organization [facility] Address [address] [place] [address] Phone Care Team Providers Care Manufacturing Supervisor 2Nd Shift Name Role Phone Provider, None Primary Care Provider Unavailabl e Reason for Visit * Reason Comments Medication Refill Encounter Details Date Type Department Care Team (Late st Contact Info) Description 08/01/2024 Refill [facility] Medicine [facility] #2 [place] [address] Marcus Shannon MD [address] [address] Medication Refill Social History Tobacco Use Types [...] documented as of this encounter Care Teams Manufacturing Supervisor 2Nd Shift Relationship Specialty Start Date End Date Provider, None [place] PCP - General 07/26/24 documented as of this encounter
--- OUTSIDE RECORDS SUMMARY | 2024-11-28 14:37 | XMS_ITS | Encounter Summary ---
Author Organization [facility] Address [address] [place] [address] Care Team Providers Care Supervisor Tree Fruit And Nut Farming Name Role Phone Mary Jo Ellis MD Primary Care Provider +1- [phone] Encounter Details Date Type Department Care Team (Late st Contact Info) Description 08/22/2019 Lab Requisition [facility] [address] [place] [address] Gerardo Bedoya MD Social History Tobacco Use Types Packs/Day Years Used Date Smoking Tobacco: Never Assessed Comments No Sex and Gender Information Value Date Recorded Sex Assigned at Not on file Legal Sex Female 9:46 AM DIRECTOR OF HEALTH CARE MARKETING Gender Identity Not on file Sexual Orientation [...] Not detected, Invalid 08/22/2019 10:10 PM CDT [facility]CROBI[facility] Microbiology SPECIMEN FROM NASOPHARYNGEAL STRUCTURE / Unknown Collection / Unknown 08/20/2019 8:00 AM CDT 08/22/2019 11:01 AM CDT Narrative [facility]CRO[facility] - 08/22/2019 10:10 PM CDT This Real Time RT-PCR assay was developed and its performance characteristics determined by [facility]. This test has been [...] LAB - MICROBIOLOGY ORDERABL ES Final Result [facility] [address] [place] [address], [facility] [phone] documented in this encounter Visit Diagnoses Not on filedocumented in this encounter Additional Health Concerns Infection Onset Date Last Indicated Resolved Time COVID-19 Under Investigation 08/22/2019 08/20/2019 08/22/2019 10:10 PM CDT documented as of this encounter Care Teams Supervisor Tree Fruit And Nut Farming Relationship Specialty Start Date End Date Mary Jo Ellis MD [facility] [place] [address] PCP - General 03/06/18 documented as of this encounter
--- OUTSIDE RECORDS SUMMARY | 2024-11-28 14:37 | XMS_ITS | Encounter Summary ---
Author Organization [facility] Address [address] [place] [address] Phone Care Team Providers Care Food Service Tray Attendant Name Role Phone Marcus Shannon MD Primary Care Provider [phone] -[phone] Provider, None Primary Care Provider Unavailabl e Reason for Visit * Reason Comments Medication Refill Encounter Details Date Type Department Care Team (Late st Contact Info) Description 04/21/2023 Refill [facility] Family Medicine [facility] #2 [place] [address] Marcus Shannon MD #[address] [address] Medication Refill Social History Tobacco Use Types [...] Dept 04/19/23 Office Visit Marcus Shannon MD [facility] 06/15/22 Office Visit Paul Russ APRN, BED SPRING MAKER [facility] Showing recent visits within past 365 days [...] as of this encounter Care Teams Food Service Tray Attendant Relationship Specialty Start Date End Date Marcus Shannon MD #[address] [address] PCP - General Family Medicine 07/06/16 07/25/24 Provider, None [place] PCP - General 07/26/24 documented as of this encounter
--- OUTSIDE RECORDS SUMMARY | 2024-11-28 14:37 | XMS_ITS | Encounter Summary ---
Author Organization [facility] Address [address] [place] [address] Phone Care Team Providers Care Active Directory Specialist Name Role Phone Provider, None Primary Care Provider Unavailabl e Reason for Visit * Reason Comments Medication Refill Encounter Details Date Type Department Care Team (Late st Contact Info) Description 08/20/2024 Refill [facility] Family Medicine [facility] #[address] [place] [address] Marcus Shannon MD #[address] [address] Medication Refill Social History Tobacco Use Types [...] documented as of this encounter Care Teams Active Directory Specialist Relationship Specialty Start Date End Date Provider, None [place] PCP - General 07/26/24 documented as of this encounter
[2024-11-28 18:16] LABS: Alanine Aminotransferase 23 U/L (6-35); Albumin Level 4.6 g/dL (3.5-5.1); Alkaline Phosphatase 122 U/L (38-126); Anion Gap 11 mmol/L (4-12); Aspartate Amino Transferase 59 U/L (14-36); Bilirubin,Total 0.5 mg/dL (0.2-1.3); Blood Urea Nitrogen 21 mg/dL (7-17); Calcium 10.0 mg/dL (8.4-10.2); Carbon Dioxide 26 mmol/L (22-30); Chloride 103 mmol/L (98-107); Estimated Glomerular Filt Rate 50; Glucose 94 mg/dL (65-110); Potassium 4.2 mmol/L (3.4-5.0); Sodium 140 mmol/L (137-145); Total Protein 9.2 g/dL (6.3-8.2)
== END 2024-11-28 14:35 | disposition home or self-care (01) ==
LOC: ANHGOSHLAB 14:35
PROVIDERS: PCP Nurse Practitioner Family; Visit Provider Family Medicine
DX: N28.9 Disorder of kidney and ureter, unspecified (principal)
CPT/HCPCS: 36415; 80053

== ENCOUNTER 2024-12-19 07:57 | Outpatient (CLI) | payer BC, SELFPAY ==
--- OUTSIDE RECORDS SUMMARY | 2000-11-09 18:00 | XMS_ITS | Continuity of Care Document ---
Author Organization Formerly [facility] Address [address] [place] [address] Phone Care Team Providers Care Ben Day Artist Name Role Phone Tom OD, Bert Unavailable Unavailable Advance Directives Directive Yes / No Effective Date File Name No Information Encounters Encounter Description Practice Location Reason(s) For Visit Diagnoses Date Provider Providers Copied on Encounter Formerly [facility], [address], [place], [place], [id number], [place] tel:[phone] [facility] No Information Oct-0 6-200 1 Tom OD Bert. [address] , [address], [place], [address], [place]. tel:[phone] Family History Family Member Type Diagnosis Age At Onset No Information Payers Payer name Insurance type Covered constitution party ID Authoriza tion(s) No Information Social History Type Description Quantity Date Captured Comments Sex Female Smoking Status No Information Chief Complaint And Reason For Visit No Information Reason For Referral Reason For Referral No Information History Of Present Illness Encounter Date Complaint History Of Prese nt Illness No Information Functional Status Date Functional Assessmen t No Information Instructions Date Instruction Additional Infor mation No Information Assessments Type Assessment Date No Information Patient Care Teams Name Effective Dates (start - stop) Status Members No Information
--- OUTSIDE RECORDS SUMMARY | 2024-12-19 08:00 | XMS_ITS | Encounter Summary ---
Author Organization [facility] Address [address] [place] [address] Phone Care Team Providers Care Machine Crater Name Role Phone Marcus Shannon MD Primary Care Provider [phone] -[phone] Provider, None Primary Care Provider Unavailabl e Reason for Visit * Reason Comments Medication Refill Encounter Details Date Type Department Care Team (Late st Contact Info) Description 01/16/2023 Refill [facility] - Family Medicine - [place] #2 [place] [address] Marcus Shannon MD [address] [address] Medication Refill Social History Tobacco Use Types [...] Bennett 03/02/22 Office Visit Marcus Shannon MD [facility] Donald Showing recent visits within past 365 days and meeting all other requirements Future Appointments No visits were found meeting these conditions. Showing future appointments within next 90 days and meeting all other requirements E MOUNTER documented in this encounter Plan of Treatment Not on file documented as of this encounter Visit Diagnoses Not on filedocumented in this encounter Additional Health Concerns Assessment Noted Time PHQ-9 Depression Total Score: 0 05/08/19 9:00 AM CDT documented as of this encounter Care Teams Machine Crater Relationship Specialty Start Date End Date Marcus Shannon MD [address] [address] PCP - General Family Medicine 07/06/16 07/25/24 Provider, None [place] PCP - General 07/26/24 documented as of this encounter
--- OUTSIDE RECORDS SUMMARY | 2024-12-19 08:00 | XMS_ITS | Encounter Summary ---
Author Organization [facility] Address [address] [place] [address] Phone Care Team Providers Care Maintenance Shop Manager Name Role Phone Marcus Shannon MD Primary Care Provider +1 -[phone] Provider, None Primary Care Provider Unavailabl e Reason for Visit * Reason Comments Medication Refill Encounter Details Date Type Department Care Team (Late st Contact Info) Description 03/02/2023 Refill [facility] - Family Medicine - [place] #2 [place] [address] Marcus Shannon MD #[address] [address] Medication Refill Social History Tobacco Use Types [...] Payton Saeed RMA - 03/06/2023 1:44 PM YOUTH DEVELOPMENT PROFESSIONAL scheduled H DEVELOPMENT PROFESSIONAL * Telephone Encounter - Nicole Hays RN - 03/02/2023 3:05 PM CST Needs OV with PCP H DEVELOPMENT PROFESSIONAL * Telephone Encounter - Nicole Hays RN [...] 6 months No results found for: GFRA H DEVELOPMENT PROFESSIONAL documented in this encounter Plan of Treatment Not on file documented as of this encounter Visit Diagnoses Not on filedocumented in this encounter Additional Health Concerns Assessment Noted Time PHQ-9 Depression Total Score: 0 05/08/19 21 9:00 AM CDT documented as of this encounter Care Teams Maintenance Shop Manager Relationship Specialty Start Date End Date Marcus Shannon MD [address] [place] [id number] PCP - General Family Medicine 07/06/16 07/25/24 Provider, None [place] PCP - General 07/26/24 documented as of this encounter
--- OUTSIDE RECORDS SUMMARY | 2024-12-19 08:00 | XMS_ITS | Encounter Summary ---
Author Organization [facility] Address [address] [place] [address] Phone Care Team Providers Care Barrel Assembler Name Role Phone Provider, None Primary Care Provider Unavailabl e Reason for Visit * Reason Comments Medication Refill Encounter Details Date Type Department Care Team (Late st Contact Info) Description 08/20/2024 Refill [facility] - Family Medicine [facility] #2 [place] [address] Marcus Shannon MD #[address] [address] Medication Refill Social History Tobacco Use Types [...] documented as of this encounter Care Teams Barrel Assembler Relationship Specialty Start Date End Date Provider, None [place] PCP - General 07/26/24 documented as of this encounter
--- OUTSIDE RECORDS SUMMARY | 2024-12-19 08:00 | XMS_ITS | Encounter Summary ---
Author Organization [facility] Address [address] [place] [address] Phone Care Team Providers Care Junior Programmer Analyst Name Role Phone Marcus Shannon MD Primary Care Provider +1 -[phone] Provider, None Primary Care Provider Unavailabl e Reason for Visit * Reason Comments Medication Refill Encounter Details Date Type Department Care Team (Late st Contact Info) Description 06/20/2024 Refill [facility] - Family Medicine - [place] #2 [place] [address] Marcus Shannon MD #[address] [address] Medication Refill Social History Tobacco Use Types [...] documented as of this encounter Care Teams Junior Programmer Analyst Relationship Specialty Start Date End Date Marcus Shannon MD #[address] [address] PCP - General Family Medicine 07/06/16 07/25/24 Provider, None [place] PCP - General 07/26/24 documented as of this encounter
--- OUTSIDE RECORDS SUMMARY | 2024-12-19 08:00 | XMS_ITS | Encounter Summary ---
Author Organization [facility] Address [address] [place] [address] Phone Care Team Providers Care Consultant Teacher Name Role Phone Marcus Shannon MD Primary Care Provider +1 -[phone] Provider, None Primary Care Provider Unavailabl e Reason for Visit * Reason Comments Medication Refill Encounter Details Date Type Department Care Team (Late st Contact Info) Description 05/16/2023 Refill [facility] - Family Medicine - [place] #2 [place] [address] Marcus Shannon MD #[address] [address] Medication Refill Social History Tobacco Use Types [...] documented as of this encounter Care Teams Consultant Teacher Relationship Specialty Start Date End Date Marcus Shannon MD #[address] [address] PCP - General Family Medicine 07/06/16 07/25/24 Provider, None [place] PCP - General 07/26/24 documented as of this encounter
--- OUTSIDE RECORDS SUMMARY | 2024-12-19 08:00 | XMS_ITS | Encounter Summary ---
Author Organization [facility] Address [address] [place] [address] Phone Care Team Providers Care Technology Sales Specialist Name Role Phone Marcus Shannon MD Primary Care Provider [phone] [phone] Provider, None Primary Care Provider Unavailabl e Reason for Visit * Reason Comments Medication Refill Encounter Details Date Type Department Care Team (Late st Contact Info) Description 04/05/2023 Refill [facility] - [place] #2 [place] [address] Marcus Shannon MD [address] [address] Medication Refill Social History Tobacco Use Types [...] Provider Dept 04/19/23 Appointment Marcus Shannon MD [facility] Showing future appointments within next 90 days and meeting all other requirements GROOMER documented in this encounter Plan of Treatment Not on file documented as of this encounter Visit Diagnoses Not on filedocumented in this encounter Additional Health Concerns Assessment Noted Time PHQ-9 Depression Total Score: 0 05/08/19 21 9:00 AM CDT documented as of this encounter Care Teams Technology Sales Specialist Relationship Specialty Start Date End Date Marcus Shannon MD [address] [address] PCP - General Family Medicine 07/06/16 07/25/24 Provider, None [place] PCP - General 07/26/24 documented as of this encounter
--- OUTSIDE RECORDS SUMMARY | 2024-12-19 08:00 | XMS_ITS | Encounter Summary ---
Author Organization [facility] Address [address] [place] [address] Phone Care Team Providers Care Ethical Hacker Name Role Phone Provider, None Primary Care Provider Unavailabl e Reason for Visit * Reason Comments Medication Refill Encounter Details Date Type Department Care Team (Late st Contact Info) Description 08/01/2024 Refill [facility] [place] [address] Marcus Shannon MD #[address] [address] Medication Refill Social History Tobacco Use Types [...] documented as of this encounter Care Teams Ethical Hacker Relationship Specialty Start Date End Date Provider, None [place] PCP - General 07/26/24 documented as of this encounter
--- OUTSIDE RECORDS SUMMARY | 2024-12-19 08:00 | XMS_ITS | Encounter Summary ---
Author Organization [facility] Address [address] [place] [address] Phone Care Team Providers Care President College Or University Name Role Phone Marcus Shannon MD Primary Care Provider [phone] [phone] Provider, None Primary Care Provider Unavailabl e Reason for Visit * Reason Comments Medication Refill Encounter Details Date Type Department Care Team (Late st Contact Info) Description 04/21/2023 Refill [facility] - [place] #2 [place] [address] Marcus Shannon MD #[address] [address] Medication Refill Social History Tobacco Use Types [...] Dept 04/19/23 Office Visit [facility] 06/15/22 Office Visit Paul Russ APRN, PRINTING SALES REPRESENTATIVE [facility] Showing recent visits within past 365 [...] documented as of this encounter Care Teams President College [employer] University Relationship Specialty Start Date End Date Marcus Shannon MD #[address] [address] PCP - General Family Medicine 07/06/16 07/25/24 Provider, None [place] PCP - General 07/26/24 documented as of this encounter
--- OUTSIDE RECORDS SUMMARY | 2024-12-19 08:01 | XMS_ITS | Encounter Summary ---
Author Organization [facility] Address [address] [place] [address] Phone Care Team Providers Care Lock Expert Name Role Phone Marcus Shannon MD Primary Care Provider [phone] [phone] Provider, None Primary Care Provider Unavailabl e Reason for Visit * Reason Comments Medication Refill Encounter Details Date Type Department Care Team (Late st Contact Info) Description 07/25/2023 Refill [facility] - [place] #2 [place] [address] Marcus Shannon MD #[address] [address] Medication Refill Social History Tobacco Use Types [...] Dept 04/19/23 Office Visit Marcus Shannon MD [facility] Showing recent visits within past 365 days [...] documented as of this encounter Care Teams Lock Expert Relationship Specialty Start Date End Date Marcus Shannon MD #[address] [address] PCP - General Family Medicine 07/06/16 07/25/24 Provider, None [place] PCP - General 07/26/24 documented as of this encounter
--- OUTSIDE RECORDS SUMMARY | 2024-12-19 08:01 | XMS_ITS | Encounter Summary ---
Author Organization [facility] Address [address] [place] [address] Phone Care Team Providers Care Industrial Furnace Fabricator Name Role Phone Marcus Shannon MD Primary Care Provider [phone] [phone] Provider, None Primary Care Provider Unavailabl e Reason for Visit * Reason Comments Medication Refill Encounter Details Date Type Department Care Team (Late st Contact Info) Description 02/20/2020 [facility]ill [facility] [address] [place], [place] [id number] Marcus Shannon MD #[address] [address] Medication Refill Social History Tobacco Use Types [...] Ravi CMA - 02/23/2020 8:23 AM CST [employer] message was sent to patient. NICAL SUPPORT ENGINEER * Telephone Encounter - Nicole Hays RN - 02/20/2020 1:07 PM CST Patient needs appointment. NICAL SUPPORT ENGINEER documented in this encounter Plan of Treatment Not on file documented as of this encounter Visit Diagnoses Not on filedocumented in this encounter Additional Health Concerns Assessment Noted Time PHQ-9 Depression Total Score: 0 02/19/19 19 3:00 PM TECHNICAL SUPPORT ENGINEER documented as of this encounter Care Teams Industrial Furnace Fabricator Relationship Specialty Start Date End Date Marcus Shannon MD #[address] [address] PCP - General Family Medicine 07/06/16 07/25/24 Provider, None [place] PCP - General 07/26/24 documented as of this encounter
--- OUTSIDE RECORDS SUMMARY | 2024-12-19 08:01 | XMS_ITS | Clinical Summary ---
Author Organization [facility] Address [address] [place] [address] Phone Care Team Providers Care Ep Specialist Name Role Phone Provider, None Primary [...] by Per NG tube route daily. Active [place]-3 Fatty Acids (FISH OIL PO) Take by mouth. Activ e fluticasone (FLONASE) 50 MCG/ACT Suspension 1 [place] by Nasal route daily. Use in each [...] Lnp-s, Pf, 3 0 Mcg/0.3 Ml Dose ([employer]) 05/07/2020,04/16/2020 Influenza Vaccine greater than 3 yrs [...] Diabetes: Foot Exam 1965 TdaP Immunization 1965 Pneumococcal Immunization (50+ years) (1 of 2 [...] (#1) 10/06/202411/05, 01/05/2022, 01/05/2022, Additional history exists SARS-COV-2 Immunization ( season) 2024 11/23/2023, 04/21/2023, 01/21/2021, Additional history exists Respiratory Syncytial Virus (RSV) Immunization (Adult) (1 - 1-dose 75+ series) 11/09/2039 DTaP/Tdap/Td Immunization Discontinued 11/16/2008 Hepatitis C Virus (HCV) Screening Completed 02/19/2018 Hepatitis B Immunization Aged Out No longer eligible based on patient's age to complete this topic Human Papillomavirus (HPV) Immunization Aged Out No [...] W/ ESTIMATED GLUCOSE Routine 03/02/2022 3:32 PM ERGONOMIST Type 2 diabetes mellitus treated without insulin (HCC) CMP (COMPREHENSIVE METABOLIC PANEL) Routine 2020 9:30 AM CDT Hyperlipidemia, unspecified hyperlipidemia type HEPATITIS PANEL ACUTE (AHP) Routine 02/19/2018 4:29 PM ERGONOMIST Elevated liver enzymes from Last 3 Months [...] to exams dated: 03/02/2022, 11/30/2020, and 12/03/[address] [facility]. BREAST TISSUE:There are scattered fibroglandular densities in [...] exam. Electronically signed by: Morgan giordano/uma:07/06/2023 16:07:11 Dramatic Reader(s): RT Thalia(R)(M), [facility] letter sent: Normal Exam Reading location: [facility] BI-RADS: 1 Negative Procedure Note Morgan [...] to exams dated: 03/02/2022, 11/30/2020, and 12/03/[address] [facility]. BREAST TISSUE:There are scattered fibroglandular densities in [...] exam. Electronically signed by: Morgan giordano/uma:07/06/2023 16:07:11 Dramatic Reader(s): RT Thalia(R)(M), [facility] letter sent: Normal Exam Reading location: [facility] BI-RADS: 1 Negative Marcus Shannon MD IMG MAMMO ORDERABLES Nataliia l Result * (ABNORMAL) HEMOGLOBIN A1C W/ ESTIMATED GLUCOSE (03/02/2022 3:32 PM ERGONOMIST) HGB-A1C 6.3(H) 4.0 - 6.0 % 03/02/2022 4:[address] [facility] Est Average Glucose 134.1 mg/dL 03/02/2022 4:[address] [facility] Blood Venipuncture / Unknown 03/02/2022 3:32 PM ERGONOMIST 03/02/2022 3:[address] [facility] - 03/02/2022 4:18 PM ERGONOMIST HEMOGLOBIN A1C: DIABETIC PATIENTS: WELL-CONTROLLED: 6.2 - 7.0 INTERMEDIATE WELL-CONTROLLED: 7.0 - 9.0 POORLY-CONTROLLED: >9.0 Marcus Shannon MD CHEMISTRY ORDERABLES Nataliia l Result [facility] #[address] [place] [address] * (ABNORMAL) CMP (COMPREHENSIVE METABOLIC PANEL) (2020 9:30 AM CDT) SODIUM 138 136 - 144 mmol/L 2020 11:[address] [facility] POTASSIUM 4.1 3.5 - 5.1 mmol/L 2020 11:04 AM [facility] CHLORIDE 101 100 - 110 mmol/L 2020 11:04 AM [facility] CO2, VENOUS 27 22 - 32 mmol/L 2020 11:04 AM [facility] ANION GAP 14.1 8.0 - 20.0 mmol/L 2020 11:04 AM [facility] GLUCOSE 117(H) 70 - 99 mg/dL 2020 11:04 AM [facility] BUN 13 6 - 20 mg/dL 2020 11:04 AM [facility] CREATININE, BLOOD 0.86 0.60 - 1.10 mg/dL 2020 11:04 AM [facility] BUN/CREATININE RATIO 15 12 - 20 ratio 2020 11:04 AM [facility] TOTAL PROTEIN 7.8 6.0 - 8.3 g/dL 2020 11:04 AM [facility] ALBUMIN 4.4 3.5 - 5.2 g/dL 2020 11:04 AM [facility] Comment: The colormetric methods used for the determination of Albumin may lead to falsely elevated test results in patients suffering from renal failure or insufficiency due to interference with other proteins. A/G RATIO 1.3 1.0 - 2.0 2020 11:04 AM [facility] CALCIUM 9.4 8.9 - 10.3 mg/dL 2020 11:04 AM [facility] T BILI 0.4 <=1.2 mg/dL 2020 11:04 AM [facility] SGOT (AST) 24 <=32 U/L 2020 11:04 AM [facility] SGPT (ALT) 24 <=41 U/L 2020 11:04 AM [facility] ALKALINE PHOSPHATASE 100 35 - 105 U/L 2020 11:[address] [facility] GFR, EST. NONAFRICAN >60 >=60 2020 11:[address] [facility] GFR, EST. >60 >=60 021 11:[address] [facility] Comment: Creatinine Clearance is the preferred criteria for selecting drug dose adjustments in renally impaired patients. The GFR is provided as additional pertinent clinical information. GFR is reported in mL/min/1.73 sq m. IS THE PATIENT REQUIRED TO BE FASTING? No 2020 11:[address] [facility] Blood Venipuncture / Unknown 2020 9:30 AM CDT 2020 10:28 AM CDT Marcusemeterio Shannon MD CHEMISTRY ORDERABLES Nataliia l Result [facility] [address] [place] [address] * HEPATITIS PANEL ACUTE (AHP) (02/19/2018 4:29 PM ERGONOMIST) HEPATITIS A IGM ANTIBODY NON DETECTED NON DETECTED 02/19/2018 10:40 PM ERGONOMIST [facility] Comment: IGM Antibodies to HAV not detected. Does not exclude early acute or recovered HAV infection. HEP B CORE AB (IGM) NON DETECTED NON DETECTED 02/19/2018 10:40 PM ERGONOMIST [facility] Comment: IGM anti-HBC not detected. Does not exclude the possibility of exposure to or infection with HBV. HEPATITIS B SURFACE ANTIGEN NON DETECTED NON DETECTED 02/19/2018 10:40 PM ERGONOMIST [facility] Comment: A nonreactive test result does not [...] antibody 0.08 <1 S/CO 02/19/2018 10:40 PM ERGONOMIST [facility] Comment: Signal/Cutoff ratio < 0.79 is Nondetected Signal/Cutoff ratio 0.80-0.99 is Grayzone Signal/Cutoff ratio > 0.99 is Detected Supplemental assays are recommended if signal/cutoff ratio is >/=1.00. Signal/cutoff ratio result >/= 5.00 is 97% predictive of positivity for recombinant immunoblot assay (RIBA) and will be reported to the [place] Department of Public Health as required. Blood specimen (specimen) Venipuncture / Unknown 02/19/2018 4:29 PM ERGONOMIST 02/19/2018 4:37 PM ERGONOMIST us Marcus Shannon MD HEMATOLOGY ORDERABLES Fin al Result [facility] [address] [place] [address], from Last 3 Months or Most Recently Relevant to Health Maintenance Insurance Care Teams Ep Specialist Relationship Specialty Start Date End Date Provider, None [place] PCP - General 07/26/24
--- OUTSIDE RECORDS SUMMARY | 2024-12-19 08:01 | XMS_ITS | Clinical Summary ---
Author Organization [facility] Address [address] [place] [address] Care Team Providers Care Track Laying Supervisor Name Role Phone Mary Jo Ellis MD Primary Care Provider [phone]- [phone] Source Comments [facility],non-owned Affiliates and Associated Physician Practices is amultiple site organization consisting of ambulatory clinics and hospital sitesin [place], [place], [place] and [place]. This disclosure is being madepursuant to the Care Everywhere program and may not contain all information available regarding this patient. 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 PRIOR: 2012 Counts include [facility] beds at the [facility] now available FINDINGS: Computer assisted detection was utilized. The tissue density is predominantly fatty. There is no significant change since the prior mammogram. ASSESSMENT: BIRADS Category 1: Negative mammogram. RECOMMENDATION: Follow up in one year. Thank you for allowing us to participate in the care of your patient. [facility] Breast Care utilizes [email or web address] as a reminder system to notify patients of their next recommended mammogram. us Lauren Jacobson MD MAMMO ORDERABLES Final Resu lt from Last 3 Months or Most Recently Relevant to Health Maintenance Insurance ANTHEM ANTHEM ANTHEM Care Teams Track Laying Supervisor Relationship Specialty Start Date End Date Mary Jo Ellis MD [address] [place] [address] PCP - General 03/06/18
--- OUTSIDE RECORDS SUMMARY | 2024-12-19 08:01 | XMS_ITS | Encounter Summary ---
Author Organization [facility] Address [address] [place] [address] Care Team Providers Care Wagon Driver Name Role Phone Mary Jo Ellis MD Primary Care Provider [phone]- [phone] Encounter Details Date Type Department Care Team (Late st Contact Info) Description 08/22/2019 Lab Requisition [facility] [address] [place] [address] Gerardo Bedoya MD Social History Tobacco Use Types Packs/Day Years Used Date Smoking Tobacco: Never Assessed Comments No Sex and Gender Information Value Date Recorded Sex Assigned at Not on file Legal Sex Female 9:46 AM 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 This test has been [...] LAB - MICROBIOLOGY ORDERABL ES Final Result [facility] [address] [place] [address], [facility] [phone] documented in this encounter Visit Diagnoses Not on filedocumented in this encounter Additional Health Concerns Infection Onset Date Last Indicated Resolved Time COVID-19 Under Investigation 08/22/2019 08/20/2019 08/22/2019 10:10 PM CDT documented as of this encounter Care Teams Wagon Driver Relationship Specialty Start Date End Date Mary Jo Ellis MD [facility] [place] [address] PCP - General 03/06/18 documented as of this encounter
--- OUTSIDE RECORDS SUMMARY | 2024-12-19 08:01 | XMS_ITS | Encounter Summary ---
Author Organization [facility] Address [address] [place] [address] Care Team Providers Care Jumpbasting Canvas Baster Name Role Phone Mary Jo Ellis MD Primary Care Provider [phone]- [phone] Encounter Details Date Type Department Care Team (Late st Contact Info) Description 07/15/2019 Lab Requisition [facility] [address] [place] [address] Gerardo Bedoya MD Social History Tobacco Use Types Packs/Day Years Used Date Smoking Tobacco: Never Assessed Comments No Sex and Gender Information Value Date Recorded Sex Assigned at Not on file 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 This test has been [...] LAB - MICROBIOLOGY ORDERABL ES Final Result [facility] [address] [place] [address], [facility] [phone] documented in this encounter Visit Diagnoses Not on filedocumented in this encounter Additional Health Concerns Infection Onset Date Last Indicated Resolved Time COVID-19 Under Investigation 07/15/2019 07/15/2019 07/15/2019 11:24 PM CDT COVID-19 Under Investigation 08/22/2019 08/20/2019 08/22/2019 10:10 PM CDT documented as of this encounter Care Teams Jumpbasting Canvas Baster Relationship Specialty Start Date End Date Mary Jo Ellis MD [address] [place] [address] PCP - General 03/06/18 documented as of this encounter
--- OUTSIDE RECORDS SUMMARY | 2024-12-19 08:01 | XMS_ITS | Encounter Summary ---
Author Organization [facility] Address [address] [place] [address] Phone Care Team Providers Care Electrician Wiring Name Role Phone Marcus Shannon MD Primary Care Provider [phone] -[phone] Provider, None Primary Care Provider Unavailabl e Reason for Visit * Reason Comments Medication Refill Encounter Details Date Type Department Care Team (Late st Contact Info) Description 08/31/2021 Refill [facility] - [place] #[address] [place] [phone] Marcus Shannon MD [address] [address] Medication Refill Social History Tobacco Use Types Packs/Day Years Used Date Smoking Tobacco: Never Smokeless Tobacco: Never Alcohol Use Standard Drinks/Week Comments Yes 0 (1 standard drink = 0.6 oz pur e alcohol) occasionally PHQ-2 Answer Date Recorded Total Score - Questions 1-9 0 040 03/2020 Education Answer Date Recorded What is [...] (TOPROL-XL) 50 MG TABLET SR 24 HR [[id number]] 8 Status: Active Mode: Ordering in Standing Orders mode Communicated by: Nciole Hays RN Ordering user: Nicole Hays RN 08/15/[address] Ordering provider: Marcus Shannon MD Authorized by: Marcus Shannon MD Frequency: ??08/15/21 - Until Discontinued Released by: Nicole Hays RN 08/15/[address] documented in this encounter Plan of Treatment Not on file documented as of this encounter Visit Diagnoses Not on filedocumented in this encounter Additional Health Concerns Assessment Noted Time PHQ-9 Depression Total Score: 0 05/08/19 21 9:00 AM CDT documented as of this encounter Care Teams Electrician Wiring Relationship Specialty Start Date End Date Marcus Shannon MD #[address] [address] PCP - General Family Medicine 07/06/16 07/25/24 Provider, None [place] PCP - General 07/26/24 documented as of this encounter
--- OUTSIDE RECORDS SUMMARY | 2024-12-19 08:01 | XMS_ITS | Encounter Summary ---
Author Organization [facility] Address [address] [place] [address] Phone Care Team Providers Care Lead Vulcanizing Operator Name Role Phone Marcus Shannon MD Primary Care Provider [phone] -[phone] Provider, None Primary Care Provider Unavailabl e Reason for Visit * Reason Comments Medication Refill Encounter Details Date Type Department Care Team (Late st Contact Info) Description 04/25/2020 Refill [facility] - [place] [address] [place] [address] Marcus Shannon MD [address] [address] Medication Refill Social History Tobacco Use Types [...] COVID-19? No / Unsure 04/13/2020 12:40 PM BEAD WORKER SEWING documented as of this encounter Miscellaneous Notes [...] Outpatient Visits 1 year ago Essential hypertension [facility] Marcus Maher MD 1 year ago Hyperglycemia [facility] Marcus Maher MD 2 years ago Essential hypertension [facility] Marcus Maher MD 3 years ago Non morbid obesity, unspecified obesity type [facility] Upcoming Appointments Future Appointments In 1 week Marcus Shannon MD [facility] APPLICATIONS SUPPORT ANALYST - Recent and Past Visits Recent Visits No visits were found meeting these conditions. Showing recent visits within past 460 days with a meds authorizing provider and meeting all other requirements Future Appointments Date Type Provider Dept 05/07/20 Appointment Marcus Shannon MD [facility] Showing future appointments within next 90 days [...] Total Score: 0 02/19/19 19 3:00 PM BEAD WORKER SEWING documented as of this encounter Care Teams Lead Vulcanizing Operator Relationship Specialty Start Date End Date Marcus Shannon MD [address] [facility] [address] [place] [address] PCP - General Family Medicine 07/06/16 07/25/24 Provider, None [place] PCP - General 07/26/24 documented as of this encounter
[2024-12-19 11:37] LABS: Alanine Aminotransferase 19 U/L (6-35); Albumin Level 4.4 g/dL (3.5-5.1); Alkaline Phosphatase 120 U/L (38-126); Anion Gap 8 mmol/L (4-12); Aspartate Amino Transferase 71 U/L (14-36); Bilirubin,Total 0.6 mg/dL (0.2-1.3); Blood Urea Nitrogen 21 mg/dL (7-17); Calcium 9.6 mg/dL (8.4-10.2); Carbon Dioxide 27 mmol/L (22-30); Chloride 100 mmol/L (98-107); Estimated Glomerular Filt Rate 50; Glucose 91 mg/dL (65-110); Potassium 4.3 mmol/L (3.4-5.0); Sodium 135 mmol/L (137-145); Total Protein 8.4 g/dL (6.3-8.2)
== END 2024-12-19 07:58 | disposition home or self-care (01) ==
LOC: ANHGOSHLAB 07:58
PROVIDERS: PCP Nurse Practitioner Family; Visit Provider Family Medicine
DX: N28.9 Disorder of kidney and ureter, unspecified (principal); I10 Essential (primary) hypertension
CPT/HCPCS: 36415; 80053